=== PATIENT | female | born 1950 | race Hispanic/Latino ===

== ENCOUNTER 2019-12-22 14:46 | Emergency (ER) | payer BC, SELFPAY ==
--- NOTE | 2019-12-22 14:55 | ED.DIZZY ---
HPI - Dizziness General Chief Complaint: Dizziness Stated Complaint: Dizziness Time Seen by Provider: 12/22/19 14:55 Source: patient and RN notes reviewed History of Present Illness HPI Narrative: Patient is a 69-year-old female who presents the urgent care with complaints of dizziness. Patient states that the dizziness started approximately 4 to 5 days ago and has not been consistent. Patient states that it did improve however, she noticed some dizziness walking out of the store this afternoon. Patient states that time she feels like she is going to pass out . Patient states that she has had issues with inner ear problems in the right ear in the past . Does report of this dizziness being different than the past. Denies of any recent trauma, fall, head injury. Patient denies of any headache or chest pain. Patient has not used anything for her symptoms. Patient states that she did notice some right ear pressure and sinus pressure the other day but, currently denies of upper respiratory complaints. No other acute complaints. No acute distress noted. Patient had a plan of care. Related Data Home Medications Medication Instructions Recorded Confirmed metformin 1,000 mg PO DAILY 12/22/19 12/22/19 Allergies Allergy/AdvReac Type Severity Reaction Status Date / Time No Known Allergies Allergy Verified 02/17/19 10:44 Review of Systems Review of Systems: Narrative: CONSTITUTIONAL: Denies fever, chills, or sweats. EYES: Denies visual changes, redness, or discharge. ENT: Denies rhinorrhea, congestion, sore throat, or otalgia. CARDIOVASCULAR: Denies chest pain, palpitations, or edema. RESPIRATORY: Denies cough or dyspnea. GASTROINTESTINAL: Denies abdominal pain, nausea, vomiting, or diarrhea. GENITOURINARY: Denies dysuria or hematuria. SKIN: Denies rash or itching. MUSCULOSKELETAL: Denies back pain, joint pain, or myalgia. NEUROLOGIC: Reports of dizziness All other systems reviewed are negative, except as documented in HPI. PMFSH Comments At the time of my signature, I reviewed and agree with the nursing past medical, surgical, social, and family history. There is no relevant family history pertinent to the patient complaint. Exam Narrative: Exam Narrative: GENERAL: This is a well-nourished, well-developed patient, in no apparent distress. HEAD: normocephalic, atraumatic. EYES: PERRL. Sclera clear/white. Vision is grossly intact. EARS: External ears normal, auditory canals clear and without drainage, mild fluid noted behind right TM with notable cerumen, left TMs normal without perforation. Hearing grossly intact. NOSE: External nose normal with no obvious nasal discharge, nares without redness, no rhinorrhea. THROAT: Mucous membranes moist, posterior pharynx clear. Mild postnasal drainage NECK: Neck supple CARDIOVASCULAR: Regular rate and rhythm without murmurs, gallops, or rubs. RESPIRATORY: Clear to auscultation. Breath sounds equal bilaterally. No wheezes, rales, or rhonchi. SKIN: warm, intact with no suspicious lesions or rash, good texture and turgor. NEURO: awake, alert, and oriented to person, place and time. There were no obvious focal neurologic abnormalities. EXTREMITIES: No clubbing, cyanosis, or edema. Course Vital Signs Vital signs: Vital Signs Temperature 98.9 F 12/22/19 15:03 Pulse Rate 75 12/22/19 15:03 Respiratory Rate 18 12/22/19 15:03 Blood Pressure 177/71 H 12/22/19 15:03 Pulse Oximetry 100 12/22/19 15:03 Temperature 98.9 F 12/22/19 15:03 Pulse Rate 79 12/22/19 15:23 Respiratory Rate 18 12/22/19 15:03 Blood Pressure 140/61 12/22/19 15:23 Pulse Oximetry 100 12/22/19 15:03 Reviewed?patient is informed that they may have pre-hypertension or hypertension based on a blood pressure reading in the department. I recommend the patient call the primary care provider listed on their discharge instructions or a physician of their choice this week to arrange follow-up for f
[2019-12-22 15:03] VITALS: BP 177/71; PULSE 75; RESP 18; TEMP 37.2; O2SAT 100
[2019-12-22 15:22] VITALS: BP 138/59; PULSE 68
[2019-12-22 15:23] VITALS: BP 140/61; BP 148/64; PULSE 73; PULSE 79
--- NOTE | 2019-12-22 15:24 | ECG_ITS ---
Measurements Intervals [place] Rate: 69 P: 70 DC: 150 QRS: 16 QRSD: 80 T: 55 QT: 375 QTc: 402 Interpretive Statements SINUS RHYTHM NORMAL ECG Electronically Signed On 12-23-2019 10:07:47 CDT by Gianni Chahal D.O.
[2019-12-22 15:31] LABS: Glucose Point of Care 111 (65-105)
== END 2019-12-22 15:34 | disposition home or self-care (01) ==
PROVIDERS: Emergency Provider Nurse Practitioner Family; PCP Family Medicine
DX: R42 Dizziness and giddiness (principal); E11.9 Type 2 diabetes mellitus without complications; Z79.84 Long term (current) use of oral hypoglycemic drugs
CPT/HCPCS: 82948; 93005; 99213; G0463

== ENCOUNTER 2024-06-17 22:44 | Emergency (ER) | payer SELFPAY ==
--- NOTE | ~2024-06-17 | CT_ITS ---
Non-contrast CT scan of the Abdomen and Pelvis Clinical indication: Left ureteral stone Technique: 2.5 mm axial scans were obtained through the abdomen and pelvis without intravenous or or al contrast. Dose reduction technique was used on this scan by utilizing automated exposure control a nd iterative reconstruction technique. The dose-length product (DLP) was 484.18 mGy-cm. Findings: Images through the lung bases reveal no abnormalities. There is no evidence of renal or ureteral calculi. The kidneys and the ureters are nondilated. Diffusely nodular contour of liver is compatible cirrhotic change. Cholecystectomy clips are present. The spleen, pancreas, and adrenals appear normal. There is no aortic aneurysm. There is no evidence of bowel obstruction. Images through the pelvis were performed. There is no evidence of ascites or lymphadenopathy. Urinary bladder unremarkable. No pelvic mass seen. Probable chronic compression deformity L3. Impression: No renal, ureteral, or bladder stone. No hydronephrosis. Cirrhotic liver. Reviewed, dictated and finalized at [facility]. ING SUPERVISOR Impression: No renal, ureteral, or bladder stone. No hydronephrosis. Cirrhotic liver.
[2024-06-17 22:46] VITALS: BP 181/82; PULSE 80; RESP 13; TEMP 36.9; O2SAT 100
[2024-06-17 23:19] LABS: Bacteria Urine 1+ /hpf; Need Manual Microscopic Reviewed; Non Pathogenic Casts 0-2; RBC Urine >100 /hpf (0-2); Squamous Epithelial Cell Urine Occasional /hpf (Few)
[2024-06-17 23:20] LABS: Add Urine Microscopic? YES; Appearance Urine Turbid (Clear); Bilirubin Urine 1+ (Negative); Blood Urine 3+ (Negative); Color Urine Red (Yellow); Glucose Urine UA 2+ mg/dL (Negative); Ketones Urine Negative (Negative); Leukocyte Esterase Ur 2+ LEU/UL (Negative); Nitrate Urine Positive (Negative); Protein Urine 3+ mg/dL (Negative); Specific Grav Ur 1.015 (1.001-1.035); Urobilinogen Urine 0.2 mg/dL (<2.0)
[2024-06-17 23:21] LABS: WBC Urine 51-75 /hpf (0-3)
--- NOTE | 2024-06-17 23:47 | ED_ITS ---
HPI - Female Genitourinary General Chief complaint: Urogenital-Female Stated complaint: uti Time Seen by Provider: 06/17/24 23:31 History of Present Illness HPI Narrative: 73-year-old female with reported history of cervical cancer greater than 20 years ago presents to the emergency department with at bedside for dysuria and hematuria for 2 days. Patient states she has been passing blood when urinating. States yesterday she felt like she has some difficulty urinating. She has reports urinary frequency, urgency and dysuria. She is reporting some pain to her suprapubic region and left abdomen. She denies history of kidney stones. States she has been in remission for cervical cancer for greater than 20 years. She did undergo chemotherapy and radiation at that time. Related Data Home Medications Medication Instructions Recorded Confirmed metformin 500 mg tablet,extended 1,000 mg PO DAILY 12/22/19 12/22/19 release 24 hr Allergies Allergy/AdvReac Type Severity Reaction Status Date / Time No Known Allergies Allergy Verified 02/17/19 10:44 Review of Systems Review of Systems: All systems reviewed & are unremarkable except as noted in HPI and below Exam Narrative: GENERAL: Well-appearing, well-nourished, and in no acute distress. HEAD: Normocephalic, atraumatic. EYES: PERRLA and EOMI. ENT: Nares clear, no rhinorrhea or epistaxis. Mucous membranes moist. NECK: Supple. CHEST: Clear to auscultation. No respiratory distress. HEART: Regular rate and rhythm. No murmur heard. Normal peripheral pulses. ABDOMEN: Soft, nontender, nondistended, normal active bowel sounds. No rebound, guarding or rigidity. No CVA tenderness. EXTREMITIES: Normal range of motion. No edema. SKIN: Warm, dry, no rash. NEURO: No focal deficits. Alert and oriented x3 Course Vital Signs Vital signs: Vital Signs Temperature 98.4 F 06/17/24 22:46 Pulse Rate 80 06/17/24 22:46 Respiratory Rate 13 06/17/24 22:46 Blood Pressure 181/82 H 06/17/24 22:46 Pulse Oximetry 100 06/17/24 22:46 Temperature 98.4 F 06/17/24 22:46 Pulse Rate 80 06/17/24 22:46 Respiratory Rate 13 06/17/24 22:46 Blood Pressure 181/82 H 06/17/24 22:46 Pulse Oximetry 100 06/17/24 22:46 MDM - Female Genitourinary MDM Narrative Medical decision making narrative: 73-year-old female presents to the emergency department for hematuria, dysuria urinary frequency urgency and left-sided abdominal pain. Triage vitals with hypertension of 181/82, otherwise unremarkable. She is afebrile nontoxic appearing. Exam significant for the above.\ Urinalysis shows a UTI with 51-75 wbc's, 2+ leuk esterase and positive nitrates. There also greater than 100 RBCs. Given patient's abdominal pain, will obtain CT abdomen pelvis to rule out ureterolithiasis. CT abdomen pelvis without contrast shows no evidence of renal calculi or signs of collecting system type dilatation. There is diffuse bladder wall thickening with adjacent stranding consistent with a UTI. There is also evidence of an age-indeterminate L3 compression fracture, however patient has no tenderness to palpation overlying L3. Patient has been updated on workup. Suspect symptoms secondary to UTI. She is started on Keflex in the ED and this is sent to the pharmacy. Advised follow-up with PCP and discuss strict ED return precautions. They are agreeable to plan verbalized understanding. Discharged in stable condition. Lab Data 06/18/24 01:00 06/18/24 01:00 Labs: Lab Results 06/17/24 06/18/24 Range/Units 23:02 01:00 WBC 6.5 (4.5-10.0) K/mm3 RBC 4.58 (4.2-5.4) M/mm3 Hgb 14.4 (12.0-15.0) g/dL Hct 42.0 (37.0-47.0) % MCV 91.7 (80-100) fl MCH 31.4 (26-34) pg MCHC 34.3 (32-36) g/dl RDW 13.4 (11.5-14.5) % Plt Count 103 L (150-375) k/mm3 MPV 10.7 H (7.4-10.4) fl Immature Gran % (Auto) 0.5 (0-0.5) % Neut % (Auto) 58.0 (45.5-73.1) % Lymph % (Auto) 32.6 (18.3-44.2) % [place] % (Auto) 6.6 (2.6-8.5) % Eos % (Auto) 1.8 (0-4.4) % Baso % (Auto) 0.5 (0.2-1.2) % Lymph # (Auto) 2.13 (0.9-3.2) K/mm3 [place] # (Auto) 0.4 (0.1-0.6) K/mm3 Eos # (Auto) 0.1 (0-0.3) K/mm3 Baso # (Auto) 0.0 (0.0-0.1) K/mm3 Abs Immat Gran (auto) 0.03 (0.00-0.031) K/mm3 Absolute Neuts (auto) 3.8 (1.3-6.7) K/mm3 Absolute Nucleated RBC 0.000 (0.0-0.012) K/mm3 Nucleated RBC % 0.0 (0.0-0.2) % % Immature Plt Fraction 4.2 (0.9-11.2) % Sodium 137 (137-145) mmol/L Potassium 4.1 (3.4-5.0) mmol/L Chloride 102 (98-107) mmol/L Carbon Dioxide 29 (22-30) mmol/L Anion Gap 6 (4-12) mmol/L BUN 13 (7-17) mg/dL Creatinine 0.60 L (0.7-1.0) mg/dL Estim Creat Clear Calc 73 ml/min Estimated GFR > 60 (59 - ) Glucose 233 H (65-110) mg/dL Calcium 9.2 (8.4-10.2) mg/dL Total Bilirubin 0.7 (0.2-1.3) mg/dL AST 45 H (14-36) U/L ALT 27 (6-35) U/L Alkaline Phosphatase 168 H (38-126) U/L Total Protein 8.0 (6.3-8.2) g/dL Albumin 3.9 (3.5-5.1) g/dL Lipase 265 (23-300) U/L Urine Color Red H (Yellow) Urine Appearance Turbid H (Clear) Urine pH 6.0 (5.0-9.0) Ur Specific [place] 1.015 (1.001-1.035) Urine Protein 3+ H (Negative) mg/dL Urine Glucose (UA) 2+ H (Negative) mg/dL Urine Ketones Negative (Negative) mg/dL Ur Blood (Man) 3+ H (Negative) Urine Nitrate Positive H (Negative) Urine Bilirubin 1+ H (Negative) Urine Urobilinogen 0.2 (<2.0) mg/dL Add Ur Microanalysis Reviewed Leukocyte Esterase Rfl 2+ H (Negative) ROMELIA/UL Urine RBC >100 H (0-2) /hpf Urine WBC 51-75 H (0-3) /hpf Ur Squamous Epith Cells Occasional (Few) /hpf Urine Bacteria 1+ H /hpf Urine Casts 0-2 Discharge Plan Discharge Clinical Impression: Urinary tract infection Qualifiers: Urinary tract infection type: acute cystitis Hematuria presence: with hematuria Qualified Code(s): N30.01 - Acute cystitis with hematuria Patient Disposition: Home, Self-Care Condition: Stable Instructions: Antibiotic Form, Urinary Tract Infection in Women (ED) Additional Instructions: Take antibiotics as directed follow-up with your primary care provider. Return to the emergency department if you develop more blood in your urine, fever, abdominal pain, or other concerning symptoms. Prescriptions: New phenazopyridine [Pyridium] 200 mg tablet 200 mg PO TID PRN (Reason: pain) Qty: 14 0RF cephalexin 500 mg capsule 500 mg PO Q6H Qty: 28 0RF No Action metformin 500 mg tablet extended release 24 hr 1,000 mg PO DAILY fluticasone propionate [Flonase Allergy Relief] 50 mcg/actuation spray ,suspension 2 spray NASAL DAILY Qty: 15.8 0RF Rx Instructions: administer into each nostril meclizine 12.5 mg tablet 12.5 mg PO TID PRN (Reason: dizziness or vertigo) Qty: 20 0RF Follow-up/Referrals: PHYSICIAN,EMBOSSING CLERK [Primary Care Provider] - Marlon Mauro MD [Physician] - 1 Day
[2024-06-18 01:11] LABS: Basophils Percent Auto 0.5 % (0.2-1.2); Eosinophils Absolute Auto 0.1 K/mm3 (0-0.3); Eosinophils Percent Auto 1.8 % (0-4.4); Hemoglobin 14.4 g/dL (12.0-15.0); Immature Granulocyte Absolute 0.03 K/mm3 (0.00-0.031); Immature Granulocyte Percent A 0.5 % (0-0.5); Immature Platelet Fraction Pct 4.2 % (0.9-11.2); Lymphocytes Absolute Auto 2.13 K/mm3 (0.9-3.2); Lymphocytes Percent Auto 32.6 % (18.3-44.2); Mean Corpuscular HGB Conc 34.3 g/dl (32-36); Mean Corpuscular Hemoglobin 31.4 pg (26-34); Mean Corpuscular Volume 91.7 fl (80-100); Mean Platelet Volume 10.7 fl (7.4-10.4); Monocytes Absolute Auto 0.4 K/mm3 (0.1-0.6); Monocytes Percent Auto 6.6 % (2.6-8.5); Neutrophils Absolute Auto 3.8 K/mm3 (1.3-6.7); Platelet Count Result 103 k/mm3 (150-375); Red Blood Count 4.58 M/mm3 (4.2-5.4); Red Cell Distribution Width 13.4 % (11.5-14.5); White Blood Count 6.5 K/mm3 (4.5-10.0)
[2024-06-18 01:18] LABS: Alanine Aminotransferase 27 U/L (6-35); Albumin Level 3.9 g/dL (3.5-5.1); Alkaline Phosphatase 168 U/L (38-126); Anion Gap 6 mmol/L (4-12); Aspartate Amino Transferase 45 U/L (14-36); Bilirubin,Total 0.7 mg/dL (0.2-1.3); Blood Urea Nitrogen 13 mg/dL (7-17); Calcium 9.2 mg/dL (8.4-10.2); Carbon Dioxide 29 mmol/L (22-30); Chloride 102 mmol/L (98-107); Estimated CRCL calculation 73 ml/min; Estimated Glomerular Filt Rate > 60; Glucose 233 mg/dL (65-110); Lipase 265 U/L (23-300); Potassium 4.1 mmol/L (3.4-5.0); Sodium 137 mmol/L (137-145)
[2024-06-18 02:00] VITALS: BP 172/80; PULSE 86; RESP 15; O2SAT 98
[2024-06-18] MEDS: CEPHALEXIN 500 MG CAPSULE PO (03:35)
[2024-06-18 03:43] VITALS: BP 174/83; PULSE 82; RESP 14; TEMP 36.8; O2SAT 100
[2024-06-18 03:44] VITALS: BP 174/83; PULSE 82; RESP 14; TEMP 36.8; O2SAT 100
== END 2024-06-18 03:57 | disposition home or self-care (01) ==
PROVIDERS: Emergency Medicine; Emergency Provider Physician Assistant
DX: N30.01 Acute cystitis with hematuria (principal)
CPT/HCPCS: 36415; 74176; 80053; 81001; 83690; 85025; 85055; 87077; 87086; 87186; 99284; A9270

== ENCOUNTER 2025-06-26 17:22 | Inpatient (IN) | payer MEDICARE, MEDICAID, SELFPAY ==
--- OUTSIDE RECORDS SUMMARY | 2013-10-29 10:30 | XMS_ITS | Continuity of Care Document ---
Author Organization [facility] Address [address] [place] [address] [address] [place] [address] Phone Care Team Providers Care Automat Car Attendant Name Role Phone Terence ALEJANDRE MD, Nick Unavailable Unavailable Procedures Procedure Date OFFICE/OUTPATIENT VISIT, [facility]THALMIC [facility] OPHTHALMIC BIOMETRY SPECIAL EYE EXAM, INITIAL SPECIAL EYE EXAM, INITIAL Advance Directives Directive Yes / No Effective Date File Name No Information Encounters Encounter Description Practice Location Reason(s) For Visit Diagnoses Date Provider Providers Copied on Encounter OFFICE/OUTPA TIENT VISIT, [facility], [address], [place], [place], [id number], [place] tel:[phone] [facility] No Information 4 Terence Romero. [address] [facility], [address], [place], [place], [id number] , [place]. tel:[phone] Referring Provider: Nick Pratt MD P, [address] [facility] [address], [place], [address] . tel:[phone] Family History Family Member Type Diagnosis Age At Onset No Information Payers Payer name Insurance type Covered green party ID Authorrowena malagon(s) [facility] [id number] Social History Type Description Quantity Date Captured Comments Sex Female Smoking Status No Information Chief Complaint And Reason For Visit No Information Reason For Referral Reason For Referral No Information History Of Present Illness Encounter Date Complaint History Of Prese nt Illness No Information Functional Status Date Functional Assessmen t No Information Instructions Date Instruction Additional Infor mation No Information Assessments Type Assessment Date No Information Patient Care Teams Name Effective Dates (start - stop) Status Members No Information
--- NOTE | ~2025-06-26 | XR_ITS ---
EXAMINATION: XR chest 2V DATE: 06/26/2025 18:10 INDICATION: Weakness. TECHNIQUE: Frontal and lateral views of the chest were obtained. COMPARISON: Significant cardiomegaly. Moderate atherosclerotic aorta. Lungs are emphysematous. Mild congestion of the lung bases and blunting of costophrenic angles are noted particularly on the lateral view suggesting mild changes of congestive heart failure. FINDINGS: Cardiomegaly, atherosclerotic aorta and emphysema. Mild congestive changes of lung bases with minimal bilateral pleural effusion seen best in the lateral view. Mild changes of congestive heart failure. IMPRESSION: 1. Reviewed, dictated and finalized at location T. SOFTWARE DEVELOPMENT ENGINEER IMPRESSION: 1.
--- NOTE | ~2025-06-26 | CT_ITS ---
EXAMINATION: CTA abdomen pelvis DATE: 06/26/2025 22:36 INDICATION: Gastrointestinal hemorrhage. TECHNIQUE: Computed tomographic angiography (CTA) of the abdomen and pelvis was performed with 100 mL Omnipaque-350 intravenous contrast. Automated exposure control and iterative reconstruction technique were employed. The dose-length product was 908.83 mGy-cm. Maximum intensity projection 3D-reconstructions of the aorta and other arteries were constructed by the technologist on a separate workstation. COMPARISON: CT abdomen and pelvis 06/18/2025 FINDINGS: The visualized portions of lung bases demonstrate septal thickening, consistent mild pulmonary edema. There are small pleural effusions. There is left atrial enlargement of the heart. There are coronary artery calcifications. No pericardial effusion. The liver demonstrates surface nodularity, consistent with cirrhosis. There are changes of cholecystectomy. The spleen is normal in size. The pancreas, adrenal glands, and left kidney are normal. There is a 1.3 cm cyst in right kidney. There is a 1.5 cm mass at anterior bladder wall. There is material in the bladder lumen, consistent with hematoma. There is diverticulosis of the colon without evidence of diverticulitis. The appendix is not visualized. There are no dilated loops of bowel. There is wall thickening of the rectum. There is a small volume of ascites. There is no significant stenosis of celiac axis, superior mesenteric artery, the renal arteries, or inferior mesenteric artery. There are no pathologically enlarged lymph nodes. There is severe lumbar spondylosis. There are chronic burst fractures of L3 and L4. There is a hemangioma in L1 vertebral body. IMPRESSION: 1. Mild pulmonary edema with small pleural effusions. 2. Cirrhosis of the liver. 3. Small volume of ascites. 4. Bladder mass suspicious for urothelial carcinoma. Hematoma in the bladder. 5. Wall thickening of the rectum, consistent with proctitis. Reviewed, dictated and finalized at location E. NFORMATICIAN
--- NOTE | ~2025-06-26 | CT_ITS ---
CT pelvis without contrast Clinical History: Cystogram, eval for progression of perforation Comparison: CT abdomen and pelvis without contrast [address] pelvis with contrast 1 day prior Technique: Pelvic images Coronal, sagittal reformats CT images acquired with automatic exposure control for dose reduction DLP: 825 mGy-cm Findings: Without intravenous contrast, sensitivity for detecting visceral parenchymal abnormalities decreased. Initial images demonstrate urinary bladder collapsed with Mitchell catheter, with persistent foci of intraluminal gas and extravesicular/pelvic extraperitoneal gas locules. Persistent large pelvic ascites. Subsequent images after injecting contrast through Mitchell catheter balloon demonstrated urinary bladder minimally distended with no definite extravasation. Delayed images demonstrate small extravesicular contrast with urinary bladder completely collapsed around Mitchell catheter. No other acute abnormality or significant change. IMPRESSION: 1. Small bladder leak again identified. Reviewed, dictated and finalized at location R. RIMENTAL OUTBOARD MOTORS MECHANIC
--- NOTE | ~2025-06-26 | CT_ITS ---
EXAMINATION: CT pelvis w con COMPARISON: None HISTORY: CT Cystogram to evaluate for bladder perforation TECHNIQUE: Axial images were obtained without IV contrast. Sagittal, coronal reconstruction images were obtained from the axial views. CT scan performed using dose optimization techniques including the following automated exposure control; adjustment of mA and/or kV; use of iterative reconstruction technique. Automatic exposure control was used to reduce radiation dose. Permanent radiation dose record is archived to PACS. FINDINGS: Moderate degenerative changes of the visualized lumbar spine. Minimal degenerative changes in the sacroiliac joints bilaterally. Minimal degenerative changes within the acetabular femoral joints bilaterally. There is no fracture or dislocation identified. No avascular necrosis. There is no intramuscular hemorrhage or subcutaneous fluid collection There are postsurgical changes noted in the abdominal wall. Moderate amount of free fluid is noted in the pelvis. There is a Mitchell catheter within the bladder with contrast within the bladder with contrast extending beyond the anterior wall of the bladder with a defect in the bladder wall noted anteriorly and superiorly measuring 9 mm. There is an noted within the space of Retzius and the retroperitoneal space anterior to the bladder. Moderate fecal content throughout the large bowel. Moderate diverticulosis. There is no gross colitis or diverticulitis. The uterus is atrophic. No adnexal mass. IMPRESSION: Defect within the bladder wall detailed above with extravesicular contrast. Reviewed, dictated and finalized at location P. ER DRIER OPERATOR IMPRESSION: Defect within the bladder wall detailed above with extravesicular c ontrast.
--- NOTE | ~2025-06-26 | CT_ITS ---
CT ABDOMEN AND PELVIS WITHOUT CONTRAST Clinical History: fever post-cysto, check for potential obstruction Comparison: CTA abdomen and pelvis 06/26/2025 Technique: Unenhanced axial images lung bases to symphysis pubis Coronal, sagittal reformats CT images acquired with automatic exposure control for dose reduction DLP: 1297 mGy-cm Findings: Without intravenous contrast, sensitivity for detecting visceral parenchymal abnormalities decreased. Lung bases: Clear. Visualized heart and pericardium: Unremarkable. Liver: Cirrhosis. Gallbladder: Removed. Spleen: Enlarged. Pancreas: Unremarkable. Adrenal glands: Unremarkable. Kidneys: Right kidney- No hydronephrosis. No renal stones. Left kidney- No hydronephrosis. No renal stones. Distal esophagus/stomach: Unremarkable. Small bowel loops: Normal caliber and wall thickness. Colon: Diverticula. Normal caliber and wall thickness. Appendix not seen. Nodes: No enlarged nodes. Peritoneum: No ascites. No free intraperitoneal air. Urinary bladder: Collapsed around Mitchell catheter. Intraluminal gas. Intramural gas. Small extraperitoneal gas along bladder. Uterus: Unremarkable. Adnexa: No masses. Bones: No acute bony abnormality. Soft tissues: Mild body wall anasarca. Lower abdominal wall/vulvar skin thickening/cellulitis. Unopacified abdominal aorta: No aneurysmal dilatation. IMPRESSION: 1. Highly worrisome for urinary bladder perforation. Reviewed, dictated and finalized at location R. CIPLE INDUSTRIAL HYGIENIST
[2025-06-26 17:39] VITALS: BP 130/38; PULSE 102; RESP 18; TEMP 37.3; O2SAT 98
--- NOTE | 2025-06-26 17:53 | ECG_ITS ---
Test Date: 2025-06-26 20:28:08 Measurements Intervals [place] Rate: 93 P: 13 [place]: 144 QRS: 17 QRSD: 77 T: 152 QT: 350 QTc: 436 Interpretive Statements SINUS RHYTHM LOW QRS VOLTAGE IN PRECORDIAL LEADS [QRS DEFLECTION < 1.0 mV IN CHEST LEADS] NONSPECIFIC T-WAVE ABNORMALITY ABNORMAL ECG No previous ECG available for comparison Electronically Signed On 06-27-2025 07:55:18 WILDLIFE TECHNICIAN by Joseluis Aguilar M.D.
[2025-06-26 20:30] VITALS: BP 139/46; PULSE 89; TEMP 37.5; O2SAT 100
[2025-06-26 20:45] LABS: Immature Granulocyte Percent A 0.4 % (0-0.5); Lymphocytes Absolute Auto 1.72 K/mm3 (0.9-3.2); Mean Corpuscular HGB Conc 23.8 g/dl (32-36); Mean Corpuscular Hemoglobin 16.2 pg (26-34); Mean Corpuscular Volume 68.1 fl (80-100); Nucleated Red Blood Cells Absolute Auto 0.040 K/mm3 (0.0-0.012); Nucleated Red Blood Cells Perc 0.5 % (0.0-0.2); Platelet Count Result 121 k/mm3 (150-375); Red Blood Count 1.91 M/mm3 (4.2-5.4); White Blood Count 7.5 K/mm3 (4.5-10.0)
[2025-06-26 20:49] LABS: Hematocrit 13.0 % (37.0-47.0); Hemoglobin 3.1 g/dL (12.0-15.0)
[2025-06-26 20:58] LABS: Anisocytosis 2+; Hypochromasia 1+; Microcytosis 1+ (NORMAL); Ovalocytes 1+; Schistocytes None Seen
[2025-06-26 21:02] LABS: Alanine Aminotransferase 14 U/L (6-35); Albumin Level 2.8 g/dL (3.5-5.1); Alkaline Phosphatase 79 U/L (38-126); Anion Gap 4 mmol/L (4-12); Aspartate Amino Transferase 20 U/L (14-36); Bilirubin,Total 1.2 mg/dL (0.2-1.3); Blood Urea Nitrogen 11 mg/dL (7-17); Calcium 7.9 mg/dL (8.4-10.2); Carbon Dioxide 23 mmol/L (22-30); Chloride 108 mmol/L (98-107); Estimated Glomerular Filt Rate > 60; Glucose 164 mg/dL (65-110); Potassium 4.1 mmol/L (3.4-5.0); Sodium 135 mmol/L (137-145); Total Protein 5.9 g/dL (6.3-8.2)
[2025-06-26 21:41] VITALS: BP 101/83; PULSE 98; RESP 21; O2SAT 100
[2025-06-26 21:42] VITALS: PULSE 100
[2025-06-26] MEDS: PANTOPRAZOLE SODIUM IV 40 MG VIAL 80 MG IV PUSH (22:25)
[2025-06-26] MEDS: SODIUM CHLORIDE 0.9% IV 250 ML 30 ML IV CONT (22:42)
--- NOTE | 2025-06-26 22:44 | ED_ITS ---
HPI - General Adult General Chief complaint: Unspecified Stated complaint: headache, UTI Time Seen by Provider: 06/26/25 21:50 History of Present Illness HPI narrative: 74-year-old female with a history of remote cervical cancer treated with radiation therapy and chemotherapy. Did not have any surgeries done as patient states the area of the cancer was in a difficult location. For last few weeks patient has been complaining of dizziness with walking, stomach pain, fatigue, headaches, urinary complaints and bleeding in the toilet bowl. She thinks the bleeding could be from her rectum or vagina or urination and only notices it in the toilet bowl. No history of hemorrhoids but states that she is having straining today defecate. She has had a prior colonoscopy which just polyps. No previous colon cancer to her knowledge. Was otherwise in her normal state of health. No history of transfusions. No history of GI bleeding. Does not take any blood thinner medications. Related Data Home Medications ?Medication ?Instructions ?Recorded ?Confirmed ?Last Taken ?Type No Home Medications 06/27/25 06/27/25 U nknown History Allergies Allergy/AdvReac Type Severity Reaction Status Date / Time No Known Allergies Allergy Verified 06/27/25 04:10 Review of Systems 2 Review of Systems: As reviewed above in HPI [facility] Family History Family History (Updated 06/27/25 @ 04:13 by Josiane García RN) Mother Hypertension Father Cancer Grandparent Cancer Social History Social History Smoking status: Former smoker Tobacco type: cigarettes Alcohol intake: current Substance use: never Substance use type: does not use Lack of Transportation: No Lack of Food: Sometimes True Current Housing: I Have Housing Concerned About Future Housing: No Difficulty Paying Gas/Electric Bills: YES Difficulty Paying for Meds: No Currently Unemployed: No Education: High School Diploma/GED Difficulty w/ Childcare or Family Care: No Spiritual care concerns: No Exam 2 Narrative: GENERAL: Ill-appearing with pallor and weakness generalized. Not any acute respiratory distress HEAD: [Normocephalic, atraumatic.] EYES: Pupils equal reactive, extraocular movements are intact, pale conjunctiva bilaterally ENT: Nares clear, no rhinorrhea or epistaxis. Mucous membranes moist. NECK: Supple. CHEST: [Clear to auscultation. No respiratory distress.] HEART: [Regular rate and rhythm]. No murmur heard. [Normal peripheral pulses.] ABDOMEN: Tender to palpation but no signs of rigidity guarding or peritonitis. Soft. Nondistended. EXTREMITIES: Normal range of motion. [No edema.] SKIN: Warm, dry, no rash. NEURO: [No focal deficits]. Alert and oriented [x3.] PSYCH: [Normal mood and affect.] Course Vital Signs Vital signs: Vital Signs Temperature 37.3 C 06/26/25 17:39 Pulse Rate 102 H 06/26/25 17:39 Respiratory Rate 18 06/26/25 17:39 Blood Pressure 130/38 L 06/26/25 17:39 Pulse Oximetry 98 06/26/25 17:39 Oxygen Delivery Room Air 06/26/25 17:39 Temperature 36.4 C L 06/27/25 04:00 Pulse Rate 82 06/27/25 04:00 Respiratory Rate 16 06/27/25 04:00 Blood Pressure 112/86 06/27/25 04:00 Pulse Oximetry 100 06/27/25 04:00 Oxygen Delivery Room Air 06/26/25 17:39 Medical Decision Making [facility] Narrative Medical decision making narrative: 74-year-old female with a history of remote cervical cancer treated with radiation therapy and chemotherapy. Did not have any surgeries done as patient states the area of the cancer was in a difficult location. For last few weeks patient has been complaining of dizziness with walking, stomach pain, fatigue, headaches, urinary complaints and bleeding in the toilet bowl. She thinks the bleeding could be from her rectum or vagina or with urination and only notices it in the toilet bowl. No history of hemorrhoids but states that she is having straining today defecate. She has had a prior colonoscopy which just polyps. No previous colon cancer to her knowledge. Was otherwise in her normal state of health. No history of transfusions. No history of GI bleeding. Does not take any blood thinner medications. Patient is ill-appearing and very pale. Endorsing generalized weakness and she and acute I did bleeding which could be GI or vaginal in nature. Does have a history of remote cervical cancer that was not treated surgically. Mildly tachycardic. No fever or blood pressure concerns. Broad workup obtained including a CT scan with angiographies of the abdomen pelvis for further evaluation as her hemoglobin came back at 3.1 with severe anemia compared to her baseline 14. No leukocytosis. Differential includes active GI bleeding verses cancerous formation versus cervical/ cancer versus bleeding. Possibility of leukemia as well. Patient given 3 units of packed red blood cells. Digital rectal examination shows guaiac-negative stool and minor small external hemorrhoid that was not bleeding. Patient had 1 unit packed red blood cells and repeat H&H showed significant improvement of 4.7 hemoglobin. Two more units of packed red blood cells going infusing and repeat H&H ordered. CT scan shows several anomalies including urinary bladder wall thickening with soft tissue lesion concerning for malignancy with associated blood products. Also other findings such as proctocolitis and diffuse enterocolitis as well as potential hemorrhoid with tiny hyperdense focus which could be a small hyperemic area or small extravasation of contrast but otherwise no active GI bleed noted per radiology interpretation. Attempted to reach Urology for consult x2 and did not call back. Patient will be admitted to the hospital for urology evaluation and and continued resuscitation with packed red blood cells. Spoke to the hospitalist who accepted the patient to the IMU at this time. Patient started on antibiotics for proctitis and enteritis with Rocephin and Flagyl. Blood cultures obtained. Patient remains hemodynamically stable. Medical Records Medical records reviewed: Yes I reviewed the external patient's medical records. Vital Signs Vital Signs: Vital Signs Temperature 37.3 C 06/26/25 17:39 Pulse Rate 102 H 06/26/25 17:39 Respiratory Rate 18 06/26/25 17:39 Blood Pressure 130/38 L 06/26/25 17:39 Pulse Oximetry 98 06/26/25 17:39 Oxygen Delivery Room Air 06/26/25 17:39 Temperature 36.4 C L 06/27/25 04:00 Pulse Rate 82 06/27/25 04:00 Respiratory Rate 16 06/27/25 04:00 Blood Pressure 112/86 06/27/25 04:00 Pulse Oximetry 100 06/27/25 04:00 Oxygen Delivery Room Air 06/26/25 17:39 Lab Data Lab results reviewed: Yes I reviewed the patient's lab results. 06/27/25 02:39 06/26/25 20:35 Labs: Lab Results 06/26/25 06/26/25 06/26/25 Range/Units 20:35 23:14 23:15 WBC 7.5 (4.5-10.0) K/mm3 RBC 1.91 L (4.2-5.4) M/mm3 Hgb 3.1 L* D (12.0-15.0) g/dL Hct 13.0 L* (37.0-47.0) % MCV 68.1 L (80-100) fl MCH 16.2 L (26-34) pg MCHC 23.8 L (32-36) g/dl RDW 19.4 H (11.5-14.5) % Plt Count 121 L (150-375) k/mm3 MPV 10.8 H (7.4-10.4) fl Immature Gran % (Auto) 0.4 (0-0.5) % Neut % (Auto) 69.2 (45.5-73.1) % Lymph % (Auto) 23.0 (18.3-44.2) % [place] % (Auto) 7.1 (2.6-8.5) % Eos % (Auto) 0.3 (0-4.4) % Baso % (Auto) 0.0 L (0.2-1.2) % Lymph # (Auto) 1.72 (0.9-3.2) K/mm3 [place] # (Auto) 0.5 (0.1-0.6) K/mm3 Eos # (Auto) 0.0 (0-0.3) K/mm3 Baso # (Auto) 0.0 (0.0-0.1) K/mm3 Abs Immat Gran (auto) 0.03 (0.00-0.031) K/mm3 Absolute Neuts (auto) 5.2 (1.3-6.7) K/mm3 Absolute Nucleated RBC 0.040 H (0.0-0.012) K/mm3 Band Neutrophils % Not Reportable Nucleated RBC % 0.5 H (0.0-0.2) % Platelet Estimate Decreased (Adequate) Hypochromasia 1+ Anisocytosis 2+ Microcytosis 1+ (NORMAL) Ovalocytes 1+ Schistocytes None seen Absolute Retic 0.08 (0.02-0.10) 10^6/uL Percent Retic 4.48 H (0.7-4.3) % Immature Retic Fraction 29.7 H (3.0-15.9) % Retic Hgb Content 14.0 L (28.2-36.6) pg Haptoglobin Pending PT 19.6 H (11.1-14.7) Seconds INR 1.7 APTT 35.4 (22.3-36.8) Seconds Sodium 135 L (137-145) mmol/L Potassium 4.1 (3.4-5.0) mmol/L Chloride 108 H (98-107) mmol/L Carbon Dioxide 23 (22-30) mmol/L Anion Gap 4 (4-12) mmol/L BUN 11 (7-17) mg/dL Creatinine 0.80 (0.7-1.0) mg/dL Estim Creat Clear Calc Not Reportable Estimated GFR > 60 (59 - ) Glucose 164 H (65-110) mg/dL Calcium 7.9 L (8.4-10.2) mg/dL Iron 22 L (37-170) ug/dL TIBC 400 (261-462) ug/dL % Saturation 6 L (20-50) % Ferritin 4.44 L (11.1-264) ng/mL Total Bilirubin 1.2 (0.2-1.3) mg/dL AST 20 (14-36) U/L ALT 14 (6-35) U/L Alkaline Phosphatase 79 (38-126) U/L Total Protein 5.9 L (6.3-8.2) g/dL Albumin 2.8 L (3.5-5.1) g/dL Vitamin B12 908.0 (239-931) pg/mL Folate 13.4 (2.76->20) ng/mL Urine Color (Yellow) Urine Appearance (Clear) Urine pH (5.0-9.0) Ur Specific Gonzales (1.001-1.035) Urine Protein (Negative) mg/dL Urine Glucose (UA) (Negative) mg/dL Urine Ketones (Negative) mg/dL Ur Blood (Man) (Negative) Urine Nitrate (Negative) Urine Bilirubin (Negative) Urine Urobilinogen (<2.0) mg/dL Leukocyte Esterase Rfl (Negative) ROMELIA/UL Urine RBC (0-2) /hpf Urine WBC (0-3) /hpf Ur Squamous Epith Cells (Few) /hpf Urine Bacteria (None) /hpf Blood Type O Positive Antibody Screen Negative Crossmatch See Detail 06/27/25 Range/Units 00:08 WBC (4.5-10.0) K/mm3 RBC (4.2-5.4) M/mm3 Hgb (12.0-15.0) g/dL Hct (37.0-47.0) % MCV (80-100) fl MCH (26-34) pg MCHC (32-36) g/dl RDW (11.5-14.5) % Plt Count (150-375) k/mm3 MPV (7.4-10.4) fl Immature Gran % (Auto) (0-0.5) % Neut % (Auto) (45.5-73.1) % Lymph % (Auto) (18.3-44.2) % [place] % (Auto) (2.6-8.5) % Eos % (Auto) (0-4.4) % Baso % (Auto) (0.2-1.2) % Lymph # (Auto) (0.9-3.2) K/mm3 [place] # (Auto) (0.1-0.6) K/mm3 Eos # (Auto) (0-0.3) K/mm3 Baso # (Auto) (0.0-0.1) K/mm3 Abs Immat Gran (auto) (0.00-0.031) K/mm3 Absolute Neuts (auto) (1.3-6.7) K/mm3 Absolute Nucleated RBC (0.0-0.012) K/mm3 Band Neutrophils % Nucleated RBC % (0.0-0.2) % Platelet Estimate (Adequate) Hypochromasia Anisocytosis Microcytosis (NORMAL) Ovalocytes Schistocytes Absolute Retic (0.02-0.10) 10^6/uL Percent Retic (0.7-4.3) % Immature Retic Fraction (3.0-15.9) % Retic Hgb Content (28.2-36.6) pg Haptoglobin PT (11.1-14.7) Seconds INR APTT (22.3-36.8) Seconds Sodium (137-145) mmol/L Potassium (3.4-5.0) mmol/L Chloride (98-107) mmol/L Carbon Dioxide (22-30) mmol/L Anion Gap (4-12) mmol/L BUN (7-17) mg/dL Creatinine (0.7-1.0) mg/dL Estim Creat Clear Calc Estimated GFR (59 - ) Glucose (65-110) mg/dL Calcium (8.4-10.2) mg/dL Iron (37-170) ug/dL TIBC (261-462) ug/dL % Saturation (20-50) % Ferritin (11.1-264) ng/mL Total Bilirubin (0.2-1.3) mg/dL AST (14-36) U/L ALT (6-35) U/L Alkaline Phosphatase (38-126) U/L Total Protein (6.3-8.2) g/dL Albumin (3.5-5.1) g/dL Vitamin B12 (239-931) pg/mL Folate (2.76->20) ng/mL Urine Color Dark red H (Yellow) Urine Appearance Turbid H (Clear) Urine pH 7.0 (5.0-9.0) Ur Specific Gonzales 1.010 (1.001-1.035) Urine Protein 3+ H (Negative) mg/dL Urine Glucose (UA) Negative (Negative) mg/dL Urine Ketones Negative (Negative) mg/dL Ur Blood (Man) 3+ H (Negative) Urine Nitrate Negative (Negative) Urine Bilirubin 1+ H (Negative) Urine Urobilinogen 0.2 (<2.0) mg/dL Leukocyte Esterase Rfl Trace H (Negative) ROMELIA/UL Urine RBC >100 H (0-2) /hpf Urine WBC 4-6 H (0-3) /hpf Ur Squamous Epith Cells Occasional (Few) /hpf Urine Bacteria 3+ H (None) /hpf Blood Type Antibody Screen Crossmatch Imaging Data Attestation: I personally reviewed and interpreted this imaging study as follows: My impression: Impressions Chest X-Ray 06/26/25 18:12 IMPRESSION: 1. Enterocolitis, proctitis, urinary bladder wall mass with potential malignancy in blood products. No active GI bleed noted per radiology. Critical Care Time Critical Care Time Critical Care Time: Yes Total Critical Care Time: 60 Discharge Plan Discharge Clinical Impression: Severe anemia, ABLA (acute blood loss anemia), Bladder mass, Enterocolitis, Proctitis Patient Disposition: Still a Patient Condition: Stable
[2025-06-26 23:19] VITALS: BP 134/58; PULSE 97; RESP 21; O2SAT 98
[2025-06-26 23:35] LABS: Ferritin 4.44 ng/mL (11.1-264); Iron 22 ug/dL (37-170); Percent Iron Saturation 6 % (20-50)
[2025-06-26 23:36] LABS: Immature Reticulocyte Fraction 29.7 % (3.0-15.9); Reticulocyte Hemoglobin Conten 14.0 pg (28.2-36.6); Reticulocytes Absolute 0.08 10^6/uL (0.02-0.10)
[2025-06-26 23:38] LABS: INR 1.7; Prothrombin Time 19.6 Seconds (11.1-14.7)
[2025-06-26 23:38] LABS: Vitamin B12 908.0 pg/mL (239-931)
[2025-06-26 23:39] LABS: Partial Thromboplastin Time 35.4 Seconds (22.3-36.8)
[2025-06-27] VITALS (23 sets, daily range): BP systolic 94–129; BP diastolic 34–86; PULSE 71–101; RESP 16–25; TEMP 36.2–37.2; O2SAT 97–100; BMI 39.3
[2025-06-27 00:32] LABS: Add Urine Microscopic? YES
[2025-06-27 00:33] LABS: Appearance Urine Turbid (Clear); Glucose Urine UA Negative (Negative); Nitrate Urine Negative (Negative); Specific Grav Ur 1.010 (1.001-1.035)
[2025-06-27 00:34] LABS: Leukocyte Esterase Ur Trace LEU/UL (Negative)
[2025-06-27] MEDS: ONDANSETRON INJ 4 MG/2 ML VIAL IV PUSH (00:59)
[2025-06-27] MEDS: TUBING, BLOOD SET 1 EACH XX ×2 (01:16→04:21)
--- NOTE | 2025-06-27 01:33 | PC.NURSE ---
MD verbally states to not get H and H drawn until at least one unit of blood has been administered.
--- NOTE | 2025-06-27 01:48 | PC.NURSE ---
ZION grant first set of blood cultures from R AC when IV was initially inserted.
[2025-06-27 02:49] LABS: Hematocrit 16.8 % (37.0-47.0); Hemoglobin 4.7 g/dL (12.0-15.0)
--- NOTE | 2025-06-27 03:08 | PC.NURSE ---
Per MD and ore charger, this RN will start pt 2nd unit of blood and wait about 30 minutes before administering Iv antibiotics in pt another IV. This RN started pt second unit of blood at 0303 and will wait 30 minutes before starting IV antibiotics in pt R AC IV. Just precautions in case pt were to have a reaction we would be able to differ which is giving the pt a reaction.
--- NOTE | 2025-06-27 03:24 | WPCEDHO ---
ED Hand Off Checklist All vitals saved: YES IV Site documented: YES All med administrations documented: YES Triage Note Triage Note Pt states, I've been sick for 06/26/25 21:34 like a month. Pt reports headache, dizziness when walking, UTI symptoms, stomachache, fatigue, and difficulty walking due to generalized weakness x at least three weeks. Temp 99.2F. Pt also reports that she noticed bright red blood in the toilet, primarily when she urinates, but notices it with BM's as well. Pt states she's unsure if its only urine or if present in stool also . Pt's inner eyelids appears very pale. A&Ox4. HR 102, BP 130/38. Denies taking any blood thinners. Pt reports one month ago she weighed 82.5kg, no recent weight, pt not able to stand on triage scale. RN agrees with this assessment. Allergies No Known Allergies Allergy (Verified 02/17/19 10:44) Active Medications including assessments/comments Sodium Chloride (Normal Saline Iv) 250 mls @ 30 mls/hr IV CONT .[id number] STA Stop: 06/27/25 06:10 Last Admin: 06/26/25 22:42 Dose: 30 mls/hr Documented By: SERENA Infusion/Titration Document 06/26/25 22:42 SERENA (Rec: 06/26/25 22:42 SERENA [id number]) Intake IV Site Peripheral Access Left Antecubital Container Volume 250 Waste Amount 0 Dosing Infusion Rate 30 Cumulative Dose Not Applicable Increase/Decrease Started Elapsed Time Elapsed Time ( 0m minutes) Administered/Completed Medications Discontinued Medications IV Miscellaneous Supplies (Tubing, Blood Set) Confirm Administered Dose 1 each XX .STK-MED ONE Stop: 06/27/25 01:05 Last Admin: 06/27/25 01:16 Dose: 1 each Documented By: ARTURO Ondansetron HCl (Ondansetron Inj 4 Mg/2 Ml Vial) 4 mg IV PUSH ONCE STA Stop: 06/27/25 00:51 Last Admin: 06/27/25 00:59 Dose: 4 mg Documented By: SERENA Pantoprazole Sodium (Pantoprazole Sodium Iv 40 Mg Vial) 80 mg IV PUSH ONCE STA Stop: 06/26/25 21:52 Last Admin: 06/26/25 22:25 Dose: 80 mg Documented By: MCO Notes 06/27/25 03:08 Nurse Note by Xin Morse MD and transit man, this RN will start pt 2nd unit of blood and wait about 30 minutes before administering Iv antibiotics in pt another IV. This RN started pt second unit of blood at 0303 and will wait 30 minutes before starting IV antibiotics in pt R AC IV. Just precautions in case pt were to have a reaction we would be able to differ which is giving the pt a reaction. Initialized on 06/27/25 03:08 - END OF NOTE 06/27/25 01:48 Nurse Note by Xin Morse RN grant first set of blood cultures from R AC when IV was initially inserted. Initialized on 06/27/25 01:48 - END OF NOTE 06/27/25 01:33 Nurse Note by Xin Morse MD verbally states to not get H and H drawn until at least one unit of blood has been administered. Initialized on 06/27/25 01:33 - END OF NOTE Interventions/Assessments Cardiac Monitoring Start: 06/26/25 17:50 Freq: Status: Active Protocol: Document 06/26/25 21:42 MCO (Rec: 06/26/25 21:43 MCO [id number]) Grid Inspector Assessment Grid Inspector Yes Applied Pulse Rate (60-100) 100 EKG Rythm Sinus Rhythm General Assessment Start: 06/26/25 17:50 Freq: Status: Active Protocol: Document 06/26/25 21:36 MCO (Rec: 06/26/25 21:37 MCO [id number]) GA Neurological Assessment Neurological Yes Assessment WNL GA HEENT Assessment Head Symptoms Sinus Pressure/Pain Neck Symptoms None Neck Movement No Limitations GA Genitourinary Assessment Genitourinary Unable to Void,Burning,Hematuria,Retention Symptoms Voiding Method Toilet Urine Color Red,Yellow IV / Saline Lock, Insert Start: 06/26/25 17:22 Freq: Status: Active Protocol: Document 06/27/25 01:47 KRZ (Rec: 06/27/25 01:47 KRZ [id number]) IV Assessment Peripheral Access Right Antecubital IV Catheter Access Initiated IV Insertion Date 06/27/25 IV Insertion Time 01:47 Catheter Gauge 20 IV Insertion 1 Attempts Ultrasound Used for No Placement IV Site Assessment WNL IV Care and WNL Maintenance PA: Neurological Assessment Start: 06/26/25 17:22 Freq: Status: Active Protocol: Document 06/26/25 21:37 [facility] (Rec: 06/26/25 21:38 [facility] [id number]) Neurological Assessment Level of Alert,Awake Consciousness Arousable to Verbal Orientation Oriented to Person,Oriented to Place,Oriented to Time Neurological Headache,Nausea/Vomiting,Weakness, General Symptoms Behavior Appropriate,Cooperative Patient Able to Comprehend Comprehension Memory Description Intact,[place] Intact,Short Term Intact Alberto Coma Scale Eyes Open Verbal Oriented and Alert Motor Follows Commands [place] Coma Total 15 Score Last Vital Signs Temperature 98.9 F 06/27/25 03:02 Pulse Rate 81 06/27/25 03:23 Respiratory Rate 22 H 06/27/25 03:23 Pulse Oximetry 99 06/27/25 03:23 Blood Pressure 119/40 L 06/27/25 03:23 Blood Pressure Mean 66 06/27/25 03:23 Blood Pressure Position Supine 06/27/25 03:23 Oxygen Delivery Room Air 06/26/25 17:39 Weight 82.5 kg 06/26/25 21:34 Last Result - Abnormals Only RBC 1.91 M/mm3 (4.2-5.4) L 06/26/25 20:35 Hgb 4.7 g/dL (12.0-15.0) L* 06/27/25 02:39 Hct 16.8 % (37.0-47.0) L* 06/27/25 02:39 MCV 68.1 fl (80-100) L 06/26/25 20:35 MCH 16.2 pg (26-34) L 06/26/25 20:35 MCHC 23.8 g/dl (32-36) L 06/26/25 20:35 RDW 19.4 % (11.5-14.5) H 06/26/25 20:35 Plt Count 121 k/mm3 (150-375) L 06/26/25 20:35 MPV 10.8 fl (7.4-10.4) H 06/26/25 20:35 Baso % (Auto) 0.0 % (0.2-1.2) L 06/26/25 20:35 Absolute Nucleated RBC 0.040 K/mm3 (0.0-0.012) H 06/26/25 20:35 Nucleated RBC % 0.5 % (0.0-0.2) H 06/26/25 20:35 Percent Retic 4.48 % (0.7-4.3) H 06/26/25 23:14 Immature Retic Fraction 29.7 % (3.0-15.9) H 06/26/25 23:14 Retic Hgb Content 14.0 pg (28.2-36.6) L 06/26/25 23:14 PT 19.6 Seconds (11.1-14.7) H 06/26/25 23:15 Sodium 135 mmol/L (137-145) L 06/26/25 20:35 Chloride 108 mmol/L (98-107) H 06/26/25 20:35 Glucose 164 mg/dL (65-110) H 06/26/25 20:35 Calcium 7.9 mg/dL (8.4-10.2) L 06/26/25 20:35 Iron 22 ug/dL (37-170) L 06/26/25 20:35 % Saturation 6 % (20-50) L 06/26/25 20:35 Ferritin 4.44 ng/mL (11.1-264) L 06/26/25 20:35 Total Protein 5.9 g/dL (6.3-8.2) L 06/26/25 20:35 Albumin 2.8 g/dL (3.5-5.1) L 06/26/25 20:35 Urine Color Dark red (Yellow) H 06/27/25 00:08 Urine Appearance Turbid (Clear) H 06/27/25 00:08 Urine Protein 3+ mg/dL (Negative) H 06/27/25 00:08 Ur Blood (Man) 3+ (Negative) H 06/27/25 00:08 Urine Bilirubin 1+ (Negative) H 06/27/25 00:08 Leukocyte Esterase Rfl Trace ROMELIA/UL (Negative) H 06/27/25 00:08 Urine RBC >100 /hpf (0-2) H 06/27/25 00:08 Urine WBC 4-6 /hpf (0-3) H 06/27/25 00:08 Urine Bacteria 3+ /hpf (None) H 06/27/25 00:08 Crossmatch See Detail 06/26/25 23:14 Most Recent Suicide Severity Rating Suicide Severity Rating NO RISK INDICATED 06/26/25 21:34
[2025-06-27] MEDS: cefTRIAXone 2 GM in SODIUM CHLORIDE 0.9% IV 100 ML 200 ML IVPB (03:39)
--- NOTE | 2025-06-27 03:51 | ADMGEN ---
This patient, Barbara Desir, was admitted to Medical Room 252-01. Patient/family oriented to hospital policies and general routines including ID bracelet, bed and alarms, visiting hours, pain management, procedures, bathroom and other care routines, personal items, smoking policy, room service/diet, and visiting hours. Information on how to activate the Rapid Response Team has been discussed. Patient/Family are encouraged to report perceived risks to care and to ask questions if they do not understand what they are told or what they should do.
[2025-06-27] MEDS: metroNIDAZOLE 500 MG/ISO 100ML 500 MG/100 ML BAG 100 MG IVPB (04:21)
[2025-06-27] MEDS: SODIUM CHLORIDE 0.9% IV 250 ML 30 ML (04:21)
--- NOTE | 2025-06-27 04:31 | PM.IMHP ---
H&P: HPI History of Present Illness Date/Time: 06/27/25 04:31 Chief Complaint: This is a 74-year-old female patient who is a past medical history of having cervical cancer with radiation and chemotherapy. She was not able to have surgery due to the proximity of the cancer to the rectal area. The patient stated that she has been having some bleeding for over a month now. She stated she was not sure if it was coming from her rectum are her urinary tract. She stated when she urinates it is bright red blood. She stated that she has been feeling weak but is not short of breath. She denies any fever or chills. She denies any rectal bleeding.She does feel somewhat weak. She has had a prior colonoscopy and has had some polyps removed. The patient was at sure if she was bleeding from her vagina but she did notice bright red blood in the toilet when she urinated. She is not on any blood thinner. Her H&H was noted to be 3.1 and 13.2. Her reticular count was 4.48, blood glucose 164, calcium 7.9, iron 22, O2 saturation 6 and ferritin 4.44. Her urine was dark red with 3+ protein 3+ blood. Trace leukocyte esterase, urine rbc's greater than 100, urine wbc's 46, and urine bacteria 3+. The patient was given Rocephin and Flagyl in the ER. She was started on IV fluids. For limited airy CT shows urinary bladder wall thickening with ventral wall 1.8 cm polypoid appear soft tissue-may reflect malignancy. Urology has been consulted. The patient is being admitted to observation status on the date of service of 06/27/2025. Review of Systems Constitutional: Constitutional: Reports as per HPI and Reports no additional constitutional complaints Eyes: Eyes: Reports as per HPI and Reports no additional eye complaints ENT: Reports system reviewed and no additional complaints, except as documented and Reports Normal hearing present Cardiovascular: Cardiovascular: Reports no additional cardiovascular complaints Respiratory: Respiratory: Reports as per HPI and Reports no additional respiratory complaints Gastrointestinal: Gastrointestinal: Reports as per HPI and Reports no additional gastrointestinal complaints Genitourinary: Genitourinary: Reports no additional female genitourinary complaints Musculoskeletal: Musculoskeletal: Reports no additional musculoskeletal complaints Integumentary/Breasts: Skin/Breast: Reports system reviewed and no additional complaints, except as docu Neurologic: Reports system reviewed and no additional complaints, except as documented and Reports Normal hearing present Psychiatric: Psychiatric: Reports no additional psychiatric complaints and Reports as per HPI Hematologic/Lymphatic: Hematologic/Lymphatic: Reports no additional hematologic/lymphatic complaints Allergic/Immunologic: Allergic/Immunologic: Reports no additional allergic/immunologic complaints [facility] Past Medical History Medical History (Updated 06/27/25 @ 05:40 by Phylicia Lorenz APRN) Cervical cancer Radiation and chemotherapy Obstructive sleep apnea Surgical History Surgical History (Updated 06/27/25 @ 05:32 by Phylicia Lorenz APRN) History of appendectomy Hx of cholecystectomy H/O section X3 Family History Family History Mother Hypertension Father Cancer Grandparent Cancer Social History Social History (Updated 06/27/25 @ 05:32 by Phylicia Lorenz APRN) Social History: She is and retired. Currently they have no form of transportation. Smoking status: Former smoker Tobacco type: cigarettes Alcohol intake: current Substance use: never Substance use type: does not use Lack of Transportation: No Lack of Food: Sometimes True Current Housing: I Have Housing Concerned About Future Housing: No Difficulty Paying Gas/Electric Bills: YES Difficulty Paying for Meds: No Currently Unemployed: No Education: High School Diploma/GED Difficulty w/ Childcare or Family Care: No Spiritual care concerns: No Meds Home Medications and Allergies Home Medications ?Medication ?Instructions ?Recorded ?Confirmed ?Type No Home Medications 06/27/25 06/27/25 History Allergies Allergy/AdvReac Type Severity Reaction Status Date / Time No Known Allergies Allergy Verified 06/27/25 04:10 Vital Signs Vital Signs - 24 hr 06/26/25 17:39 06/26/25 20:30 06/26/25 21:41 Temperature 99.2 F 99.5 F Pulse Rate 102 H 89 98 Respiratory Rate 18 21 H Blood Pressure 130/38 L 139/46 L 101/83 Pulse Oximetry 98 100 100 Oxygen Delivery Room Air 06/26/25 21:42 06/26/25 23:19 06/27/25 00:31 Temperature 98.7 F Pulse Rate 100 97 99 Respiratory Rate 21 H 25 H Blood Pressure 134/58 L 126/41 L Pulse Oximetry 98 100 Oxygen Delivery 06/27/25 01:12 06/27/25 01:28 06/27/25 02:25 Temperature 98.2 F 98.6 F 98.3 F Pulse Rate 101 H 92 89 Respiratory Rate 24 H 25 H 21 H Blood Pressure 119/47 L 123/60 117/67 Pulse Oximetry 100 100 100 Oxygen Delivery 06/27/25 03:02 06/27/25 03:23 06/27/25 04:00 Temperature 98.9 F 97.5 F L Pulse Rate 87 81 82 Respiratory Rate 23 H 22 H 16 Blood Pressure 123/35 L 119/40 L 112/86 Pulse Oximetry 100 99 100 Oxygen Delivery Exam Narrative: The patient appears pale and ill Const: General: cooperative, comfortable, no acute distress, well developed, awake, Physically active, average body habitus and well nourished Nutritional Appearance: average body habitus and well nourished Orientation/consciousness: oriented to person, oriented to place, oriented to time and patient oriented x3 Limitations: no limitations HENMT: Head: normal to inspection, No palpable skull fracture present, normocephalic, atraumatic and abrasion Ears: hearing grossly normal bilaterally and external ears normal Eyes: General: appearance normal, both eyes and all related structures Alignment and Position: alignment normal Periorbital: periorbital findings normal Eyelids: eyelids normal Neck: Neck: normal visual inspection, full ROM and no lymphadenopathy Chest: Chest palpation & inspection: normal inspection of the chest Resp: Effort & Inspection: normal respiratory effort Auscultation: clear to auscultation bilaterally Percussion: percussion normal Cardio: Palpation: normal PMI Rate: regular rate Rhythm: regular rhythm Heart sounds: S1 normal heart sound present and S2 normal heart sound present Peripheral pulses: Peripheral pulses 2+ throughout GI: Inspection: normal to inspection Percussion: Yes normal to percussion Auscultation: normal bowel sounds Rectal Exam: deferred Back/Spine/Pelvis: Back: no CVA tenderness Skin: General skin exam: normal color Lesions: no lesions Rashes: no rashes Trauma: no lacerations or abrasions Wounds: no wounds Hair: normal Nails: normal Neuro: General: oriented to person, oriented to place, oriented to time and patient oriented x3 Cranial nerves: Yes Equal, round and reactive pupils present and Yes Normal hearing present Cognition (Neuro): normal cognition Speech: normal speech Gait exam (Neuro): Normal gait present Motor exam (neuro): 5/5 motor strength present throughout Sensory Exam: normal sensation Extrem: General: normal to inspection Right upper extremity: normal to inspection and shoulder/upper arm Left upper extremity: normal to inspection and shoulder/upper arm Right lower extremity: normal to inspection Left lower extremity: normal to inspection Psych: Appearance: grossly normal Mental Status: mental status grossly normal Speech and movement: Normal speech and movement present Affect: normal affect Attitude: cooperative Thought process: Normal thought process present Thought content: Yes Normal thought content present Insight: Good insight present (Psych) Judgement: Good judgement present (Psych) H&P: Results Labs Labs: Short CBC 06/26/25 06/27/25 Range/Units 20:35 02:39 WBC 7.5 (4.5-10.0) K/mm3 Hgb 3.1 L* D 4.7 L* (12.0-15.0) g/dL Hct 13.0 L* 16.8 L* (37.0-47.0) % Plt Count 121 L (150-375) k/mm3 BMP 06/26/25 20:35 Sodium 135 L Potassium 4.1 Chloride 108 H Carbon Dioxide 23 BUN 11 Creatinine 0.80 Glucose 164 H Calcium 7.9 L Liver Function 06/26/25 Range/Units 20:35 Total Bilirubin 1.2 (0.2-1.3) mg/dL AST 20 (14-36) U/L ALT 14 (6-35) U/L Alkaline Phosphatase 79 (38-126) U/L Albumin 2.8 L (3.5-5.1) g/dL Urine 06/27/25 Range/Units 00:08 Urine Color Dark red H (Yellow) Urine Appearance Turbid H (Clear) Urine pH 7.0 (5.0-9.0) Ur Specific Mccarley 1.010 (1.001-1.035) Urine Protein 3+ H (Negative) mg/dL Urine Glucose (UA) Negative (Negative) mg/dL ECG Interpretation: SINUS RHYTHM LOW QRS VOLTAGE IN PRECORDIAL LEADS [QRS DEFLECTION < 1.0 mV IN CHEST LEADS] ST DEVIATION AND MODERATE T-WAVE ABNORMALITY, CONSIDER LATERAL ISCHEMIA [-0.1+ mV T-WAVE IN I/aVL/V5/V6] No previous ECG available for comparison Imaging CT scan - abdomen: Radiologist's impression: Impressions Chest X-Ray 06/26/25 18:12 IMPRESSION: 1.FINDINGS: Cardiomegaly, atherosclerotic aorta and emphysema. Mild congestive changes of lung bases with minimal bilateral pleural effusion seen best in the lateral view. Mild changes of congestive heart failure. Assessment and Plan Assessment and plan (1) Hematuria: Code(s): R31.9 - Hematuria, unspecified Status: Acute Assessment and Plan: -H&H every 6 hours . -patient is to get 3 units of packed red blood cells. -patient continues to urinate bright red blood. -vital signs are stable. -urology has been consulted. -CT of the abdomen is suspicious for bladder tumor. -continue with IV fluids as the patient will be NPO for possible procedure with Urology. -the patient has not been on any blood thinners. -daily complaint she had was dizziness but denies any shortness of breath or chest pain. EKG was within normal limits. -initially or H&H was 3.1 and 13.0 but is now 4.7 is 16.8. (2) Bladder mass: Code(s): N32.89 - Other specified disorders of bladder Status: Acute Assessment and Plan: -the patient is NPO for possible procedure with Urology. -urology has been consulted. (3) Obstructive sleep apnea: Code(s): G47.33 - Obstructive sleep apnea (adult) (pediatric) Status: Acute Assessment and Plan: -continue to all trait CPAP as per home settings. (4) Elevated blood sugar: Code(s): R73.9 - Hyperglycemia, unspecified Status: Acute Assessment and Plan: -the patient had an elevated blood sugar. Her blood sugar was noted to be 164. -check A1c Quality VTE Prophylaxis VTE prophylaxis: mechanical ordered
[2025-06-27] MEDS: SODIUM CHLORIDE 0.9% IV 250 ML 100 ML (05:46)
[2025-06-27 08:55] LABS: Hematocrit 26.0 % (37.0-47.0); Hemoglobin 7.8 g/dL (12.0-15.0)
--- NOTE | 2025-06-27 09:15 | P.CONUR_ITS ---
Assessment and Plan Assessment and plan (1) Hematuria: Code(s): R31.9 - Hematuria, unspecified <Anahy WinchesterRANDALL harden - Last Filed: 06/27/25 16:03> Status: Acute <Anahy EsquivelRANDALL - Last Filed: 06/27/25 16:03> (2) Bladder mass: Code(s): N32.89 - Other specified disorders of bladder <Anahy WinchesterRANDALL harden - Last Filed: 06/27/25 16:03> Status: Acute <Anahy EsquivelRANDALL - Last Filed: 06/27/25 16:03> (3) Severe anemia: Code(s): D64.9 - Anemia, unspecified <Anahy ReneeRANDALL marks - Last Filed: 06/27/25 16:03> Status: Acute <Anahy WinchesterRANDALL harden - Last Filed: 06/27/25 16:03> Assessment and Plan: - patient with significant anemia, likely due to blood loss associated with bladder tumor. Continue transfusion as necessary. she has had expected elevation of hematocrit with transfusion today - patient likely will require cystoscopy and transurethral resection of the bladder. This can be performed later in the hospitalization or as an outpatient to be scheduled on monday07/01/[address] Escoto. -Maintain Mitchell catheter <Anahy YeniFarhat Esquivel APRN - Last Filed: 06/27/25 16:03> - patient with significant anemia, likely due to blood loss associated with bladder tumor. Continue transfusion as necessary. she has had expected elevation of hematocrit with transfusion today - patient likely will require cystoscopy and transurethral resection of the bladder. This can be performed later in the hospitalization or as an outpatient in the near future. <Jose Blackman MD - Last Filed: 06/27/25 14:42> Urology Consult Note HPI Date Seen: 06/27/25 <Anahy Esquivel APRN - Last Filed: 06/27/25 16:03> 06/27/25 <Jose Blackman MD - Last Filed: 06/27/25 14:42> Requesting Physician: Dm Langford MD <Anahy Esquivel APRN - Last Filed: 06/27/25 16:03> Primary Care Provider: JAIL MANAGER PHYSICIAN <Anahy Esquivel APRN - Last Filed: 06/27/25 16:03> Consult Narrative Narrative: Barbara Desir is a 74 year old female with a history of remote cervical cancer treated with radiation therapy and chemotherapy. Did not have any surgeries done as patient states the area of the cancer was in a difficult location. For last few weeks patient has been complaining of dizziness with walking, stomach pain, fatigue, headaches, urinary complaints and bleeding in the toilet bowl. She thinks the bleeding could be from her rectum or vagina or urination and only notices it in the toilet bowl. No history of hemorrhoids but states that she is having straining today defecate. She has had a prior colonoscopy which just polyps. No previous colon cancer to her knowledge. Was otherwise in her normal state of health. No history of transfusions. No history of GI bleeding. Does not take any blood thinner medications. <Anahy Esquivel APRN - Last Filed: 06/27/25 16:03> Review of Systems 2 Review of Systems: All systems reviewed & are unremarkable except as noted in HPI and below <Anahy Esquivel APRN - Last Filed: 06/27/25 16:03> PMFSH Past Medical History Medical History: Medical History (Updated 06/27/25 @ 05:40 by Phylicia Lorenz APRN) Cervical cancer Radiation and chemotherapy Obstructive sleep apnea <Anahy Esquivel APRN - Last Filed: 06/27/25 16:03> Surgical History Surgical History: Surgical History (Updated 06/27/25 @ 05:32 by Phylicia Lorenz APRN) History of appendectomy Hx of cholecystectomy H/O section X3 <Anahy Esquivel APRN - Last Filed: 06/27/25 16:03> Family History Family History: Family History Mother Hypertension Father Cancer Grandparent Cancer <Anahy Esquivel APRN - Last Filed: 06/27/25 16:03> Social History Social History: Social History (Updated 06/27/25 @ 05:32 by Phylicia Lorenz APRN) Social History: She is and retired. Currently they have no form of transportation. Smoking status: Former smoker Tobacco type: cigarettes Alcohol intake: current Substance use: never Substance use type: does not use Lack of Transportation: No Lack of Food: Sometimes True Current Housing: I Have Housing Concerned About Future Housing: No Difficulty Paying Gas/Electric Bills: YES Difficulty Paying for Meds: No Currently Unemployed: No Education: High School Diploma/GED Difficulty w/ Childcare or Family Care: No Spiritual care concerns: No <Anahy Esquivel APRN - Last Filed: 06/27/25 16:03> Meds Home Medications and Allergies Home medications: Home Medications ?Medication ?Instructions ?Recorded ?Confirmed ?Type No Home Medications 06/27/25 06/27/25 H istory <Anahy Esquivel APRN - Last Filed: 06/27/25 16:03> Allergies/Adverse reactions: Allergies Allergy/AdvReac Type Severity Reaction Status Date / Time No Known Allergies Allergy Verified 06/27/25 04:10 <Anahy Esquivel APRN - Last Filed: 06/27/25 16:03> Vital Signs Vital Signs - 24 hr 06/26/25 17:39 06/26/25 20:30 06/26/25 21:41 Temperature 99.2 F 99.5 F Pulse Rate 102 H 89 98 Respiratory Rate 18 21 H Blood Pressure 130/38 L 139/46 L 101/83 Pulse Oximetry 98 100 100 Oxygen Delivery Room Air 06/26/25 21:42 06/26/25 23:19 06/27/25 00:31 Temperature 98.7 F Pulse Rate 100 97 99 Respiratory Rate 21 H 25 H Blood Pressure 134/58 L 126/41 L Pulse Oximetry 98 100 Oxygen Delivery 06/27/25 01:12 06/27/25 01:28 06/27/25 02:25 Temperature 98.2 F 98.6 F 98.3 F Pulse Rate 101 H 92 89 Respiratory Rate 24 H 25 H 21 H Blood Pressure 119/47 L 123/60 117/67 Pulse Oximetry 100 100 100 Oxygen Delivery 06/27/25 03:02 06/27/25 03:23 06/27/25 04:00 Temperature 98.9 F 97.5 F L Pulse Rate 87 81 82 Respiratory Rate 23 H 22 H 16 Blood Pressure 123/35 L 119/40 L 112/86 Pulse Oximetry 100 99 100 Oxygen Delivery 06/27/25 04:11 06/27/25 04:11 06/27/25 04:49 Temperature 97.5 F L 97.2 F L Pulse Rate 82 77 Respiratory Rate 16 16 Blood Pressure 112/86 121/46 L Pulse Oximetry 100 100 Oxygen Delivery Room Air 06/27/25 04:53 06/27/25 05:10 06/27/25 05:28 Temperature 98.5 F 98.4 F Pulse Rate 81 80 81 Respiratory Rate 20 20 Blood Pressure 110/34 L 106/38 L Pulse Oximetry 100 100 Oxygen Delivery 06/27/25 06:28 06/27/25 07:28 06/27/25 08:05 Temperature 98.1 F 98.2 F 98.6 F Pulse Rate 77 77 82 Respiratory Rate 20 18 18 Blood Pressure 111/47 L 112/38 L 94/67 L Pulse Oximetry 99 99 100 Oxygen Delivery <Anahy Esquivel APRN - Last Filed: 06/27/25 16:03> Exam 2 Narrative: Patient is awake and alert. She has in no acute distress. Her breathing is unlabored. She has a Mitchell catheter in place with red /clear urine <Jose Blackman MD - Last Filed: 06/27/25 14:42> Results Labs CBC & Chem 7: 06/27/25 14:55 06/26/25 20:35 <Anahy Esquivel APRN - Last Filed: 06/27/25 16:03> Labs: Short CBC 06/26/25 06/27/25 06/27/25 Range/Units 20:35 02:39 08:35 WBC 7.5 (4.5-10.0) K/mm3 Hgb 3.1 L* D 4.7 L* 7.8 L D (12.0-15.0) g/dL Hct 13.0 L* 16.8 L* 26.0 L (37.0-47.0) % Plt Count 121 L (150-375) k/mm3 BMP 06/26/25 20:35 Sodium 135 L Potassium 4.1 Chloride 108 H Carbon Dioxide 23 BUN 11 Creatinine 0.80 Glucose 164 H Calcium 7.9 L Liver Function 06/26/25 Range/Units 20:35 Total Bilirubin 1.2 (0.2-1.3) mg/dL AST 20 (14-36) U/L ALT 14 (6-35) U/L Alkaline Phosphatase 79 (38-126) U/L Albumin 2.8 L (3.5-5.1) g/dL Urine 06/27/25 Range/Units 00:08 Urine Color Dark red H (Yellow) Urine Appearance Turbid H (Clear) Urine pH 7.0 (5.0-9.0) Ur Specific [place] 1.010 (1.001-1.035) Urine Protein 3+ H (Negative) mg/dL Urine Glucose (UA) Negative (Negative) mg/dL <Anahy Esquivel, ETHNIC STUDIES PROFESSOR - Last Filed: 06/27/25 16:03>
--- NOTE | 2025-06-27 10:13 | P.PNIM_ITS ---
Progress Note: A&P Assessment and Plan (1) Hematuria: Code(s): R31.9 - Hematuria, unspecified Status: Acute Assessment and Plan: -H&H every 6 hours . -patient is to get 3 units of packed red blood cells. -patient continues to urinate bright red blood. -vital signs are stable. -urology has been consulted. -CT of the abdomen is suspicious for bladder tumor. HEENT -continue with IV fluids as the patient will be NPO for possible procedure with Urology. -the patient has not been on any blood thinners. -daily complaint she had was dizziness but denies any shortness of breath or chest pain. EKG was within normal limits. -initially or H&H was 3.1 and 13.0 but is now 4.7 is 16.8. repeated hg/hct 7.8/26 monitor closely fall risk (2) Bladder mass: Code(s): N32.89 - Other specified disorders of bladder Status: Acute Assessment and Plan: -the patient is NPO for possible procedure with Urology. -urology has been consulted. - NPO on monday (3) Obstructive sleep apnea: Code(s): G47.33 - Obstructive sleep apnea (adult) (pediatric) Status: Acute Assessment and Plan: -continue to all trait CPAP as per home settings. (4) Elevated blood sugar: Code(s): R73.9 - Hyperglycemia, unspecified Status: Acute Assessment and Plan: -the patient had an elevated blood sugar. Her blood sugar was noted to be 164. -check [id number] this am Time Spent With Patient Time with patient: 25 - 35 minutes Subjective Date/time seen: 06/27/25 10:13 Interval history: This is a 74-year-old female patient who is a past medical history of having cervical cancer with radiation and chemotherapy. She was not able to have surgery due to the proximity of the cancer to the rectal area. The patient stated that she has been having some bleeding for over a month now. She stated she was not sure if it was coming from her rectum are her urinary tract. She stated when she urinates it is bright red blood. She stated that she has been feeling weak but is not short of breath. She denies any fever or chills. She denies any rectal bleeding.She does feel somewhat weak. She has had a prior colonoscopy and has had some polyps removed. The patient was at sugar she was bleeding from her vagina but she did notice bright red blood in the toilet when she urinated. She is not on any blood thinner. Her H&H was noted to be 3.1 and 13.2. Her reticular count was 4.48, articular hemoglobin 14.0, blood glucose 164, calcium 7.9, iron 22, O2 saturation 6 and ferritin 4.44. Her urine was dark red with 3+ protein 3+ blood. Trace leukocyte esterase, urine rbc's greater than 100, urine wbc's 46, and urine bacteria 3+. The patient was given Rocephin and Flagyl in the ER. She was started on IV fluids. For limited airy CT shows urinary bladder wall thickening with ventral wall 1.8 cm polypoid appear soft tissue-may reflect malignancy. Urology has been consulted. The patient is being admitted to observation status on the date of service of 06/27/2025. Pt is seen and examined. Urology is consulted. Pt received blood transfusion. repeated hg is 7.6 Review of Systems Constitutional: Constitutional: Reports as per HPI and Reports no additional constitutional complaints Eyes: Eyes: Reports as per HPI and Reports no additional eye complaints ENT: Reports system reviewed and no additional complaints, except as documented and Reports Normal hearing present Cardiovascular: Cardiovascular: Reports no additional cardiovascular complaints Respiratory: Respiratory: Reports as per HPI and Reports no additional respiratory complaints Gastrointestinal: Gastrointestinal: Reports as per HPI and Reports no additional gastrointestinal complaints Genitourinary: Genitourinary: Reports no additional female genitourinary complaints Musculoskeletal: Musculoskeletal: Reports no additional musculoskeletal complaints Integumentary/Breasts: Skin/Breast: Reports system reviewed and no additional complaints, except as docu Neurologic: Reports system reviewed and no additional complaints, except as documented and Reports Normal hearing present Psychiatric: Psychiatric: Reports no additional psychiatric complaints and Reports as per HPI Hematologic/Lymphatic: Hematologic/Lymphatic: Reports no additional hematologic/lymphatic complaints Allergic/Immunologic: Allergic/Immunologic: Reports no additional allergic/immunologic complaints Exam Narrative: The patient appears pale and ill Const: General: cooperative, comfortable, no acute distress, well developed, awake, Physically active, average body habitus and well nourished Nutritional Appearance: average body habitus and well nourished Orientation/consciousness: oriented to person, oriented to place, oriented to time and patient oriented x3 Limitations: no limitations HENMT: Head: normal to inspection, No palpable skull fracture present, normocephalic, atraumatic and abrasion Ears: hearing grossly normal bilaterally and external ears normal Eyes: General: appearance normal, both eyes and all related structures Alignment and Position: alignment normal Periorbital: periorbital findings normal Eyelids: eyelids normal Pupils: Equal, round and reactive pupils present Neck: Neck: normal visual inspection, full ROM and no lymphadenopathy Chest: Chest palpation & inspection: normal inspection of the chest Resp: Effort & Inspection: normal respiratory effort Auscultation: clear to auscultation bilaterally Percussion: percussion normal Cardio: Palpation: normal PMI Rate: regular rate Rhythm: regular rhythm Heart sounds: S1 normal heart sound present and S2 normal heart sound present Peripheral pulses: Peripheral pulses 2+ throughout GI: Inspection: normal to inspection Auscultation: normal bowel sounds Rectal Exam: deferred : General: Yes no CVA tenderness Back/Spine/Pelvis: Back: no CVA tenderness Skin: General skin exam: normal color Lesions: no lesions Rashes: no rashes Trauma: no lacerations or abrasions Wounds: no wounds Hair: normal Nails: normal Neuro: General: oriented to person, oriented to place, oriented to time and patient oriented x3 Cranial nerves: Yes Equal, round and reactive pupils present and Yes Normal hearing present Cognition (Neuro): normal cognition Speech: normal speech Gait exam (Neuro): Normal gait present Motor exam (neuro): 5/5 motor strength present throughout Sensory Exam: normal sensation Extrem: General: normal to inspection Right upper extremity: normal to inspection and shoulder/upper arm Left upper extremity: normal to inspection and shoulder/upper arm Right lower extremity: normal to inspection Left lower extremity: normal to inspection Psych: Appearance: grossly normal Mental Status: mental status grossly normal Speech and movement: Normal speech and movement present Affect: normal affect Attitude: cooperative Thought process: Normal thought process present Insight: Good insight present (Psych) Judgement: Good judgement present (Psych) Objective Data Vital Signs Vital Signs: Vital Signs - 24 hr 06/26/25 17:39 06/26/25 20:30 06/26/25 21:41 Temperature 99.2 F 99.5 F Pulse Rate 102 H 89 98 Respiratory Rate 18 21 H Blood Pressure 130/38 L 139/46 L 101/83 Pulse Oximetry 98 100 100 Oxygen Delivery Room Air 06/26/25 21:42 06/26/25 23:19 06/27/25 00:31 Temperature 98.7 F Pulse Rate 100 97 99 Respiratory Rate 21 H 25 H Blood Pressure 134/58 L 126/41 L Pulse Oximetry 98 100 Oxygen Delivery 06/27/25 01:12 06/27/25 01:28 06/27/25 02:25 Temperature 98.2 F 98.6 F 98.3 F Pulse Rate 101 H 92 89 Respiratory Rate 24 H 25 H 21 H Blood Pressure 119/47 L 123/60 117/67 Pulse Oximetry 100 100 100 Oxygen Delivery 06/27/25 03:02 06/27/25 03:23 06/27/25 04:00 Temperature 98.9 F 97.5 F L Pulse Rate 87 81 82 Respiratory Rate 23 H 22 H 16 Blood Pressure 123/35 L 119/40 L 112/86 Pulse Oximetry 100 99 100 Oxygen Delivery 06/27/25 04:11 06/27/25 04:11 06/27/25 04:49 Temperature 97.5 F L 97.2 F L Pulse Rate 82 77 Respiratory Rate 16 16 Blood Pressure 112/86 121/46 L Pulse Oximetry 100 100 Oxygen Delivery Room Air 06/27/25 04:53 06/27/25 05:10 06/27/25 05:28 Temperature 98.5 F 98.4 F Pulse Rate 81 80 81 Respiratory Rate 20 20 Blood Pressure 110/34 L 106/38 L Pulse Oximetry 100 100 Oxygen Delivery 06/27/25 06:28 06/27/25 07:28 06/27/25 08:05 Temperature 98.1 F 98.2 F 98.6 F Pulse Rate 77 77 82 Respiratory Rate 20 18 18 Blood Pressure 111/47 L 112/38 L 94/67 L Pulse Oximetry 99 99 100 Oxygen Delivery Intake/Output Intake/Output: Intake & Output 06/24/25 06/25/25 06/26/25 06/27/25 23:59 23:59 23:59 23:59 Intake Total 1050 Output Total 300 Balance 750 Meds/Results Medications: Active Medications Generic Name Dose Route Start Last Admin Trade Name Freq PRN Reason Stop Dose Admin Acetaminophen 650 mg 06/27/25 01:12 Acetaminophen 325 Mg Tablet PO Q4H PRN Mild Pain (1-3) or Fever Hydromorphone HCl 0.5 mg 06/27/25 01:12 Hydromorphone Hcl Inj (*Crx) 1 Mg/Ml Syr IV PUSH Q4H PRN Pain Rated 7-10 Ceftriaxone Sodium 1 gm/ 50 mls @ 100 mls/hr 06/28/25 04:00 Sodium Chloride IVPB Q24H ELISA Ondansetron HCl 4 mg 06/27/25 01:12 Ondansetron Inj 4 Mg/2 Ml Vial IV PUSH Q4H PRN Nausea Radiology Results: ITS Impressions Chest X-Ray 06/26/25 18:12 IMPRESSION: 1. Abdomen/Pelvis CTA 06/27/25 06:48 IMPRESSION: 1. Mild pulmonary edema with small pleural effusions. 2. Cirrhosis of the liver. 3. Small volume of ascites. 4. Bladder mass suspicious for urothelial carcinoma. Hematoma in the bladder. 5. Wall thickening of the rectum, consistent with proctitis. Labs Labs: Laboratory Results - last 24 hr 06/26/25 06/26/25 06/26/25 20:35 23:14 23:15 WBC 7.5 RBC 1.91 L Hgb 3.1 L* D Hct 13.0 L* MCV 68.1 L MCH 16.2 L MCHC 23.8 L RDW 19.4 H Plt Count 121 L MPV 10.8 H Immature Gran % (Auto) 0.4 Neut % (Auto) 69.2 Lymph % (Auto) 23.0 [place] % (Auto) 7.1 Eos % (Auto) 0.3 Baso % (Auto) 0.0 L Lymph # (Auto) 1.72 [place] # (Auto) 0.5 Eos # (Auto) 0.0 Baso # (Auto) 0.0 Abs Immat Gran (auto) 0.03 Absolute Neuts (auto) 5.2 Absolute Nucleated RBC 0.040 H Band Neutrophils % Not Reportable Nucleated RBC % 0.5 H Platelet Estimate Decreased Hypochromasia 1+ Anisocytosis 2+ Microcytosis 1+ Ovalocytes 1+ Schistocytes None seen Absolute Retic 0.08 Percent Retic 4.48 H Immature Retic Fraction 29.7 H Retic Hgb Content 14.0 L PT 19.6 H INR 1.7 APTT 35.4 Sodium 135 L Potassium 4.1 Chloride 108 H Carbon Dioxide 23 Anion Gap 4 BUN 11 Creatinine 0.80 Estim Creat Clear Calc Not Reportable Estimated GFR > 60 Glucose 164 H Calcium 7.9 L Iron 22 L TIBC 400 % Saturation 6 L Ferritin 4.44 L Total Bilirubin 1.2 AST 20 ALT 14 Alkaline Phosphatase 79 Total Protein 5.9 L Albumin 2.8 L Vitamin B12 908.0 Folate 13.4 Urine Color Urine Appearance Urine pH Ur Specific [place] Urine Protein Urine Glucose (UA) Urine Ketones Ur Blood (Man) Urine Nitrate Urine Bilirubin Urine Urobilinogen Leukocyte Esterase Rfl Urine RBC Urine WBC Ur Squamous Epith Cells Urine Bacteria Blood Type O Positive Antibody Screen Negative Crossmatch See Detail 06/27/25 06/27/25 06/27/25 00:08 02:39 08:35 WBC RBC Hgb 4.7 L* 7.8 L D Hct 16.8 L* 26.0 L MCV MCH MCHC RDW Plt Count MPV Immature Gran % (Auto) Neut % (Auto) Lymph % (Auto) [place] % (Auto) Eos % (Auto) Baso % (Auto) Lymph # (Auto) [place] # (Auto) Eos # (Auto) Baso # (Auto) Abs Immat Gran (auto) Absolute Neuts (auto) Absolute Nucleated RBC Band Neutrophils % Nucleated RBC % Platelet Estimate Hypochromasia Anisocytosis Microcytosis Ovalocytes Schistocytes Absolute Retic Percent Retic Immature Retic Fraction Retic Hgb Content PT INR APTT Sodium Potassium Chloride Carbon Dioxide Anion Gap BUN Creatinine Estim Creat Clear Calc Estimated GFR Glucose Calcium Iron TIBC % Saturation Ferritin Total Bilirubin AST ALT Alkaline Phosphatase Total Protein Albumin Vitamin B12 Folate Urine Color Dark red H Urine Appearance Turbid H Urine pH 7.0 Ur Specific [place] 1.010 Urine Protein 3+ H Urine Glucose (UA) Negative Urine Ketones Negative Ur Blood (Man) 3+ H Urine Nitrate Negative Urine Bilirubin 1+ H Urine Urobilinogen 0.2 Leukocyte Esterase Rfl Trace H Urine RBC >100 H Urine WBC 4-6 H Ur Squamous Epith Cells Occasional Urine Bacteria 3+ H Blood Type Antibody Screen Crossmatch Quality VTE Prophylaxis VTE prophylaxis: mechanical ordered
[2025-06-27 14:59] LABS: Hematocrit 24.7 % (37.0-47.0); Hemoglobin 7.6 g/dL (12.0-15.0)
[2025-06-27 15:36] LABS: Hemoglobin A1C 6.3 % (<5.7)
[2025-06-27 20:09] LABS: Hematocrit 24.6 % (37.0-47.0); Hemoglobin 7.4 g/dL (12.0-15.0)
[2025-06-28] VITALS (11 sets, daily range): BP systolic 110–115; BP diastolic 41–43; PULSE 71–80; RESP 16–24; TEMP 36.4–36.9; O2SAT 95–100
[2025-06-28 00:21] LABS: Hematocrit 24.8 % (37.0-47.0); Hemoglobin 7.5 g/dL (12.0-15.0)
[2025-06-28] MEDS: cefTRIAXone 1 GM in SODIUM CHLORIDE 0.9% IV 50 ML 100 ML IVPB (03:00)
[2025-06-28 06:27] LABS: Hematocrit 25.4 % (37.0-47.0); Hemoglobin 7.5 g/dL (12.0-15.0); Immature Platelet Fraction Pct 6.1 % (0.9-11.2); Mean Corpuscular HGB Conc 29.5 g/dl (32-36); Mean Corpuscular Hemoglobin 23.8 pg (26-34); Mean Corpuscular Volume 80.6 fl (80-100); Platelet Count Result 75 k/mm3 (150-375); Red Blood Count 3.15 M/mm3 (4.2-5.4); White Blood Count 6.7 K/mm3 (4.5-10.0)
[2025-06-28 06:35] LABS: Anion Gap 7 mmol/L (4-12); Blood Urea Nitrogen 11 mg/dL (7-17); Calcium 7.7 mg/dL (8.4-10.2); Carbon Dioxide 21 mmol/L (22-30); Chloride 107 mmol/L (98-107); Estimated Glomerular Filt Rate 60; Glucose 140 mg/dL (65-110); Potassium 3.9 mmol/L (3.4-5.0); Sodium 135 mmol/L (137-145)
--- NOTE | 2025-06-28 11:19 | P.PNIM_ITS ---
Progress Note: A&P Assessment and Plan (1) Hematuria: Code(s): R31.9 - Hematuria, unspecified Status: Acute Assessment and Plan: -H&H every 6 hours . -patient is to get 3 units of packed red blood cells. -patient continues to urinate bright red blood. -vital signs are stable. -urology has been consulted. -CT of the abdomen is suspicious for bladder tumor. -continue with IV fluids as the patient will be NPO for possible procedure with Urology. -the patient has not been on any blood thinners. -daily complaint she had was dizziness but denies any shortness of breath or chest pain. EKG was within normal limits. -initially or H&H was 3.1 and 13.0 but is now 4.7 is 16.8. hg stable at 7.5 noted hematuria still urology following (2) Bladder mass: Code(s): N32.89 - Other specified disorders of bladder Status: Acute Assessment and Plan: -the patient is NPO for possible procedure with Urology. -urology has been consulted. (3) Obstructive sleep apnea: Code(s): G47.33 - Obstructive sleep apnea (adult) (pediatric) Status: Acute Assessment and Plan: -continue to all trait CPAP as per home settings. (4) Elevated blood sugar: Code(s): R73.9 - Hyperglycemia, unspecified Status: Acute Assessment and Plan: -the patient had an elevated blood sugar. Her blood sugar was noted to be 164. - A1c 6.3 on 06/27/25 Time Spent With Patient Time with patient: 25 - 35 minutes Subjective Date/time seen: 06/28/25 11:19 Interval history: This is a 74-year-old female patient who is a past medical history of having cervical cancer with radiation and chemotherapy. She was not able to have surgery due to the proximity of the cancer to the rectal area. The patient stated that she has been having some bleeding for over a month now. She stated she was not sure if it was coming from her rectum are her urinary tract. She stated when she urinates it is bright red blood. She stated that she has been feeling weak but is not short of breath. She denies any fever or chills. She denies any rectal bleeding.She does feel somewhat weak. She has had a prior colonoscopy and has had some polyps removed. The patient was at sugar she was bleeding from her vagina but she did notice bright red blood in the toilet when she urinated. She is not on any blood thinner. Her H&H was noted to be 3.1 and 13.2. Her reticular count was 4.48, articular hemoglobin 14.0, blood glucose 164, calcium 7.9, iron 22, O2 saturation 6 and ferritin 4.44. Her urine was dark red with 3+ protein 3+ blood. Trace leukocyte esterase, urine rbc's greater than 100, urine wbc's 46, and urine bacteria 3+. The patient was given Rocephin and Flagyl in the ER. She was started on IV fluids. For limited airy CT shows urinary bladder wall thickening with ventral wall 1.8 cm polypoid appear soft tissue-may reflect malignancy. Urology has been consulted. The patient is being admitted to observation status on the date of service of 06/27/2025. Pt is seen and examined. Urology is following. Today hg is stable at 7.5. NO acute events overnight. Review of Systems Constitutional: Constitutional: Reports as per HPI and Reports no additional constitutional complaints Eyes: Eyes: Reports as per HPI and Reports no additional eye complaints ENT: Reports system reviewed and no additional complaints, except as documented and Reports Normal hearing present Cardiovascular: Cardiovascular: Reports no additional cardiovascular complaints Respiratory: Respiratory: Reports as per HPI and Reports no additional respiratory complaints Gastrointestinal: Gastrointestinal: Reports as per HPI and Reports no additional gastrointestinal complaints Genitourinary: Genitourinary: Reports no additional female genitourinary complaints Musculoskeletal: Musculoskeletal: Reports no additional musculoskeletal complaints Integumentary/Breasts: Skin/Breast: Reports system reviewed and no additional complaints, except as docu Neurologic: Reports system reviewed and no additional complaints, except as documented and Reports Normal hearing present Psychiatric: Psychiatric: Reports no additional psychiatric complaints and Reports as per HPI Hematologic/Lymphatic: Hematologic/Lymphatic: Reports no additional hematologic/lymphatic complaints Allergic/Immunologic: Allergic/Immunologic: Reports no additional allergic/immunologic complaints Exam Narrative: The patient appears pale and ill Const: General: cooperative, comfortable, no acute distress, well developed, awake, Physically active, average body habitus and well nourished Nutritional Appearance: average body habitus and well nourished Orientation/consciousness: oriented to person, oriented to place, oriented to time and patient oriented x3 Limitations: no limitations HENMT: Head: normal to inspection, No palpable skull fracture present, normocephalic, atraumatic and abrasion Ears: hearing grossly normal bilaterally and external ears normal Eyes: General: appearance normal, both eyes and all related structures Alignment and Position: alignment normal Periorbital: periorbital findings normal Eyelids: eyelids normal Pupils: Equal, round and reactive pupils present Neck: Neck: normal visual inspection, full ROM and no lymphadenopathy Chest: Chest palpation & inspection: normal inspection of the chest Resp: Effort & Inspection: normal respiratory effort Auscultation: clear to auscultation bilaterally Percussion: percussion normal Cardio: Palpation: normal PMI Rate: regular rate Rhythm: regular rhythm Heart sounds: S1 normal heart sound present and S2 normal heart sound present Peripheral pulses: Peripheral pulses 2+ throughout GI: Inspection: normal to inspection Auscultation: normal bowel sounds Rectal Exam: deferred : General: Yes no CVA tenderness Back/Spine/Pelvis: Back: no CVA tenderness Skin: General skin exam: normal color Lesions: no lesions Rashes: no rashes Trauma: no lacerations or abrasions Wounds: no wounds Hair: normal Nails: normal Neuro: General: oriented to person, oriented to place, oriented to time and patient oriented x3 Cranial nerves: Yes Equal, round and reactive pupils pr esent and Yes Normal hearing present Cognition (Neuro): normal cognition Speech: normal speech Gait exam (Neuro): Normal gait present Motor exam (neuro): 5/5 motor strength present throughout Sensory Exam: normal sensation Extrem: General: normal to inspection Right upper extremity: normal to inspection and shoulder/upper arm Left upper extremity: normal to inspection and shoulder/upper arm Right lower extremity: normal to inspection Left lower extremity: normal to inspection Psych: Appearance: grossly normal Mental Status: mental status grossly normal Speech and movement: Normal speech and movement present Affect: normal affect Attitude: cooperative Thought process: Normal thought process present Insight: Good insight present (Psych) Judgement: Good judgement present (Psych) Objective Data Vital Signs Vital Signs: Vital Signs - 24 hr 06/27/25 11:23 06/27/25 12:00 06/27/25 14:43 Temperature 97.9 F 97.5 F L Pulse Rate 80 78 79 Respiratory Rate 18 18 Blood Pressure 123/45 L 129/43 L Pulse Oximetry 99 99 Oxygen Delivery 06/27/25 16:00 06/27/25 19:40 06/27/25 20:00 Temperature 98.0 F Pulse Rate 79 80 76 Respiratory Rate 20 Blood Pressure 118/35 L Pulse Oximetry 100 Oxygen Delivery 06/27/25 21:00 06/28/25 00:26 06/28/25 04:00 Temperature Pulse Rate 71 77 71 Respiratory Rate 21 H 23 H Blood Pressure Pulse Oximetry 97 98 Oxygen Delivery CPAP CPAP 06/28/25 04:44 06/28/25 08:30 06/28/25 08:30 Temperature 97.5 F L Pulse Rate 71 74 Respiratory Rate 20 Blood Pressure 113/43 L Pulse Oximetry 97 Oxygen Delivery Room Air 06/28/25 09:00 Temperature Pulse Rate Respiratory Rate Blood Pressure Pulse Oximetry 95 Oxygen Delivery Room Air Intake/Output Intake/Output: Intake & Output 06/25/25 06/26/25 06/27/25 06/28/25 23:59 23:59 23:59 23:59 Intake Total 1290 580 Output Total 1050 400 Balance 240 180 Meds/Results Medications: Active Medications Generic Name Dose Route Start Last Admin Trade Name Freq PRN Reason Stop Dose Admin Acetaminophen 650 mg 06/27/25 01:12 Acetaminophen 325 Mg Tablet PO Q4H PRN Mild Pain (1-3) or Fever Calcium Carbonate 200 mg 06/27/25 11:32 Calcium Carbonate (Tums) 500 Mg (200 Mg Elemental) PO Q6H PRN Indigestion Hydromorphone HCl 0.5 mg 06/27/25 01:12 Hydromorphone Hcl Inj (*Crx) 1 Mg/Ml Syr IV PUSH Q4H PRN Pain Rated 7-10 Ceftriaxone Sodium 1 gm/ 50 mls @ 100 mls/hr 06/28/25 04:00 06/28/25 03:00 Sodium Chloride IVPB 100 mls/hr Q24H ELISA Administration Ondansetron HCl 4 mg 06/27/25 01:12 Ondansetron Inj 4 Mg/2 Ml Vial IV PUSH Q4H PRN Nausea Radiology Results: ITS Impressions Chest X-Ray 06/26/25 18:12 IMPRESSION: 1. Abdomen/Pelvis CTA 06/27/25 06:48 IMPRESSION: 1. Mild pulmonary edema with small pleural effusions. 2. Cirrhosis of the liver. 3. Small volume of ascites. 4. Bladder mass suspicious for urothelial carcinoma. Hematoma in the bladder. 5. Wall thickening of the rectum, consistent with proctitis. Labs Labs: Laboratory Results - last 24 hr 06/26/25 06/27/25 06/27/25 23:14 08:30 14:55 WBC RBC Hgb 7.6 L Hct 24.7 L MCV MCH MCHC RDW Plt Count MPV % Immature Plt Fraction Haptoglobin 93 Sodium Potassium Chloride Carbon Dioxide Anion Gap BUN Creatinine Estim Creat Clear Calc Estimated GFR Glucose Hemoglobin A1c 6.3 H Calcium 06/27/25 06/28/25 06/28/25 20:04 00:13 06:10 WBC 6.7 RBC 3.15 L Hgb 7.4 L 7.5 L 7.5 L Hct 24.6 L 24.8 L 25.4 L MCV 80.6 D MCH 23.8 L D MCHC 29.5 L RDW 21.8 H Plt Count 75 L MPV 11.3 H % Immature Plt Fraction 6.1 Haptoglobin Sodium 135 L Potassium 3.9 Chloride 107 Carbon Dioxide 21 L Anion Gap 7 BUN 11 Creatinine 0.91 Estim Creat Clear Calc Not Reportable Estimated GFR 60 Glucose 140 H Hemoglobin A1c Calcium 7.7 L Quality VTE Prophylaxis VTE prophylaxis: mechanical ordered
[2025-06-29] VITALS (15 sets, daily range): BP systolic 100–123; BP diastolic 35–83; PULSE 60–82; RESP 14–21; TEMP 36.6–37.4; O2SAT 94–100
[2025-06-29] MEDS: cefTRIAXone 1 GM in SODIUM CHLORIDE 0.9% IV 50 ML 100 ML IVPB (04:39)
[2025-06-29 04:56] LABS: Hematocrit 22.6 % (37.0-47.0); Immature Platelet Fraction Pct 6.1 % (0.9-11.2); Mean Corpuscular HGB Conc 29.6 g/dl (32-36); Mean Corpuscular Hemoglobin 24.6 pg (26-34); Mean Corpuscular Volume 83.1 fl (80-100); Platelet Count Result 55 k/mm3 (150-375); Red Blood Count 2.72 M/mm3 (4.2-5.4); White Blood Count 5.6 K/mm3 (4.5-10.0)
[2025-06-29 05:06] LABS: Hemoglobin 6.7 g/dL (12.0-15.0)
[2025-06-29 05:13] LABS: Anion Gap 6 mmol/L (4-12); Blood Urea Nitrogen 12 mg/dL (7-17); Calcium 7.5 mg/dL (8.4-10.2); Carbon Dioxide 21 mmol/L (22-30); Chloride 107 mmol/L (98-107); Estimated Glomerular Filt Rate > 60; Glucose 130 mg/dL (65-110); Potassium 3.8 mmol/L (3.4-5.0); Sodium 134 mmol/L (137-145)
--- NOTE | 2025-06-29 10:12 | P.PNIM_ITS ---
Progress Note: A&P Assessment and Plan (1) Hematuria: Code(s): R31.9 - Hematuria, unspecified Status: Acute Assessment and Plan: -H&H every 6 hours . -patient is to get 3 units of packed red blood cells. -patient continues to urinate bright red blood. -vital signs are stable. -urology has been consulted. -CT of the abdomen is suspicious for bladder tumor. -continue with IV fluids as the patient will be NPO for possible procedure with Urology. -the patient has not been on any blood thinners. -daily complaint she had was dizziness but denies any shortness of breath or chest pain. EKG was within normal limits. -initially or H&H was 3.1 and 13.0 but is now 4.7 is 16.8. hg stable at 7.5 noted hematuria still urology following --------- 06/29 hg dropped to 6.7- given 1 unit of PRBC, recheck is ordered per protocol monitor closely continues to have hematuria (2) Bladder mass: Code(s): N32.89 - Other specified disorders of bladder Status: Acute Assessment and Plan: -the patient is NPO for possible procedure with Urology. -urology has been consulted. (3) Obstructive sleep apnea: Code(s): G47.33 - Obstructive sleep apnea (adult) (pediatric) Status: Acute Assessment and Plan: -continue to all trait CPAP as per home settings. (4) Elevated blood sugar: Code(s): R73.9 - Hyperglycemia, unspecified Status: Acute Assessment and Plan: -the patient had an elevated blood sugar. Her blood sugar was noted to be 164. - A1c 6.3 on 06/27/25 Time Spent With Patient Time with patient: 25 - 35 minutes Subjective Date/time seen: 06/29/25 10:12 Interval history: This is a 74-year-old female patient who is a past medical history of having cervical cancer with radiation and chemotherapy. She was not able to have surgery due to the proximity of the cancer to the rectal area. The patient stated that she has been having some bleeding for over a month now. She stated she was not sure if it was coming from her rectum are her urinary tract. She stated when she urinates it is bright red blood. She stated that she has been feeling weak but is not short of breath. She denies any fever or chills. She denies any rectal bleeding.She does feel somewhat weak. She has had a prior colonoscopy and has had some polyps removed. The patient was at sugar she was bleeding from her vagina but she did notice bright red blood in the toilet when she urinated. She is not on any blood thinner. Her H&H was noted to be 3.1 and 13.2. Her reticular count was 4.48, articular hemoglobin 14.0, blood glucose 164, calcium 7.9, iron 22, O2 saturation 6 and ferritin 4.44. Her urine was dark red with 3+ protein 3+ blood. Trace leukocyte esterase, urine rbc's greater than 100, urine wbc's 46, and urine bacteria 3+. The patient was given Rocephin and Flagyl in the ER. She was started on IV fluids. For limited airy CT shows urinary bladder wall thickening with ventral wall 1.8 cm polypoid appear soft tissue-may reflect malignancy. Urology has been consulted. The patient is being admitted to observation status on the date of service of 06/27/2025. Pt is seen and examined. Urology is following. Today hg is stable at 7.5. NO acute events overnight. 06/29- hg dropped to 6.7 this am. 1 unit of PRBC ordered and given. Urology following. Review of Systems 2 Constitutional: Constitutional: Reports as per HPI and Reports no additional constitutional complaints Eyes: Eyes: Reports as per HPI and Reports no additional eye complaints ENT: Reports system reviewed and no additional complaints, except as documented and Reports Normal hearing present Cardiovascular: Cardiovascular: Reports no additional cardiovascular complaints Respiratory: Respiratory: Reports as per HPI and Reports no additional respiratory complaints Gastrointestinal: Gastrointestinal: Reports as per HPI and Reports no additional gastrointestinal complaints Genitourinary: Genitourinary: Reports no additional female genitourinary c omplaints Musculoskeletal: Musculoskeletal: Reports no additional musculoskeletal complaints Integumentary/Breasts: Skin/Breast: Reports system reviewed and no additional complaints, except as docu Neurologic: Reports system reviewed and no additional complaints, except as documented and Reports Normal hearing present Psychiatric: Psychiatric: Reports no additional psychiatric complaints and Reports as per HPI Hematologic/Lymphatic: Hematologic/Lymphatic: Reports no additional hematologic/lymphatic complaints Allergic/Immunologic: Allergic/Immunologic: Reports no additional allergic/immunologic complaints Exam Narrative: The patient appears pale and ill Const: General: cooperative, comfortable, no acute distress, well developed, awake, Physically active, average body habitus and well nourished Nutritional Appearance: average body habitus and well nourished Orientation/consciousness: oriented to person, oriented to place, oriented to time and patient oriented x3 HENMT: Head: normal to inspection, No palpable skull fracture present, normocephalic and atraumatic Ears: hearing grossly normal bilaterally and external ears normal Eyes: General: appearance normal, both eyes and all related structures Alignment and Position: alignment normal Pupils: Equal, round and reactive pupils present Neck: Neck: normal visual inspection, full ROM and no lymphadenopathy Chest: Chest palpation & inspection: normal inspection of the chest Resp: Effort & Inspection: normal respiratory effort Auscultation: clear to auscultation bilaterally Percussion: percussion normal Cardio: Palpation: normal PMI Rate: regular rate Rhythm: regular rhythm Heart sounds: S1 normal heart sound present and S2 normal heart sound present Peripheral pulses: Peripheral pulses 2+ throughout GI: Inspection: normal to inspection Auscultation: normal bowel sounds Rectal Exam: deferred : General: Yes no CVA tenderness Urinary Catheter: Urinary Catheter: urine red Back/Spine/Pelvis: Back: no CVA tenderness Skin: General skin exam: normal color Lesions: no lesions Rashes: no rashes Wounds: no wounds Hair: normal Nails: normal Neuro: General: oriented to person, oriented to place, oriented to time and patient oriented x3 Cranial nerves: Yes Equal, round and reactive pupils present and Yes Normal hearing present Cognition (Neuro): normal cognition Speech: normal speech Gait exam (Neuro): Normal gait present Motor exam (neuro): 5/5 motor strength present throughout Sensory Exam: normal sensation Extrem: General: normal to inspection Right upper extremity: normal to inspection and shoulder/upper arm Left upper extremity: normal to inspection and shoulder/upper arm Right lower extremity: normal to inspection Left lower extremity: normal to inspection Psych: Appearance: grossly normal Mental Status: mental status grossly normal Speech and movement: Normal speech and movement present Affect: normal affect Attitude: cooperative Thought process: Normal thought process present Insight: Good insight present (Psych) Judgement: Good judgement present (Psych) Objective Data Vital Signs Vital Signs: Vital Signs - 24 hr 06/28/25 12:00 06/28/25 14:00 06/28/25 16:00 Temperature 98.4 F Pulse Rate 73 71 72 Respiratory Rate 18 Blood Pressure 115/41 L Pulse Oximetry 100 Oxygen Delivery 06/28/25 20:00 06/28/25 20:00 06/28/25 22:29 Temperature 97.6 F Pulse Rate 80 80 77 Respiratory Rate 18 16 Blood Pressure 110/41 L Pulse Oximetry 100 99 Oxygen Delivery Room Air 06/28/25 22:39 06/29/25 00:00 06/29/25 02:20 Temperature Pulse Rate 71 80 Respiratory Rate 24 H 21 H Blood Pressure Pulse Oximetry 97 Oxygen Delivery Autopap Autopap 06/29/25 04:00 06/29/25 06:01 06/29/25 06:06 Temperature 98.4 F 98.4 F Pulse Rate 68 71 72 Respiratory Rate 16 16 Blood Pressure 100/42 L 100/42 L Pulse Oximetry 97 97 Oxygen Delivery 06/29/25 06:25 06/29/25 07:25 06/29/25 08:25 Temperature 98.6 F 98.6 F 98.7 F Pulse Rate 77 64 60 Respiratory Rate 16 14 16 Blood Pressure 117/39 L 102/38 L 114/83 Pulse Oximetry 100 95 99 Oxygen Delivery 06/29/25 08:35 06/29/25 08:35 Temperature Pulse Rate 60 82 Respiratory Rate 16 Blood Pressure Pulse Oximetry 99 Oxygen Delivery Room Air Intake/Output Intake/Output: Intake & Output 06/26/25 06/27/25 06/28/25 06/29/25 23:59 23:59 23:59 23:59 Intake Total 1290 1350 1000 Output Total 1050 1075 900 Balance 240 275 100 Meds/Results Medications: Active Medications Generic Name Dose Route Start Last Admin Trade Name Freq PRN Reason Stop Dose Admin Acetaminophen 650 mg 06/27/25 01:12 Acetaminophen 325 Mg Tablet PO Q4H PRN Mild Pain (1-3) or Fever Calcium Carbonate 200 mg 06/27/25 11:32 Calcium Carbonate (Tums) 500 Mg (200 Mg Elemental) PO Q6H PRN Indigestion Hydromorphone HCl 0.5 mg 06/27/25 01:12 Hydromorphone Hcl Inj (*Crx) 1 Mg/Ml Syr IV PUSH Q4H PRN Pain Rated 7-10 Ceftriaxone Sodium 1 gm/ 50 mls @ 100 mls/hr 06/28/25 04:00 06/29/25 05:09 Sodium Chloride IVPB Infused Q24H ELISA Infusion Sodium Chloride 250 mls @ 30 mls/hr 06/29/25 05:05 Normal Saline Iv IV CONT 06/29/25 13:24 .[id number] STA Ondansetron HCl 4 mg 06/27/25 01:12 Ondansetron Inj 4 Mg/2 Ml Vial IV PUSH Q4H PRN Nausea Radiology Results: ITS Impressions Chest X-Ray 06/26/25 18:12 IMPRESSION: 1. Abdomen/Pelvis CTA 06/27/25 06:48 IMPRESSION: 1. Mild pulmonary edema with small pleural effusions. 2. Cirrhosis of the liver. 3. Small volume of ascites. 4. Bladder mass suspicious for urothelial carcinoma. Hematoma in the bladder. 5. Wall thickening of the rectum, consistent with proctitis. Labs Labs: Laboratory Results - last 24 hr 06/26/25 06/29/25 23:14 04:45 WBC 5.6 RBC 2.72 L Hgb 6.7 L* Hct 22.6 L MCV 83.1 MCH 24.6 L MCHC 29.6 L RDW 23.0 H Plt Count 55 L MPV 11.7 H % Immature Plt Fraction 6.1 Sodium 134 L Potassium 3.8 Chloride 107 Carbon Dioxide 21 L Anion Gap 6 BUN 12 Creatinine 0.84 Estim Creat Clear Calc Not Reportable Estimated GFR > 60 Glucose 130 H Calcium 7.5 L Blood Type O Positive Antibody Screen Negative Crossmatch See Detail Quality VTE Prophylaxis VTE prophylaxis: mechanical ordered
[2025-06-29 10:33] LABS: Hematocrit 27.1 % (37.0-47.0); Hemoglobin 8.4 g/dL (12.0-15.0)
[2025-06-30] VITALS (11 sets, daily range): BP systolic 111–137; BP diastolic 44–46; PULSE 63–80; RESP 16–22; TEMP 36.8–37.3; O2SAT 96–99
[2025-06-30] MEDS: cefTRIAXone 1 GM in SODIUM CHLORIDE 0.9% IV 50 ML 100 ML IVPB (05:00)
[2025-06-30 05:30] LABS: Hematocrit 27.8 % (37.0-47.0); Hemoglobin 8.3 g/dL (12.0-15.0); Immature Platelet Fraction Pct 7.1 % (0.9-11.2); Mean Corpuscular HGB Conc 29.9 g/dl (32-36); Mean Corpuscular Hemoglobin 25.0 pg (26-34); Mean Corpuscular Volume 83.7 fl (80-100); Platelet Count Result 63 k/mm3 (150-375); Red Blood Count 3.32 M/mm3 (4.2-5.4); White Blood Count 6.0 K/mm3 (4.5-10.0)
[2025-06-30 05:53] LABS: Anion Gap 1 mmol/L (4-12); Blood Urea Nitrogen 13 mg/dL (7-17); Calcium 7.6 mg/dL (8.4-10.2); Carbon Dioxide 25 mmol/L (22-30); Chloride 109 mmol/L (98-107); Estimated Glomerular Filt Rate > 60; Glucose 128 mg/dL (65-110); Potassium 3.8 mmol/L (3.4-5.0); Sodium 135 mmol/L (137-145)
--- NOTE | 2025-06-30 08:56 | P.PNIM_ITS ---
Progress Note: A&P Assessment and Plan (1) Hematuria: Code(s): R31.9 - Hematuria, unspecified Status: Acute Assessment and Plan: -H&H every 6 hours . -patient is to get 3 units of packed red blood cells. -patient continues to urinate bright red blood. -vital signs are stable. -urology has been consulted. -CT of the abdomen is suspicious for bladder tumor. -continue with IV fluids as the patient will be NPO for possible procedure with Urology. -the patient has not been on any blood thinners. -daily complaint she had was dizziness but denies any shortness of breath or chest pain. EKG was within normal limits. -initially or H&H was 3.1 and 13.0 but is now 4.7 is 16.8. hg stable at 7.5 noted hematuria still urology following --------- 06/29 hg dropped to 6.7- given 1 unit of PRBC, recheck is ordered per protocol monitor closely continues to have hematuria 06/30 hg 8.3/27.8- stable Plan for cysto, TURBT with Dr. Escoto tomorrow (2) Bladder mass: Code(s): N32.89 - Other specified disorders of bladder Status: Acute Assessment and Plan: -the patient is NPO for possible procedure with Urology. -urology has been consulted. see plan above (3) Obstructive sleep apnea: Code(s): G47.33 - Obstructive sleep apnea (adult) (pediatric) Status: Acute Assessment and Plan: -continue to all trait CPAP as per home settings. (4) Elevated blood sugar: Code(s): R73.9 - Hyperglycemia, unspecified Status: Acute Assessment and Plan: -the patient had an elevated blood sugar. Her blood sugar was noted to be 164. - A1c 6.3 on 06/27/25 Time Spent With Patient Time with patient: 25 - 35 minutes Subjective Date/time seen: 06/30/25 08:56 Interval history: This is a 74-year-old female patient who is a past medical history of having cervical cancer with radiation and chemotherapy. She was not able to have surgery due to the proximity of the cancer to the rectal area. The patient stated that she has been having some bleeding for over a month now. She stated she was not sure if it was coming from her rectum are her urinary tract. She stated when she urinates it is bright red blood. She stated that she has been feeling weak but is not short of breath. She denies any fever or chills. She denies any rectal bleeding.She does feel somewhat weak. She has had a prior colonoscopy and has had some polyps removed. The patient was at sugar she was bleeding from her vagina but she did notice bright red blood in the toilet when she urinated. She is not on any blood thinner. Her H&H was noted to be 3.1 and 13.2. Her reticular count was 4.48, articular hemoglobin 14.0, blood glucose 164, calcium 7.9, iron 22, O2 saturation 6 and ferritin 4.44. Her urine was dark red with 3+ protein 3+ blood. Trace leukocyte esterase, urine rbc's greater than 100, urine wbc's 46, and urine bacteria 3+. The patient was given Rocephin and Flagyl in the ER. She was started on IV fluids. For limited airy CT shows urinary bladder wall thickening with ventral wall 1.8 cm polypoid appear soft tissue-may reflect malignancy. Urology has been consulted. The patient is being admitted to observation status on the date of service of 06/27/2025. Pt is seen and examined. Urology is following. Today hg is stable at 7.5. NO acute events overnight. 06/29- hg dropped to 6.7 this am. 1 unit of PRBC ordered and given. Urology following. 06/30- pt is seen and examined. Mitchell in place. Plan for cysto, TURBT with Dr. Escoto tomorrow Review of Systems Constitutional: Constitutional: Reports as per HPI Eyes: Eyes: Reports as per HPI ENT: Reports system reviewed and no additional complaints, except as documented Cardiovascular: Cardiovascular: Reports no additional cardiovascular complaints Respiratory: Respiratory: Reports as per HPI and Reports no additional respiratory complaints Gastrointestinal: Gastrointestinal: Reports as per HPI and Reports no additional gastrointestinal complaints Genitourinary: Genitourinary: Reports no additional female genitourinary complaints Musculoskeletal: Musculoskeletal: Reports no additional musculoskeletal com plaints Integumentary/Breasts: Skin/Breast: Reports system reviewed and no additional complaints, except as docu Neurologic: Reports system reviewed and no additional complaints, except as documented and Reports Normal hearing present Psychiatric: Psychiatric: Reports no additional psychiatric complaints and Reports as per HPI Hematologic/Lymphatic: Hematologic/Lymphatic: Reports no additional hematologic/lymphatic complaints Allergic/Immunologic: Allergic/Immunologic: Reports no additional allergic/immunologic complaints Exam Narrative: The patient appears pale and ill Const: General: cooperative, comfortable, no acute distress, well developed, awake, Physically active, average body habitus and well nourished Nutritional Appearance: average body habitus and well nourished Orientation/consciousness: oriented to person, oriented to place, oriented to time and patient oriented x3 Limitations: no limitations HENMT: Head: normal to inspection, No palpable skull fracture present, normocephalic, atraumatic and abrasion Ears: hearing grossly normal bilaterally and external ears normal Eyes: General: appearance normal, both eyes and all related structures Alignment and Position: alignment normal Periorbital: periorbital findings normal Eyelids: eyelids normal Pupils: Equal, round and reactive pupils present Neck: Neck: normal visual inspection, full ROM and no lymphadenopathy Chest: Chest palpation & inspection: normal inspection of the chest Resp: Effort & Inspection: normal respiratory effort Auscultation: clear to auscultation bilaterally Percussion: percussion normal Cardio: Palpation: normal PMI Rate: regular rate Rhythm: regular rhythm Heart sounds: S1 normal heart sound present and S2 normal heart sound present Peripheral pulses: Peripheral pulses 2+ throughout GI: Inspection: normal to inspection Auscultation: normal bowel sounds Rectal Exam: deferred : General: Yes no CVA tenderness Urinary Catheter: Urinary Catheter: urine red Back/Spine/Pelvis: Back: no CVA tenderness Skin: General skin exam: normal color Lesions: no lesions Rashes: no rashes Trauma: no lacerations or abrasions Wounds: no wounds Hair: normal Nails: normal Neuro: General: oriented to person, oriented to place, oriented to time and patient oriented x3 Cranial nerves: Yes Equal, round and reactive pupils present and Yes Normal hearing present Cognition (Neuro): normal cognition Speech: normal speech Gait exam (Neuro): Normal gait present Motor exam (neuro): 5/5 motor strength present throughout Sensory Exam: normal sensation Extrem: General: normal to inspection Right upper extremity: normal to inspection and shoulder/upper arm Left upper extremity: normal to inspection and shoulder/upper arm Right lower extremity: normal to inspection Left lower extremity: normal to inspection Psych: Appearance: grossly normal Mental Status: mental status grossly normal Speech and movement: Normal speech and movement present Affect: normal affect Attitude: cooperative Thought process: Normal thought process present Insight: Good insight present (Psych) Judgement: Good judgement present (Psych) Objective Data Vital Signs Vital Signs: Vital Signs - 24 hr 06/29/25 12:00 06/29/25 13:53 06/29/25 16:00 Temperature 97.9 F Pulse Rate 76 71 67 Respiratory Rate 18 Blood Pressure 116/43 L Pulse Oximetry 100 Oxygen Delivery 06/29/25 20:00 06/29/25 20:00 06/29/25 21:23 Temperature 99.4 F Pulse Rate 69 71 Respiratory Rate 18 Blood Pressure 123/35 L Pulse Oximetry 94 Oxygen Delivery Room Air 06/29/25 21:35 06/30/25 00:00 06/30/25 04:00 Temperature Pulse Rate 69 63 Respiratory Rate 20 Blood Pressure Pulse Oximetry Oxygen Delivery CPAP 06/30/25 06:00 Temperature 98.7 F Pulse Rate 68 Respiratory Rate 18 Blood Pressure 113/44 L Pulse Oximetry 97 Oxygen Delivery Intake/Output Intake/Output: Intake & Output 06/27/25 06/28/25 06/29/25 06/30/25 23:59 23:59 23:59 23:59 Intake Total 1290 1350 1780 50 Output Total 1050 1075 1550 500 Balance 240 275 230 -450 Meds/Results Medications: Active Medications Generic Name Dose Route Start Last Admin Trade Name Freq PRN Reason Stop Dose Admin Acetaminophen 650 mg 06/27/25 01:12 Acetaminophen 325 Mg Tablet PO Q4H PRN Mild Pain (1-3) or Fever Calcium Carbonate 200 mg 06/27/25 11:32 Calcium Carbonate (Tums) 500 Mg (200 Mg Elemental) PO Q6H PRN Indigestion Sodium Chloride 23.7 ml/ 0 ml 07/01/25 06:00 Gemcitabine HCl 1,000 mg BLADDER 07/01/25 06:01 ONCE ONE Sodium Chloride 23.7 ml/ 0 ml 07/01/25 06:00 Gemcitabine HCl 1,000 mg BLADDER 07/01/25 06:01 ONCE ONE Hydromorphone HCl 0.5 mg 06/27/25 01:12 Hydromorphone Hcl Inj (*Crx) 1 Mg/Ml Syr IV PUSH Q4H PRN Pain Rated 7-10 Ceftriaxone Sodium 1 gm/ 50 mls @ 100 mls/hr 06/28/25 04:00 06/30/25 05:30 Sodium Chloride IVPB Infused Q24H ELISA Infusion Ondansetron HCl 4 mg 06/27/25 01:12 Ondansetron Inj 4 Mg/2 Ml Vial IV PUSH Q4H PRN Nausea Radiology Results: ITS Impressions Chest X-Ray 06/26/25 18:12 IMPRESSION: 1. Abdomen/Pelvis CTA 06/27/25 06:48 IMPRESSION: 1. Mild pulmonary edema with small pleural effusions. 2. Cirrhosis of the liver. 3. Small volume of ascites. 4. Bladder mass suspicious for urothelial carcinoma. Hematoma in the bladder. 5. Wall thickening of the rectum, consistent with proctitis. Labs Labs: Laboratory Results - last 24 hr 06/26/25 06/29/25 06/29/25 23:14 10:27 20:03 WBC RBC Hgb 8.4 L Hct 27.1 L MCV MCH MCHC RDW Plt Count MPV % Immature Plt Fraction Sodium Potassium Chloride Carbon Dioxide Anion Gap BUN Creatinine Estim Creat Clear Calc Estimated GFR Glucose POC Capillary Glucose 182 H Calcium Crossmatch See Detail 06/30/25 05:04 WBC 6.0 RBC 3.32 L Hgb 8.3 L Hct 27.8 L MCV 83.7 MCH 25.0 L MCHC 29.9 L RDW 22.3 H Plt Count 63 L MPV 11.5 H % Immature Plt Fraction 7.1 Sodium 135 L Potassium 3.8 Chloride 109 H Carbon Dioxide 25 Anion Gap 1 L BUN 13 Creatinine 0.83 Estim Creat Clear Calc Not Reportable Estimated GFR > 60 Glucose 128 H POC Capillary Glucose Calcium 7.6 L Crossmatch Quality VTE Prophylaxis VTE prophylaxis: mechanical ordered
--- NOTE | 2025-06-30 09:37 | WPDUROPN2 ---
Progress Note: A&P Assessment and Plan (1) Gross hematuria: Code(s): R31.0 - Gross hematuria Status: Acute Assessment and Plan: - Likely 2/[address], plan for OR as below - Maintain Mitchell catheter for urinary diversion - Defer to primary for transfusions as indicated; this AM hgb at 8.3 (2) Bladder mass: Code(s): N32.89 - Other specified disorders of bladder Status: Acute Assessment and Plan: - Plan for cysto, TURBT with Dr. Escoto tomorrow - Pt NPO after midnight (3) Urinary tract infection: Qualifiers: Hematuria presence: with hematuria Urinary tract infection type: acute cystitis Qualified Code(s): N30.01 - Acute cystitis with hematuria Code(s): N39.0 - Urinary tract infection, site not specified Status: Inactive Assessment and Plan: - UCx growing E. Coli - Continue culture driven Abx Subjective Subjective Date/Time Seen: 06/30/25 09:37 Interval history: NAEO. Pt resting comfortably in bed. Dark red, cloudy urine in Mitchell bag. Exam Narrative: Patient is awake and alert. She has in no acute distress. Her breathing is unlabored. She has a Mitchell catheter in place with red /cloudy urine Objective Data Vital Signs Vital Signs: Vital Signs - 24 hr 06/29/25 12:00 06/29/25 13:53 06/29/25 16:00 Temperature 36.6 C Pulse Rate 76 71 67 Respiratory Rate 18 Blood Pressure 116/43 L Pulse Oximetry 100 Oxygen Delivery 06/29/25 20:00 06/29/25 20:00 06/29/25 21:23 Temperature 37.4 C Pulse Rate 69 71 Respiratory Rate 18 Blood Pressure 123/35 L Pulse Oximetry 94 Oxygen Delivery Room Air 06/29/25 21:35 06/30/25 00:00 06/30/25 04:00 Temperature Pulse Rate 69 63 Respiratory Rate 20 Blood Pressure Pulse Oximetry Oxygen Delivery CPAP 06/30/25 06:00 Temperature 37.1 C Pulse Rate 68 Respiratory Rate 18 Blood Pressure 113/44 L Pulse Oximetry 97 Oxygen Delivery Intake/Output Intake/Output: Intake & Output 06/27/25 06/28/25 06/29/25 06/30/25 23:59 23:59 23:59 23:59 Intake Total 1290 1350 1780 290 Output Total 1050 1075 1550 500 Balance 240 275 230 -210 Meds/Results Medications: Active Medications Generic Name Dose Route Start Last Admin Trade Name Sylvia PRN Reason Stop Dose Admin Acetaminophen 650 mg 06/27/25 01:12 Acetaminophen 325 Mg Tablet PO Q4H PRN Mild Pain (1-3) or Fever Calcium Carbonate 200 mg 06/27/25 11:32 Calcium Carbonate (Tums) 500 Mg (200 Mg Elemental) PO Q6H PRN Indigestion Sodium Chloride 23.7 ml/ 0 ml 07/01/25 06:00 Gemcitabine HCl 1,000 mg BLADDER 07/01/25 06:01 ONCE ONE Sodium Chloride 23.7 ml/ 0 ml 07/01/25 06:00 Gemcitabine HCl 1,000 mg BLADDER 07/01/25 06:01 ONCE ONE Hydromorphone HCl 0.5 mg 06/27/25 01:12 Hydromorphone Hcl Inj (*Crx) 1 Mg/Ml Syr IV PUSH Q4H PRN Pain Rated 7-10 Ceftriaxone Sodium 1 gm/ 50 mls @ 100 mls/hr 06/28/25 04:00 06/30/25 05:30 Sodium Chloride IVPB Infused Q24H ELISA Infusion Ondansetron HCl 4 mg 06/27/25 01:12 Ondansetron Inj 4 Mg/2 Ml Vial IV PUSH Q4H PRN Nausea Radiology Results: ITS Impressions Chest X-Ray 06/26/25 18:12 IMPRESSION: 1. Abdomen/Pelvis CTA 06/27/25 06:48 IMPRESSION: 1. Mild pulmonary edema with small pleural effusions. 2. Cirrhosis of the liver. 3. Small volume of ascites. 4. Bladder mass suspicious for urothelial carcinoma. Hematoma in the bladder. 5. Wall thickening of the rectum, consistent with proctitis. Labs Labs: Laboratory Results - last 24 hr 06/26/25 06/29/25 06/29/25 23:14 10:27 20:03 WBC RBC Hgb 8.4 L Hct 27.1 L MCV MCH MCHC RDW Plt Count MPV % Immature Plt Fraction Sodium Potassium Chloride Carbon Dioxide Anion Gap BUN Creatinine Estim Creat Clear Calc Estimated GFR Glucose POC Capillary Glucose 182 H Calcium Crossmatch See Detail 06/30/25 05:04 WBC 6.0 RBC 3.32 L Hgb 8.3 L Hct 27.8 L MCV 83.7 MCH 25.0 L MCHC 29.9 L RDW 22.3 H Plt Count 63 L MPV 11.5 H % Immature Plt Fraction 7.1 Sodium 135 L Potassium 3.8 Chloride 109 H Carbon Dioxide 25 Anion Gap 1 L BUN 13 Creatinine 0.83 Estim Creat Clear Calc Not Reportable Estimated GFR > 60 Glucose 128 H POC Capillary Glucose Calcium 7.6 L Crossmatch
[2025-06-30] MEDS: DOCUSATE SODIUM 100 MG CAPSULE PO (12:05)
[2025-07-01] VITALS (20 sets, daily range): BP systolic 108–152; BP diastolic 39–120; PULSE 52–80; RESP 14–24; TEMP 36.1–36.6; O2SAT 99–100
[2025-07-01] MEDS: cefTRIAXone 1 GM in SODIUM CHLORIDE 0.9% IV 50 ML 100 ML IVPB (04:47)
[2025-07-01 05:31] LABS: Hematocrit 27.0 % (37.0-47.0); Hemoglobin 8.0 g/dL (12.0-15.0); Immature Platelet Fraction Pct 5.3 % (0.9-11.2); Mean Corpuscular HGB Conc 29.6 g/dl (32-36); Mean Corpuscular Hemoglobin 25.2 pg (26-34); Mean Corpuscular Volume 84.9 fl (80-100); Platelet Count Result 63 k/mm3 (150-375); Red Blood Count 3.18 M/mm3 (4.2-5.4); White Blood Count 5.7 K/mm3 (4.5-10.0)
[2025-07-01 05:48] LABS: Anion Gap 2 mmol/L (4-12); Blood Urea Nitrogen 14 mg/dL (7-17); Calcium 7.7 mg/dL (8.4-10.2); Carbon Dioxide 23 mmol/L (22-30); Chloride 109 mmol/L (98-107); Estimated Glomerular Filt Rate > 60; Glucose 115 mg/dL (65-110); Potassium 3.9 mmol/L (3.4-5.0); Sodium 134 mmol/L (137-145)
--- NOTE | 2025-07-01 09:19 | WPDUROPN2 ---
Progress Note: A&P Assessment and Plan (1) Gross hematuria: Code(s): R31.0 - Gross hematuria Status: Acute Assessment and Plan: - Likely 2/[address], plan for OR as below - Maintain Mitchell catheter for urinary diversion - Defer to primary for transfusions as indicated; this AM hgb at 8.0 (2) Bladder mass: Code(s): N32.89 - Other specified disorders of bladder Status: Acute Assessment and Plan: - OR today for cysto, TURBT with Dr. Escoto (3) Urinary tract infection: Qualifiers: Hematuria presence: with hematuria Urinary tract infection type: acute cystitis Qualified Code(s): N30.01 - Acute cystitis with hematuria Code(s): N39.0 - Urinary tract infection, site not specified Status: Inactive Assessment and Plan: - UCx growing E. Coli - Continue culture driven Abx Subjective Subjective Date/Time Seen: 07/01/25 09:19 Interval history: NAEO; pt resting comfortably in bed. Dark red urine output from Mitchell. Exam Narrative: Patient is awake and alert. She has in no acute distress. Her breathing is unlabored. She has a Mitchell catheter in place with red /cloudy urine Objective Data Vital Signs Vital Signs: Vital Signs - 24 hr 06/30/25 10:40 06/30/25 12:00 06/30/25 14:00 Temperature 36.8 C Pulse Rate 76 66 Respiratory Rate 16 Blood Pressure 111/46 L Pulse Oximetry 99 99 Oxygen Delivery Room Air 06/30/25 16:00 06/30/25 20:00 06/30/25 20:00 Temperature Pulse Rate 73 80 Respiratory Rate Blood Pressure Pulse Oximetry Oxygen Delivery Room Air 06/30/25 21:11 06/30/25 23:00 07/01/25 00:00 Temperature 37.3 C Pulse Rate 73 72 63 Respiratory Rate 18 22 H Blood Pressure 137/44 L Pulse Oximetry 99 96 Oxygen Delivery CPAP 07/01/25 02:17 07/01/25 04:00 07/01/25 06:00 Temperature 36.5 C Pulse Rate 70 56 L 66 Respiratory Rate 24 H 18 Blood Pressure 111/42 L Pulse Oximetry 99 Oxygen Delivery CPAP Intake/Output Intake/Output: Intake & Output 06/28/25 06/29/25 06/30/25 07/01/25 23:59 23:59 23:59 23:59 Intake Total 1350 1780 1370 400 Output Total 1075 1550 1150 1700 Balance 275 230 220 -1300 Meds/Results Medications: Active Medications Generic Name Dose Route Start Last Admin Trade Name Freq PRN Reason Stop Dose Admin Acetaminophen 650 mg 06/27/25 01:12 Acetaminophen 325 Mg Tablet PO Q4H PRN Mild Pain (1-3) or Fever Calcium Carbonate 200 mg 06/27/25 11:32 Calcium Carbonate (Tums) 500 Mg (200 Mg Elemental) PO Q6H PRN Indigestion Docusate Sodium 100 mg 06/30/25 10:49 06/30/25 12:05 Docusate Sodium 100 Mg Capsule PO 100 mg Q12H PRN Administration Constipation Hydromorphone HCl 0.5 mg 06/27/25 01:12 Hydromorphone Hcl Inj (*Crx) 1 Mg/Ml Syr IV PUSH Q4H PRN Pain Rated 7-10 Ceftriaxone Sodium 1 gm/ 50 mls @ 100 mls/hr 06/28/25 04:00 07/01/25 05:17 Sodium Chloride IVPB Infused Q24H ELISA Infusion Ondansetron HCl 4 mg 06/27/25 01:12 Ondansetron Inj 4 Mg/2 Ml Vial IV PUSH Q4H PRN Nausea Polyethylene Glycol 17 gm 06/30/25 10:53 06/30/25 12:05 Polyethylene Glycol 3350 17 Gm Powd.Pack PO 17 gm QAM PRN Administration Constipation Radiology Results: ITS Impressions Chest X-Ray 06/26/25 18:12 IMPRESSION: 1. Abdomen/Pelvis CTA 06/27/25 06:48 IMPRESSION: 1. Mild pulmonary edema with small pleural effusions. 2. Cirrhosis of the liver. 3. Small volume of ascites. 4. Bladder mass suspicious for urothelial carcinoma. Hematoma in the bladder. 5. Wall thickening of the rectum, consistent with proctitis. Labs Labs: Laboratory Results - last 24 hr 07/01/25 04:58 WBC 5.7 RBC 3.18 L Hgb 8.0 L Hct 27.0 L MCV 84.9 MCH 25.2 L MCHC 29.6 L RDW 23.2 H Plt Count 63 L MPV 11.2 H % Immature Plt Fraction 5.3 Sodium 134 L Potassium 3.9 Chloride 109 H Carbon Dioxide 23 Anion Gap 2 L BUN 14 Creatinine 0.70 Estim Creat Clear Calc Not Reportable Estimated GFR > 60 Glucose 115 H Calcium 7.7 L
--- NOTE | 2025-07-01 09:23 | P.PNIM_ITS ---
Progress Note: A&P Assessment and Plan (1) Hematuria: Code(s): R31.9 - Hematuria, unspecified Status: Acute Assessment and Plan: Likely 2/2 bladder mass as seen on CT Hgb 3.1 on admission s/p 3 unit prbc transfused with adequate response Hgb 6.7 on 06/29 and again received 1 unit prbc transfusion with adequate response -the patient has not been on any blood thinners. -continue to monitor H/H, has since been stable -vital signs are stable. - urology consulted s/p for cysto, TURBT with Dr. Escoto on 07/[address] (2) Urinary tract infection: Qualifiers: Hematuria presence: with hematuria Urinary tract infection type: acute cystitis Qualified Code(s): N30.01 - Acute cystitis with hematuria Code(s): N39.0 - Urinary tract infection, site not specified Status: Inactive Assessment and Plan: - UC: ecoli pansensitive - previous micro reviewed 06/17/24: klebsiella pneumoniae - started on rocephin on 06/28 (3) Bladder mass: Code(s): N32.89 - Other specified disorders of bladder Status: Acute Assessment and Plan: Abdomen/pelvis CTA showed bladder mass suspicious for urothelial carcinoma - Urology consulted s/p for cysto, TURBT and Gemcitabine 2gm administered through the catheter/into the bladder with DR. Escoto on 07/01 maintain garcía catheter for urinary diversion (4) Obstructive sleep apnea: Code(s): G47.33 - Obstructive sleep apnea (adult) (pediatric) Status: Acute Assessment and Plan: -continue CPAP as per home settings. (5) Elevated blood sugar: Code(s): R73.9 - Hyperglycemia, unspecified Status: Acute Assessment and Plan: -the patient had an elevated blood sugar on admission - A1c 6.3 on 06/27/25 Reviewed glucose and remains stable. Time Spent With Patient Time with patient: 25 - 35 minutes Subjective Date/time seen: 07/01/25 09:23 Interval history: Patient is pleasant sitting up in chair with family at bedside. She has no compl aints denying chest pain, palpitations, shortness of breath, nausea/vomiting and abdominal pain. Review of Systems Review of Systems: All systems reviewed & are unremarkable except as noted in HPI and below Exam Narrative: AF HR 77 RR 15 Spo2 100 BP 135/51 General: female in no acute respiratory distress who is nontoxic appearing, sitting up in chair HEENT: Normocephalic. Atraumatic. Extraocular movement intact. Sclera clear and anicteric.No facial asymmetry. Chest: Lungs are clear to auscultation bilaterally. No wheezes or crackles. CV: Heart was regular rate and rhythm. : CBI in place. Abd: Abdomen was soft. Nontender. Nondistended. Positive bowel sounds. Ext: No clubbing, cyanosis, or edema. DP pulses bilaterally. Neuro: Patient is alert. Speech is clear. Objective Data Vital Signs Vital Signs: Vital Signs - 24 hr 06/30/25 10:40 06/30/25 12:00 06/30/25 14:00 Temperature 98.2 F Pulse Rate 76 66 Respiratory Rate 16 Blood Pressure 111/46 L Pulse Oximetry 99 99 Oxygen Delivery Room Air 06/30/25 16:00 06/30/25 20:00 06/30/25 20:00 Temperature Pulse Rate 73 80 Respiratory Rate Blood Pressure Pulse Oximetry Oxygen Delivery Room Air 06/30/25 21:11 06/30/25 23:00 07/01/25 00:00 Temperature 99.1 F Pulse Rate 73 72 63 Respiratory Rate 18 22 H Blood Pressure 137/44 L Pulse Oximetry 99 96 Oxygen Delivery CPAP 07/01/25 02:17 07/01/25 04:00 07/01/25 06:00 Temperature 97.7 F Pulse Rate 70 56 L 66 Respiratory Rate 24 H 18 Blood Pressure 111/42 L Pulse Oximetry 99 Oxygen Delivery CPAP Intake/Output Intake/Output: Intake & Output 06/28/25 06/29/25 06/30/25 07/01/25 23:59 23:59 23:59 23:59 Intake Total 1350 1780 1370 400 Output Total 1075 1550 1150 1700 Balance 275 230 220 -1300 Meds/Results Medications: Active Medications Generic Name Dose Route Start Last Admin Trade Name Freq PRN Reason Stop Dose Admin Acetaminophen 650 mg 06/27/25 01:12 Acetaminophen 325 Mg Tablet PO Q4H PRN Mild Pain (1-3) or Fever Calcium Carbonate 200 mg 06/27/25 11:32 Calcium Carbonate (Tums) 500 Mg (200 Mg Elemental) PO Q6H PRN Indigestion Docusate Sodium 100 mg 06/30/25 10:49 06/30/25 12:05 Docusate Sodium 100 Mg Capsule PO 100 mg Q12H PRN Administration Constipation Hydromorphone HCl 0.5 mg 06/27/25 01:12 Hydromorphone Hcl Inj (*Crx) 1 Mg/Ml Syr IV PUSH Q4H PRN Pain Rated 7-10 Ceftriaxone Sodium 1 gm/ 50 mls @ 100 mls/hr 06/28/25 04:00 07/01/25 05:17 Sodium Chloride IVPB Infused Q24H ELISA Infusion Ondansetron HCl 4 mg 06/27/25 01:12 Ondansetron Inj 4 Mg/2 Ml Vial IV PUSH Q4H PRN Nausea Polyethylene Glycol 17 gm 06/30/25 10:53 06/30/25 12:05 Polyethylene Glycol 3350 17 Gm Powd.Pack PO 17 gm QAM PRN Administration Constipation Radiology Results: ITS Impressions Chest X-Ray 06/26/25 18:12 IMPRESSION: 1. Abdomen/Pelvis CTA 06/27/25 06:48 IMPRESSION: 1. Mild pulmonary edema with small pleural effusions. 2. Cirrhosis of the liver. 3. Small volume of ascites. 4. Bladder mass suspicious for urothelial carcinoma. Hematoma in the bladder. 5. Wall thickening of the rectum, consistent with proctitis. Labs Labs: Laboratory Results - last 24 hr 07/01/25 04:58 WBC 5.7 RBC 3.18 L Hgb 8.0 L Hct 27.0 L MCV 84.9 MCH 25.2 L MCHC 29.6 L RDW 23.2 H Plt Count 63 L MPV 11.2 H % Immature Plt Fraction 5.3 Sodium 134 L Potassium 3.9 Chloride 109 H Carbon Dioxide 23 Anion Gap 2 L BUN 14 Creatinine 0.70 Estim Creat Clear Calc Not Reportable Estimated GFR > 60 Glucose 115 H Calcium 7.7 L Quality VTE Prophylaxis VTE prophylaxis: mechanical ordered
--- NOTE | 2025-07-01 10:03 | WPDHPUPDATE1 ---
History and Physical Update Update Date/Time: 07/01/25 10:03 History and Physical has been reviewed, including an updated exam of the patient. There are NO changes in the patient's condition. Risks, benefits, and alternatives have been discussed and questions answered. Patient agrees to proceed with procedure.
--- NOTE | 2025-07-01 13:18 | WPDANESEPPF ---
Anes - Initial Pre Proc Eval Procedure: Operation Date: 07/01/25 12:30 Proposed Procedures p Trans Urethral Resection Bladder Tumor with Gemcitabine Instillation - Keaton Escoto MD Date/Time: 07/01/25 13:18 Surgeon: Dm Langford MD Pre Op Diagnosis: Severe anemia, enterocolitis w/suspected bladder m Patient Data Age: 74 Gender: F Height: 1.45 m Weight: 82.5 kg Last Vital Signs Temp 36.1 C L 07/01/25 11:35 Pulse 65 07/01/25 11:35 Resp 18 07/01/25 11:35 BP 108/71 07/01/25 11:35 Pulse Ox 100 07/01/25 11:35 O2 Del Method Room Air 07/01/25 11:35 Allergies Allergy/AdvReac Type Severity Reaction Status Date / Time No Known Allergies Allergy Verified 07/01/25 12:17 Home Medications ?Medication ?Instructions ?Recorded ?Confirmed ?Type No Home Medications 06/27/25 06/27/25 History Laboratory Tests 07/01/25 04:58 WBC 5.7 K/mm3 (4.5-10.0) RBC 3.18 L M/mm3 (4.2-5.4) Hgb 8.0 L g/dL (12.0-15.0) Hct 27.0 L % (37.0-47.0) MCV 84.9 fl (80-100) MCH 25.2 L pg (26-34) MCHC 29.6 L g/dl (32-36) RDW 23.2 H % (11.5-14.5) Plt Count 63 L k/mm3 (150-375) MPV 11.2 H fl (7.4-10.4) % Immature Plt Fraction 5.3 % (0.9-11.2) Sodium 134 L mmol/L (137-145) Potassium 3.9 mmol/L (3.4-5.0) Chloride 109 H mmol/L (98-107) Carbon Dioxide 23 mmol/L (22-30) Anion Gap 2 L mmol/L (4-12) BUN 14 mg/dL (7-17) Creatinine 0.70 mg/dL (0.7-1.0) Estim Creat Clear Calc Not Reportable Estimated GFR > 60 (59 - ) Glucose 115 H mg/dL (65-110) Calcium 7.7 L mg/dL (8.4-10.2) Patient hx anesthesia problems: none Family hx anesthesia problems: none Results Review: All pre-operative results and documents have been reviewed as part of the pre-operative evaluation. [facility] Past Medical History Medical History Cervical cancer Radiation and chemotherapy Obstructive sleep apnea Surgical History Surgical History History of appendectomy Hx of cholecystectomy H/O section X3 Family History Family History Mother Hypertension Father Cancer Grandparent Cancer Social History Social History Social History: She is and retired. Currently they have no form of transportation. Smoking status: Former smoker Tobacco type: cigarettes Alcohol intake: current Substance use: never Substance use type: does not use Lack of Transportation: No Lack of Food: Sometimes True Current Housing: I Have Housing Concerned About Future Housing: No Difficulty Paying Gas/Electric Bills: YES Difficulty Paying for Meds: No Currently Unemployed: No Education: High School Diploma/GED Difficulty w/ Childcare or Family Care: No Spiritual care concerns: No Anes - Eval Final PreProcedure Day of Procedure 07/01/25 13:18 Patient weight: obese Heart: regular rate and rhythm Lungs: clear to auscultation Airway: Mallampati scale class II Neurological: alert and oriented Last oral intake: >/= 8 hours ASA classification: III Emergent: no Anesthetic plan: proceed Anesthesia type and monitoring: general LMA and standard monitoring Results Review: All pre-operative results and documents have been reviewed as part of the pre-operative evaluation. Informed Consent: The patient's anesthetic plan and its attendant risks and benefits were discussed with the patient/family/POA. Questions were solicited and answers provided to the satisfaction of the patient/family/POA.
--- NOTE | 2025-07-01 14:31 | S_PTH ---
PATIENT: Barbara Desir LOC: [id number] U#:[id number] AGE/SX: 74/F ROOM: 252 RE06/27/[address]: Jessica Morgan MD : 1950 BED: 01 DIS: 07/10/2025 SPEC #: [id number] RECD: 07/02/25 07:50 STATUS: BOB REMarce #: [id number] JANELL: 07/01/25 14:[address]: Keaton Escoto DEPT: [facility] Surgical RECD BY: Sonam Camarillo ENTERED: 07/02/25 07:51 SP TYPE: Surgical OTHR DR: MD Alayna Baird APRN Christopher Farrar, MD INFORMATION OPERATOR PHYSICIAN Lisa Drummond PA-C Tissues: A - Bladder TURBT Procedures: Hematoxylin and Eosin Stain Gross and Microscopic Level 5
[2025-07-01] MEDS: LACTATED RINGERS 1,000 ML 30 ML IV CONT (14:40)
--- NOTE | 2025-07-01 14:41 | W.PM.PROC2 ---
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 Cystoscopy was undertaken with a 24 F resectoscope. Small clot is evacuated. Her bladder is very carefully inspected found to have a carpet like urothelial neoplasm involving the dome and extending into the right lateral bladder wall. With care taken to avoid any transmural injury to the bladder wall this was resected in its entirety with attempt made to include detrusor muscle for pathological evaluation invasion. Care was taken to avoid any injury to the ureteral orifices. The base and periphery was cauterized the resectoscope was removed after evacuated all chips. A [address] catheter was placed to drainage Urine Output 1,000 Drains Yes Packing No Pathology Yes
[2025-07-01] MEDS: fentaNYL CITRATE INJ (*CRX) 100 MCG/2 ML VIAL 25 MCG IV PUSH ×6 (14:48→15:32)
[2025-07-01] MEDS: SODIUM CHLORIDE 0.9% IV 23.7 ML, GEMCITABINE HCL 1,000 MG BLADDER ×2 (14:49→14:51)
--- NOTE | 2025-07-01 15:11 | W.PM.PROC2 ---
Procedure Note - Detailed Date of Procedure 07/01/25 Pre-op Diagnosis Bladder cancer Post-op Diagnosis Same Procedure Performed Gemcitabine instillation Surgeon Keaton Escoto MD Anesthesia None Description of Procedure With the patient in the supine position, a 16F Mitchell catheter is placed using sterile technique. Using a protective facemask, gown and double layer of gloves Gemcitabine 2gm in 100cc saline is administered through the catheter/into the bladder. The catheter is then plugged. Patient was instructed to lie supine x20min, then to roll both the left and right x20 min. each. Total dwell time will be 60 min., after which the bladder will be drained. Urine Output 1,000
--- NOTE | 2025-07-01 15:14 | SUR.PHASEI ---
PER DR SHORT AFTER GEMCITABINE IS DRAINED, PATIENT IS TO BE STARTED ON CBI.
[2025-07-01] MEDS: ACETAMINOPHEN 325 MG TABLET 650 MG PO (16:41)
[2025-07-01] MEDS: TUBING, BLOOD PLUM PUMP TUBING 1 EACH XX (20:36)
[2025-07-01] MEDS: WATER FOR IRRIGATION, STERILE 500 ML BOTTLE (20:36)
[2025-07-01] MEDS: HYDROcodone/acetaminophen (*CRX) 5-325 MG TABLET 1 TAB PO (23:00)
[2025-07-02] VITALS (10 sets, daily range): BP systolic 106–131; BP diastolic 44–52; PULSE 69–99; RESP 16–20; TEMP 36.5–37.3; O2SAT 95–100
[2025-07-02] MEDS: cefTRIAXone 1 GM in SODIUM CHLORIDE 0.9% IV 50 ML 100 ML IVPB (04:21)
[2025-07-02 04:37] LABS: Hematocrit 27.6 % (37.0-47.0); Hemoglobin 8.3 g/dL (12.0-15.0); Immature Platelet Fraction Pct 5.2 % (0.9-11.2); Mean Corpuscular HGB Conc 30.1 g/dl (32-36); Mean Corpuscular Hemoglobin 25.6 pg (26-34); Mean Corpuscular Volume 85.2 fl (80-100); Platelet Count Result 62 k/mm3 (150-375); Red Blood Count 3.24 M/mm3 (4.2-5.4); White Blood Count 8.4 K/mm3 (4.5-10.0)
[2025-07-02 04:52] LABS: Anion Gap 3 mmol/L (4-12); Blood Urea Nitrogen 17 mg/dL (7-17); Calcium 7.6 mg/dL (8.4-10.2); Carbon Dioxide 22 mmol/L (22-30); Chloride 109 mmol/L (98-107); Estimated Glomerular Filt Rate > 60; Glucose 138 mg/dL (65-110); Potassium 4.4 mmol/L (3.4-5.0); Sodium 134 mmol/L (137-145)
[2025-07-02] MEDS: SOLIFENACIN 5 MG TABLET PO (08:48)
--- NOTE | 2025-07-02 10:35 | WPDUROPN2 ---
Progress Note: A&P Assessment and Plan (1) Gross hematuria: Code(s): R31.0 - Gross hematuria Status: Acute Assessment and Plan: - Defer to primary service for transfusions as indicated; this AM hgb at 8.3 (2) Bladder mass: Code(s): N32.89 - Other specified disorders of bladder Status: Acute Assessment and Plan: - POD 1 cysto, TURBT with Dr. 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 -voiding trial with one PVR this morning. Replace garcía for PVR greater than 200ml. (3) Urinary tract infection: Qualifiers: Hematuria presence: with hematuria Urinary tract infection type: acute cystitis Qualified Code(s): N30.01 - Acute cystitis with hematuria Code(s): N39.0 - Urinary tract infection, site not specified Status: Inactive Assessment and Plan: - UCx growing E. Coli - Continue culture driven Abx Subjective Subjective Date/Time Seen: 07/02/25 10:35 Interval history: Patient is laying in bed and is alert and pleasant. cbi is off and urine looks great at clear yellow Review of Systems Review of Systems: All systems reviewed & are unremarkable except as noted in HPI and below Exam Narrative: Patient is awake and alert. She has in no acute distress. Her breathing is unlabored. She has a García catheter in place with yellow urine. Objective Data Vital Signs Vital Signs: Vital Signs - 24 hr 07/01/25 11:08 07/01/25 11:08 07/01/25 11:35 Temperature 97 F L Pulse Rate 60 65 Respiratory Rate 18 Blood Pressure 108/71 Pulse Oximetry 100 Oxygen Delivery Room Air Room Air Oxygen Flow Rate 07/01/25 14:40 07/01/25 14:55 07/01/25 15:10 Temperature 97.5 F L Pulse Rate 52 L 64 64 Respiratory Rate 14 18 17 Blood Pressure 143/120 H 142/42 H 126/55 L Pulse Oximetry 100 100 100 Oxygen Delivery Simple Face Mask Simple Face Mask Simple Face Mask Oxygen Flow Rate 8 8 8 07/01/25 15:13 07/01/25 15:25 07/01/25 15:40 Temperature Pulse Rate 67 67 Respiratory Rate 14 14 Blood Pressure 145/65 H 133/66 Pulse Oximetry 100 100 Oxygen Delivery Room Air Room Air Room Air Oxygen Flow Rate 07/01/25 15:55 07/01/25 16:00 07/01/25 16:10 Temperature 97.6 F Pulse Rate 69 80 62 Respiratory Rate 17 18 Blood Pressure 125/47 L 128/50 L Pulse Oximetry 99 100 Oxygen Delivery Room Air Room Air Oxygen Flow Rate 07/01/25 16:35 07/01/25 17:21 07/01/25 18:03 Temperature 97.2 F L 97.3 F L 97.3 F L Pulse Rate 77 76 77 Respiratory Rate 15 16 15 Blood Pressure 135/51 L 130/46 L 152/39 H Pulse Oximetry 100 100 100 Oxygen Delivery Oxygen Flow Rate 07/01/25 20:00 07/01/25 20:13 07/01/25 21:30 Temperature 97.8 F Pulse Rate 76 70 Respiratory Rate 16 Blood Pressure 127/41 L Pulse Oximetry 100 Oxygen Delivery CPAP Oxygen Flow Rate 07/01/25 23:32 07/02/25 00:00 07/02/25 03:46 Temperature 97.5 F L 97.7 F Pulse Rate 75 83 75 Respiratory Rate 18 18 Blood Pressure 128/41 L 106/46 L Pulse Oximetry 100 99 Oxygen Delivery Oxygen Flow Rate 07/02/25 04:00 07/02/25 08:50 Temperature Pulse Rate 73 Respiratory Rate Blood Pressure Pulse Oximetry Oxygen Delivery Room Air Oxygen Flow Rate Intake/Output Intake/Output: Intake & Output 06/29/25 06/30/25 07/01/25 07/02/25 23:59 23:59 23:59 23:59 Intake Total 1780 1370 500 780 Output Total 1550 1150 5150 1700 Balance 230 220 -6090 -920 Meds/Results Medications: Active Medications Generic Name Dose Route Start Last Admin Trade Name Freq PRN Reason Stop Dose Admin Acetaminophen 650 mg 06/27/25 01:12 07/01/25 16:41 Acetaminophen 325 Mg Tablet PO 650 mg Q4H PRN Administration Mild Pain (1-3) or Fever Hydrocodone Bitart/Acetaminophen 1 tab 07/01/25 21:32 07/01/25 23:00 Hydrocodone/Acetaminophen (*Crx) 5-325 Mg Tablet PO 1 tab Q4H PRN Administration Pain Rated 4-6 Calcium Carbonate 200 mg 06/27/25 11:32 Calcium Carbonate (Tums) 500 Mg (200 Mg Elemental) PO Q6H PRN Indigestion Docusate Sodium 100 mg 06/30/25 10:49 06/30/25 12:05 Docusate Sodium 100 Mg Capsule PO 100 mg Q12H PRN Administration Constipation Fentanyl Citrate 25 mcg 07/01/25 14:44 07/01/25 15:32 Fentanyl Citrate Inj (*Crx) 100 Mcg/2 Ml Vial IV PUSH 25 mcg Q2M PRN Administration Pain Hydromorphone HCl 0.5 mg 06/27/25 01:12 Hydromorphone Hcl Inj (*Crx) 1 Mg/Ml Syr IV PUSH Q4H PRN Pain Rated 7-10 Ceftriaxone Sodium 1 gm/ 50 mls @ 100 mls/hr 06/28/25 04:00 07/02/25 04:51 Sodium Chloride IVPB Infused Q24H ELISA Infusion Ondansetron HCl 4 mg 06/27/25 01:12 Ondansetron Inj 4 Mg/2 Ml Vial IV PUSH Q4H PRN Nausea Ondansetron HCl 4 mg 07/01/25 14:44 Ondansetron Inj 4 Mg/2 Ml Vial IV PUSH ONCE PRN Nausea Polyethylene Glycol 17 gm 06/30/25 10:53 06/30/25 12:05 Polyethylene Glycol 3350 17 Gm Powd.Pack PO 17 gm QAM PRN Administration Constipation Solifenacin 5 mg 07/02/25 09:00 07/02/25 08:48 Solifenacin 5 Mg Tablet PO 5 mg QAM ELISA Administration Radiology Results: ITS Impressions Chest X-Ray 06/26/25 18:12 IMPRESSION: 1. Abdomen/Pelvis CTA 06/27/25 06:48 IMPRESSION: 1. Mild pulmonary edema with small pleural effusions. 2. Cirrhosis of the liver. 3. Small volume of ascites. 4. Bladder mass suspicious for urothelial carcinoma. Hematoma in the bladder. 5. Wall thickening of the rectum, consistent with proctitis. Labs Labs: Laboratory Results - last 24 hr 07/02/25 04:09 WBC 8.4 RBC 3.24 L Hgb 8.3 L Hct 27.6 L MCV 85.2 MCH 25.6 L MCHC 30.1 L RDW 23.6 H Plt Count 62 L MPV TNP % Immature Plt Fraction 5.2 Sodium 134 L Potassium 4.4 Chloride 109 H Carbon Dioxide 22 Anion Gap 3 L BUN 17 Creatinine 0.76 Estim Creat Clear Calc Not Reportable Estimated GFR > 60 Glucose 138 H Calcium 7.6 L
--- NOTE | 2025-07-02 12:07 | PCNWS ---
Weekly nutritional screen. Patient is tolerating current diet with adequate intake. No weight loss reported. No nutritional needs at this time.
--- NOTE | 2025-07-02 13:53 | PM.IMPN ---
Progress Note: A&P Assessment and Plan (1) Hematuria: Code(s): R31.9 - Hematuria, unspecified Status: Acute Assessment and Plan: Likely 2/2 bladder mass as seen on CT Hgb 3.1 on admission s/p 3 unit prbc transfused with adequate response Hgb 6.7 on 06/29 and again received 1 unit prbc transfusion with adequate response -the patient has not been on any blood thinners. -continue to monitor H/H, has since been stable -vital signs are stable. - urology consulted s/p for cysto, TURBT with Dr. Escoto on 07/[address] 07/02 -POD 1 cysto, TURBT with Dr. Escoto CBI d/c, urine is yellow urology following hg stable (2) Urinary tract infection: Qualifiers: Hematuria presence: with hematuria Urinary tract infection type: acute cystitis Qualified Code(s): N30.01 - Acute cystitis with hematuria Code(s): N39.0 - Urinary tract infection, site not specified Status: Inactive Assessment and Plan: - UC: ecoli pansensitive - previous micro reviewed 06/17/24: klebsiella pneumoniae - started on rocephin on 06/28 07/02- urine culture growing e coli, continue antibiotic (3) Bladder mass: Code(s): N32.89 - Other specified disorders of bladder Status: Acute Assessment and Plan: Abdomen/pelvis CTA showed bladder mass suspicious for urothelial carcinoma - Urology consulted s/p for cysto, TURBT and Gemcitabine 2gm administered through the catheter/into the bladder with DR. Escoto on 07/01 maintain garcía catheter for urinary diversion (4) Obstructive sleep apnea: Code(s): G47.33 - Obstructive sleep apnea (adult) (pediatric) Status: Acute Assessment and Plan: -continue CPAP as per home settings. (5) Elevated blood sugar: Code(s): R73.9 - Hyperglycemia, unspecified Status: Acute Assessment and Plan: -the patient had an elevated blood sugar on admission - A1c 6.3 on 06/27/25 Reviewed glucose and remains stable. Time Spent With Patient Time with patient: 25 - 35 minutes Subjective Date/time seen: 07/02/25 13:53 Interval history: Patient is seen and examined. CBI d/c per urology today urine looks great at clear yellow. She is alert and pleasant.hg stable. NO n/v/d. Review of Systems Review of Systems: All systems reviewed & are unremarkable except as noted in HPI and below Constitutional: Constitutional: Reports as per HPI and Reports no additional constitutional complaints Eyes: Eyes: Reports as per HPI and Reports no additional eye complaints ENT: Reports system reviewed and no additional complaints, except as documented and Reports Normal hearing present Cardiovascular: Cardiovascular: Reports no additional cardiovascular complaints Respiratory: Respiratory: Reports as per HPI and Reports no additional respiratory complaints Gastrointestinal: Gastrointestinal: Reports as per HPI and Reports no additional gastrointestinal complaints Genitourinary: Genitourinary: Reports no additional female genitourinary complaints Musculoskeletal: Musculoskeletal: Reports no additional musculoskeletal complaints Integumentary/Breasts: Skin/Breast: Reports system reviewed and no additional complaints, except as docu Neurologic: Reports system reviewed and no additional complaints, except as documented and Reports Normal hearing present Psychiatric: Psychiatric: Reports no additional psychiatric complaints and Reports as per HPI Hematologic/Lymphatic: Hematologic/Lymphatic: Reports no additional hematologic/lymphatic complaints Allergic/Immunologic: Allergic/Immunologic: Reports no additional allergic/immunologic complaints Exam Narrative: General: female in no acute respiratory distress who is nontoxic appearing, sitting up in chair HEENT: Normocephalic. Atraumatic. Extraocular movement intact. Sclera clear and anicteric.No facial asymmetry. Chest: Lungs are clear to auscultation bilaterally. No wheezes or crackles. CV: Heart was regular rate and rhythm. : CBI discontinued Abd: Abdomen was soft. Nontender. Nondistended. Positive bowel sounds. Ext: No clubbing, cyanosis, or edema. DP pulses bilaterally. Neuro: Patient is alert. Speech is clear. Const: General: cooperative, comfortable, no acute distress, well developed, awake, Physically active, average body habitus and well nourished Nutritional Appearance: average body habitus and well nourished Orientation/consciousness: oriented to person, oriented to place, oriented to time and patient oriented x3 Limitations: no limitations HENMT: Head: normal to inspection, No palpable skull fracture present, normocephalic, atraumatic and abrasion Ears: hearing grossly normal bilaterally and external ears normal Eyes: General: appearance normal, both eyes and all related structures Alignment and Position: alignment normal Periorbital: periorbital findings normal Eyelids: eyelids normal Pupils: Equal, round and reactive pupils present Neck: Neck: normal visual inspection, full ROM and no lymphadenopathy Chest: Chest palpation & inspection: normal inspection of the chest Resp: Effort & Inspection: normal respiratory effort Auscultation: clear to auscultation bilaterally Percussion: percussion normal Cardio: Palpation: normal PMI Rate: regular rate Rhythm: regular rhythm Heart sounds: S1 normal heart sound present and S2 normal heart sound present Peripheral pulses: Peripheral pulses 2+ throughout GI: Inspection: normal to inspection Auscultation: normal bowel sounds Rectal Exam: deferred : General: Yes no CVA tenderness Back/Spine/Pelvis: Back: no CVA tenderness Skin: General skin exam: normal color Lesions: no lesions Rashes: no rashes Trauma: no lacerations or abrasions Wounds: no wounds Hair: normal Nails: normal Neuro: General: oriented to person, oriented to place, oriented to time and patient oriented x3 Cranial nerves: Yes Equal, round and reactive pupils present and Yes Normal hearing present Cognition (Neuro): normal cognition Speech: normal speech Gait exam (Neuro): Normal gait present Motor exam (neuro): 5/5 motor strength present throughout Sensory Exam: normal sensation Extrem: General: normal to inspection Right upper extremity: normal to inspection and shoulder/upper arm Left upper extremity: normal to inspection and shoulder/upper arm Right lower extremity: normal to inspection Left lower extremity: normal to inspection Psych: Appearance: grossly normal Mental Status: mental status grossly normal Speech and movement: Normal speech and movement present Affect: normal affect Attitude: cooperative Thought process: Normal thought process present Insight: Good insight present (Psych) Judgement: Good judgement present (Psych) Objective Data Vital Signs Vital Signs: Vital Signs - 24 hr 07/01/25 14:40 07/01/25 14:55 07/01/25 15:10 Temperature 97.5 F L Pulse Rate 52 L 64 64 Respiratory Rate 14 18 17 Blood Pressure 143/120 H 142/42 H 126/55 L Pulse Oximetry 100 100 100 Oxygen Delivery Simple Face Mask Simple Face Mask Simple Face Mask Oxygen Flow Rate 8 8 8 07/01/25 15:13 07/01/25 15:25 07/01/25 15:40 Temperature Pulse Rate 67 67 Respiratory Rate 14 14 Blood Pressure 145/65 H 133/66 Pulse Oximetry 100 100 Oxygen Delivery Room Air Room Air Room Air Oxygen Flow Rate 07/01/25 15:55 07/01/25 16:00 07/01/25 16:10 Temperature 97.6 F Pulse Rate 69 80 62 Respiratory Rate 17 18 Blood Pressure 125/47 L 128/50 L Pulse Oximetry 99 100 Oxygen Delivery Room Air Room Air Oxygen Flow Rate 07/01/25 16:35 07/01/25 17:21 07/01/25 18:03 Temperature 97.2 F L 97.3 F L 97.3 F L Pulse Rate 77 76 77 Respiratory Rate 15 16 15 Blood Pressure 135/51 L 130/46 L 152/39 H Pulse Oximetry 100 100 100 Oxygen Delivery Oxygen Flow Rate 07/01/25 20:00 07/01/25 20:13 07/01/25 21:30 Temperature 97.8 F Pulse Rate 76 70 Respiratory Rate 16 Blood Pressure 127/41 L Pulse Oximetry 100 Oxygen Delivery CPAP Oxygen Flow Rate 07/01/25 23:32 07/02/25 00:00 07/02/25 03:46 Temperature 97.5 F L 97.7 F Pulse Rate 75 83 75 Respiratory Rate 18 18 Blood Pressure 128/41 L 106/46 L Pulse Oximetry 100 99 Oxygen Delivery Oxygen Flow Rate 07/02/25 04:00 07/02/25 08:00 07/02/25 08:50 Temperature Pulse Rate 73 77 Respiratory Rate Blood Pressure Pulse Oximetry Oxygen Delivery Room Air Oxygen Flow Rate 07/02/25 12:00 Temperature Pulse Rate 90 Respiratory Rate Blood Pressure Pulse Oximetry Oxygen Delivery Oxygen Flow Rate Intake/Output Intake/Output: Intake & Output 06/29/25 06/30/25 07/01/25 07/02/25 23:59 23:59 23:59 23:59 Intake Total 1780 1370 500 780 Output Total 1550 1150 5150 2800 Balance 230 895 -5057 Meds/Results Medications: Active Medications Generic Name Dose Route Start Last Admin Trade Name Freq PRN Reason Stop Dose Admin Acetaminophen 650 mg 06/27/25 01:12 07/01/25 16:41 Acetaminophen 325 Mg Tablet PO 650 mg Q4H PRN Administration Mild Pain (1-3) or Fever Hydrocodone Bitart/Acetaminophen 1 tab 07/01/25 21:32 07/01/25 23:00 Hydrocodone/Acetaminophen (*Crx) 5-325 Mg Tablet PO 1 tab Q4H PRN Administration Pain Rated 4-6 Calcium Carbonate 200 mg 06/27/25 11:32 Calcium Carbonate (Tums) 500 Mg (200 Mg Elemental) PO Q6H PRN Indigestion Docusate Sodium 100 mg 06/30/25 10:49 06/30/25 12:05 Docusate Sodium 100 Mg Capsule PO 100 mg Q12H PRN Administration Constipation Fentanyl Citrate 25 mcg 07/01/25 14:44 07/01/25 15:32 Fentanyl Citrate Inj (*Crx) 100 Mcg/2 Ml Vial IV PUSH 25 mcg Q2M PRN Administration Pain Hydromorphone HCl 0.5 mg 06/27/25 01:12 Hydromorphone Hcl Inj (*Crx) 1 Mg/Ml Syr IV PUSH Q4H PRN Pain Rated 7-10 Ceftriaxone Sodium 1 gm/ 50 mls @ 100 mls/hr 06/28/25 04:00 07/02/25 04:51 Sodium Chloride IVPB Infused Q24H ELISA Infusion Ondansetron HCl 4 mg 06/27/25 01:12 Ondansetron Inj 4 Mg/2 Ml Vial IV PUSH Q4H PRN Nausea Ondansetron HCl 4 mg 07/01/25 14:44 Ondansetron Inj 4 Mg/2 Ml Vial IV PUSH ONCE PRN Nausea Polyethylene Glycol 17 gm 06/30/25 10:53 06/30/25 12:05 Polyethylene Glycol 3350 17 Gm Powd.Pack PO 17 gm QAM PRN Administration Constipation Solifenacin 5 mg 07/02/25 09:00 07/02/25 08:48 Solifenacin 5 Mg Tablet PO 5 mg QAM ELISA Administration Radiology Results: ITS Impressions Chest X-Ray 06/26/25 18:12 IMPRESSION: 1. Abdomen/Pelvis CTA 06/27/25 06:48 IMPRESSION: 1. Mild pulmonary edema with small pleural effusions. 2. Cirrhosis of the liver. 3. Small volume of ascites. 4. Bladder mass suspicious for urothelial carcinoma. Hematoma in the bladder. 5. Wall thickening of the rectum, consistent with proctitis. Labs Labs: Laboratory Results - last 24 hr 07/02/25 04:09 WBC 8.4 RBC 3.24 L Hgb 8.3 L Hct 27.6 L MCV 85.2 MCH 25.6 L MCHC 30.1 L RDW 23.6 H Plt Count 62 L MPV TNP % Immature Plt Fraction 5.2 Sodium 134 L Potassium 4.4 Chloride 109 H Carbon Dioxide 22 Anion Gap 3 L BUN 17 Creatinine 0.76 Estim Creat Clear Calc Not Reportable Estimated GFR > 60 Glucose 138 H Calcium 7.6 L Quality VTE Prophylaxis VTE prophylaxis: mechanical ordered
[2025-07-02] MEDS: HYDROcodone/acetaminophen (*CRX) 5-325 MG TABLET 1 TAB PO (15:08)
[2025-07-02] MEDS: DOCUSATE SODIUM 100 MG CAPSULE PO (15:08)
[2025-07-03] VITALS (60 sets, daily range): BP systolic 114–133; BP diastolic 34–40; PULSE 71–100; RESP 15–20; TEMP 37.1–39.4; O2SAT 94–99
[2025-07-03] MEDS: WATER FOR IRRIGATION, STERILE 1,000 ML BOTTLE 1000 ML (02:31)
[2025-07-03] MEDS: cefTRIAXone 1 GM in SODIUM CHLORIDE 0.9% IV 50 ML 100 ML IVPB (04:22)
[2025-07-03] MEDS: ACETAMINOPHEN 325 MG TABLET 650 MG PO ×2 (06:16→09:40)
[2025-07-03 06:47] LABS: Add Urine Microscopic? YES; Appearance Urine Cloudy (Clear); Glucose Urine UA Negative (Negative); Leukocyte Esterase Ur 2+ LEU/UL (Negative); Need Manual Microscopic Reviewed; Nitrate Urine Negative (Negative); Specific Grav Ur 1.020 (1.001-1.035)
--- NOTE | 2025-07-03 06:56 | PC.NURSE ---
Dr Wallace and Dr Fuchs notified patient febrile with temp. 102.9. UA, blood cultures, lactic, and pro keith ordered by hospitalist; CT of abd/pelvis ordered by urology. Tylenol given for fever, will continue to monitor closely.
[2025-07-03 07:34] LABS: Procalcitonin 1.0 ng/mL
--- NOTE | 2025-07-03 08:13 | PM.IMPN ---
Progress Note: A&P Assessment and Plan (1) Hematuria: Code(s): R31.9 - Hematuria, unspecified Status: Acute Assessment and Plan: Likely 2/2 bladder mass as seen on CT Hgb 3.1 on admission s/p 3 unit prbc transfused with adequate response Hgb 6.7 on 06/29 and again received 1 unit prbc transfusion with adequate response -the patient has not been on any blood thinners. -continue to monitor H/H, has since been stable -vital signs are stable. - urology consulted s/p for cysto, TURBT with Dr. Escoto on 07/[address] 07/02 -POD 1 cysto, TURBT with Dr. Escoto CBI d/c, urine is yellow urology following hg stable 07/03 hg/hct 8.3/27.6 fever this am- pelvis CT is ordered- pending (2) Urinary tract infection: Qualifiers: Hematuria presence: with hematuria Urinary tract infection type: acute cystitis Qualified Code(s): N30.01 - Acute cystitis with hematuria Code(s): N39.0 - Urinary tract infection, site not specified Status: Inactive Assessment and Plan: - UC: ecoli pansensitive - previous micro reviewed 06/17/24: klebsiella pneumoniae - started on rocephin on 06/28 07/02- urine culture growing e coli, continue antibiotic 07/03 spiked fever this am, VS stable. Urine/c/s and BC collected. pelvic CT ordered (3) Bladder mass: Code(s): N32.89 - Other specified disorders of bladder Status: Acute Assessment and Plan: Abdomen/pelvis CTA showed bladder mass suspicious for urothelial carcinoma - Urology consulted s/p for cysto, TURBT and Gemcitabine 2gm administered through the catheter/into the bladder with DR. Escoto on 07/01 maintain garcía catheter for urinary diversion (4) Obstructive sleep apnea: Code(s): G47.33 - Obstructive sleep apnea (adult) (pediatric) Status: Acute Assessment and Plan: -continue CPAP as per home settings. (5) Elevated blood sugar: Code(s): R73.9 - Hyperglycemia, unspecified Status: Acute Assessment and Plan: -the patient had an elevated blood sugar on admission - A1c 6.3 on 06/27/25 Reviewed glucose and remains stable. Time Spent With Patient Time with patient: 25 - 35 minutes Subjective Date/time seen: 07/03/25 08:13 Interval history: This is a 74-year-old female patient who is a past medical history of having cervical cancer with radiation and chemotherapy. She was not able to have surgery due to the proximity of the cancer to the rectal area. The patient stated that she has been having some bleeding for over a month now. Her H&H was noted to be 3.1 and 13.2 in ed. Her reticular count was 4.48, articular hemoglobin 14.0, blood glucose 164, calcium 7.9, iron 22, O2 saturation 6 and ferritin 4.44. Her urine was dark red with 3+ protein 3+ blood. she received multriple blood transfusion until she was taken to [place] with DR Escoto for Trans Urethral Resection Bladder Tumor with Gemcitabine Instillation - she was on CBI until it was d/bird on 07/02. She spiked a fever this am- 102.9 and BC were collected. Patient is seen and examined. She is alert and pleasant.hg stable. NO n/v/d. NOted fever, pelvic CT ordered-pending. Review of Systems Review of Systems: All systems reviewed & are unremarkable except as noted in HPI and below Constitutional: Constitutional: Reports as per HPI and Reports no additional constitutional complaints Eyes: Eyes: Reports as per HPI and Reports no additional eye complaints ENT: Reports system reviewed and no additional complaints, except as documented and Reports Normal hearing present Cardiovascular: Cardiovascular: Reports no additional cardiovascular complaints Respiratory: Respiratory: Reports as per HPI and Reports no additional respiratory complaints Gastrointestinal: Gastrointestinal: Reports as per HPI and Reports no additional gastrointestinal complaints Genitourinary: Genitourinary: Reports no additional female genitourinary complaints Musculoskeletal: Musculoskeletal: Reports no additional musculoskeletal complaints Integumentary/Breasts: Skin/Breast: Reports system reviewed and no additional complaints, except as docu Neurologic: Reports system reviewed and no additional complaints, except as documented and Reports Normal hearing present Psychiatric: Psychiatric: Reports no additional psychiatric complaints and Reports as per HPI Hematologic/Lymphatic: Hematologic/Lymphatic: Reports no additional hematologic/lymphatic complaints Allergic/Immunologic: Allergic/Immunologic: Reports no additional allergic/immunologic complaints Exam Narrative: General: female in no acute respiratory distress who is nontoxic appearing, resting in bed HEENT: Normocephalic. Atraumatic. Extraocular movement intact. Sclera clear and anicteric.No facial asymmetry. Chest: Lungs are clear to auscultation bilaterally. No wheezes or crackles. CV: Heart was regular rate and rhythm. : CBI discontinued Abd: Abdomen was soft. Nontender. Nondistended. Positive bowel sounds. Ext: No clubbing, cyanosis, or edema. DP pulses bilaterally. Neuro: Patient is alert. Speech is clear. Const: General: cooperative, comfortable, no acute distress, well developed, awake, Physically active, average body habitus and well nourished Nutritional Appearance: average body habitus and well nourished HENMT: Head: normal to inspection, No palpable skull fracture present, normocephalic and atraumatic Eyes: General: appearance normal, both eyes and all related structures Alignment and Position: alignment normal Periorbital: periorbital findings normal Eyelids: eyelids normal Pupils: Equal, round and reactive pupils present Neck: Neck: normal visual inspection, full ROM and no lymphadenopathy Chest: Chest palpation & inspection: normal inspection of the chest Resp: Effort & Inspection: normal respiratory effort Auscultation: clear to auscultation bilaterally Percussion: percussion normal Cardio: Palpation: normal PMI Rate: regular rate Rhythm: regular rhythm Heart sounds: S1 normal heart sound present and S2 normal heart sound present Peripheral pulses: Peripheral pulses 2+ throughout GI: Inspection: normal to inspection Auscultation: normal bowel sounds Rectal Exam: deferred : General: Yes no CVA tenderness Back/Spine/Pelvis: Back: no CVA tenderness Skin: General skin exam: normal color Lesions: no lesions Rashes: no rashes Trauma: no lacerations or abrasions Wounds: no wounds Hair: normal Nails: normal Neuro: General: oriented to person, oriented to place, oriented to time and patient oriented x3 Cranial nerves: Yes Equal, round and reactive pupils present and Yes Normal hearing present Cognition (Neuro): normal cognition Speech: normal speech Gait exam (Neuro): Normal gait present Motor exam (neuro): 5/5 motor strength present throughout Sensory Exam: normal sensation Extrem: General: normal to inspection Psych: Appearance: grossly normal Mental Status: mental status grossly normal Speech and movement: Normal speech and movement present Affect: normal affect Attitude: cooperative Thought process: Normal thought process present Insight: Good insight present (Psych) Judgement: Good judgement present (Psych) Objective Data Vital Signs Vital Signs: Vital Signs - 24 hr 07/02/25 08:50 07/02/25 12:00 07/02/25 16:00 Temperature Pulse Rate 90 99 Respiratory Rate Blood Pressure Pulse Oximetry Oxygen Delivery Room Air 07/02/25 16:41 07/02/25 20:00 07/02/25 20:00 Temperature 97.8 F Pulse Rate 70 83 Respiratory Rate 18 Blood Pressure 122/52 L Pulse Oximetry 98 Oxygen Delivery Room Air 07/02/25 20:52 07/02/25 23:10 07/03/25 00:00 Temperature 99.1 F Pulse Rate 79 69 74 Respiratory Rate 16 20 Blood Pressure 131/44 L Pulse Oximetry 100 95 Oxygen Delivery CPAP 07/03/25 02:37 07/03/25 04:00 07/03/25 06:07 Temperature 102.9 F H Pulse Rate 71 76 80 Respiratory Rate 20 16 Blood Pressure 133/34 L Pulse Oximetry 95 94 Oxygen Delivery CPAP 07/03/25 06:16 Temperature 102.9 F H Pulse Rate Respiratory Rate Blood Pressure Pulse Oximetry Oxygen Delivery Intake/Output Intake/Output: Intake & Output 06/30/25 07/01/25 07/02/25 07/03/25 23:59 23:59 23:59 23:59 Intake Total 4722 480 7063 50 Output Total 1150 5150 2900 575 Balance 220 -4650 -1705 -525 Meds/Results Medications: Active Medications Generic Name Dose Route Start Last Admin Trade Name Freq PRN Reason Stop Dose Admin Acetaminophen 650 mg 06/27/25 01:12 07/03/25 06:16 Acetaminophen 325 Mg Tablet PO 650 mg Q4H PRN Administration Mild Pain (1-3) or Fever Hydrocodone Bitart/Acetaminophen 1 tab 07/01/25 21:32 07/02/25 15:08 Hydrocodone/Acetaminophen (*Crx) 5-325 Mg Tablet PO 1 tab Q4H PRN Administration Pain Rated 4-6 Calcium Carbonate 200 mg 06/27/25 11:32 Calcium Carbonate (Tums) 500 Mg (200 Mg Elemental) PO Q6H PRN Indigestion Docusate Sodium 100 mg 06/30/25 10:49 07/02/25 15:08 Docusate Sodium 100 Mg Capsule PO 100 mg Q12H PRN Administration Constipation Fentanyl Citrate 25 mcg 07/01/25 14:44 07/01/25 15:32 Fentanyl Citrate Inj (*Crx) 100 Mcg/2 Ml Vial IV PUSH 25 mcg Q2M PRN Administration Pain Hydromorphone HCl 0.5 mg 06/27/25 01:12 Hydromorphone Hcl Inj (*Crx) 1 Mg/Ml Syr IV PUSH Q4H PRN Pain Rated 7-10 Ceftriaxone Sodium 1 gm/ 50 mls @ 100 mls/hr 06/28/25 04:00 07/03/25 04:52 Sodium Chloride IVPB Infused Q24H ELISA Infusion Ondansetron HCl 4 mg 06/27/25 01:12 Ondansetron Inj 4 Mg/2 Ml Vial IV PUSH Q4H PRN Nausea Ondansetron HCl 4 mg 07/01/25 14:44 Ondansetron Inj 4 Mg/2 Ml Vial IV PUSH ONCE PRN Nausea Polyethylene Glycol 17 gm 06/30/25 10:53 06/30/25 12:05 Polyethylene Glycol 3350 17 Gm Powd.Pack PO 17 gm QAM PRN Administration Constipation Solifenacin 5 mg 07/02/25 09:00 07/02/25 08:48 Solifenacin 5 Mg Tablet PO 5 mg QAM ELISA Administration Radiology Results: ITS Impressions Chest X-Ray 06/26/25 18:12 IMPRESSION: 1. Abdomen/Pelvis CTA 06/27/25 06:48 IMPRESSION: 1. Mild pulmonary edema with small pleural effusions. 2. Cirrhosis of the liver. 3. Small volume of ascites. 4. Bladder mass suspicious for urothelial carcinoma. Hematoma in the bladder. 5. Wall thickening of the rectum, consistent with proctitis. Abdomen/Pelvis CT 07/03/25 07:19 IMPRESSION: 1. Highly worrisome for urinary bladder perforation. Labs Labs: Laboratory Results - last 24 hr 07/03/25 07/03/25 06:19 06:49 Lactic Acid 1.1 Procalcitonin 1.0 Urine Color Yellow Urine Appearance Cloudy H Urine pH 5.5 Ur Specific [place] 1.020 Urine Protein 2+ H Urine Glucose (UA) Negative Urine Ketones Negative Ur Blood (Man) 3+ H Urine Nitrate Negative Urine Bilirubin Negative Urine Urobilinogen 0.2 Add Ur Microanalysis Reviewed Leukocyte Esterase Rfl 2+ H Urine RBC >100 H Urine WBC 21-50 H Ur Squamous Epith Cells None seen Urine Bacteria None seen Urine Casts 6-10 Quality VTE Prophylaxis VTE prophylaxis: mechanical ordered
[2025-07-03] MEDS: DOCUSATE SODIUM 100 MG CAPSULE PO (09:42)
[2025-07-03] MEDS: SOLIFENACIN 5 MG TABLET PO (09:42)
[2025-07-03 10:28] LABS: Alanine Aminotransferase 15 U/L (6-35); Albumin Level 2.4 g/dL (3.5-5.1); Alkaline Phosphatase 62 U/L (38-126); Anion Gap 1 mmol/L (4-12); Aspartate Amino Transferase 31 U/L (14-36); Bilirubin,Total 1.0 mg/dL (0.2-1.3); Blood Urea Nitrogen 16 mg/dL (7-17); Calcium 7.4 mg/dL (8.4-10.2); Carbon Dioxide 21 mmol/L (22-30); Chloride 107 mmol/L (98-107); Estimated Glomerular Filt Rate > 60; Glucose 182 mg/dL (65-110); Potassium 4.3 mmol/L (3.4-5.0); Sodium 129 mmol/L (137-145); Total Protein 5.1 g/dL (6.3-8.2)
[2025-07-03 11:35] LABS: Hematocrit 24.1 % (37.0-47.0); Hemoglobin 7.4 g/dL (12.0-15.0); Immature Granulocyte Percent A 0.5 % (0-0.5); Immature Platelet Fraction Pct 4.3 % (0.9-11.2); Lymphocytes Absolute Auto 0.51 K/mm3 (0.9-3.2); Mean Corpuscular HGB Conc 30.7 g/dl (32-36); Mean Corpuscular Hemoglobin 25.8 pg (26-34); Mean Corpuscular Volume 84.0 fl (80-100); Nucleated Red Blood Cells Absolute Auto 0.000 K/mm3 (0.0-0.012); Nucleated Red Blood Cells Perc 0.0 % (0.0-0.2); Platelet Count Result 52 k/mm3 (150-375); Red Blood Count 2.87 M/mm3 (4.2-5.4); White Blood Count 7.6 K/mm3 (4.5-10.0)
[2025-07-03 11:59] LABS: Anisocytosis 2+
[2025-07-03 12:00] LABS: Ovalocytes 1+
[2025-07-03 12:01] LABS: Tear Drop Cells Occasional
[2025-07-03 12:02] LABS: Hypochromasia 1+
[2025-07-03 12:03] LABS: Burr Cells Occasional; Schistocytes Rare
--- NOTE | 2025-07-03 12:11 | P.PNUR_ITS ---
Progress Note: A&P Assessment and Plan (1) Bladder mass: Code(s): N32.89 - Other specified disorders of bladder Status: Acute Assessment and Plan: Small extraperitoneal bladder perforation noted on CT Cystogram this morning--maintain catheter, typically for two weeks with repeat cystogram prior to trial of void. Unclear etiology of fevers, could be of urinary source. No significant atelectasis noted on CXR, however recommend starting incentive spirometry. Consider broadening antibiotic coverage, cultures are pending. Subjective Subjective Date/Time Seen: 07/03/25 12:11 Interval history: I received call from floor nursing this morning about fevers, cultures and X-ray had already been ordered. I ordered a CT abdomen and pelvis wo contrast. CT showed concern for bladder perforation. Thus a cystogram was ordered which shows some concern for extraperitoneal rupture with a small blush of contrast at anterior bladder in space of [place]. At this time, she is draining clear yellow urine. Review of Systems Review of Systems: All systems reviewed & are unremarkable except as noted in HPI and below Exam Narrative: NAD, A&Ox3 RRR eWOB S/NT/ND 2+ DP, warm/dry extremities Mitchell in place with clear yellow urine. Objective Data Vital Signs Vital Signs: Vital Signs - 24 hr 07/02/25 16:00 07/02/25 16:41 07/02/25 20:00 Temperature 97.8 F Pulse Rate 99 70 83 Respiratory Rate 18 Blood Pressure 122/52 L Pulse Oximetry 98 Oxygen Delivery 07/02/25 20:00 07/02/25 20:52 07/02/25 23:10 Temperature 99.1 F Pulse Rate 79 69 Respiratory Rate 16 20 Blood Pressure 131/44 L Pulse Oximetry 100 95 Oxygen Delivery Room Air CPAP 07/03/25 00:00 07/03/25 02:37 07/03/25 04:00 Temperature Pulse Rate 74 71 76 Respiratory Rate 20 Blood Pressure Pulse Oximetry 95 Oxygen Delivery CPAP 07/03/25 06:07 07/03/25 06:16 07/03/25 08:00 Temperature 102.9 F H 102.9 F H Pulse Rate 80 93 Respiratory Rate 16 Blood Pressure 133/34 L Pulse Oximetry 94 Oxygen Delivery 07/03/25 09:40 07/03/25 09:40 Temperature 101.6 F H Pulse Rate Respiratory Rate Blood Pressure Pulse Oximetry Oxygen Delivery Room Air Intake/Output Intake/Output: Intake & Output 06/30/25 07/01/25 07/02/25 07/03/25 23:59 23:59 23:59 23:59 Intake Total 4945 086 5772 50 Output Total 1150 5150 2900 575 Balance 220 -4650 -1705 -525 Meds/Results Medications: Active Medications Generic Name Dose Route Start Last Admin Trade Name Freq PRN Reason Stop Dose Admin Acetaminophen 650 mg 06/27/25 01:12 07/03/25 09:40 Acetaminophen 325 Mg Tablet PO 650 mg Q4H PRN Administration Mild Pain (1-3) or Fever Hydrocodone Bitart/Acetaminophen 1 tab 07/01/25 21:32 07/02/25 15:08 Hydrocodone/Acetaminophen (*Crx) 5-325 Mg Tablet PO 1 tab Q4H PRN Administration Pain Rated 4-6 Calcium Carbonate 200 mg 06/27/25 11:32 Calcium Carbonate (Tums) 500 Mg (200 Mg Elemental) PO Q6H PRN Indigestion Docusate Sodium 100 mg 06/30/25 10:49 07/03/25 09:42 Docusate Sodium 100 Mg Capsule PO 100 mg Q12H PRN Administration Constipation Fentanyl Citrate 25 mcg 07/01/25 14:44 07/01/25 15:32 Fentanyl Citrate Inj (*Crx) 100 Mcg/2 Ml Vial IV PUSH 25 mcg Q2M PRN Administration Pain Hydromorphone HCl 0.5 mg 06/27/25 01:12 Hydromorphone Hcl Inj (*Crx) 1 Mg/Ml Syr IV PUSH Q4H PRN Pain Rated 7-10 Ceftriaxone Sodium 1 gm/ 50 mls @ 100 mls/hr 06/28/25 04:00 07/03/25 04:52 Sodium Chloride IVPB Infused Q24H ELISA Infusion Ondansetron HCl 4 mg 06/27/25 01:12 Ondansetron Inj 4 Mg/2 Ml Vial IV PUSH Q4H PRN Nausea Ondansetron HCl 4 mg 07/01/25 14:44 Ondansetron Inj 4 Mg/2 Ml Vial IV PUSH ONCE PRN Nausea Polyethylene Glycol 17 gm 06/30/25 10:53 07/03/25 09:43 Polyethylene Glycol 3350 17 Gm Powd.Pack PO 17 gm QAM PRN Administration Constipation Solifenacin 5 mg 07/02/25 09:00 07/03/25 09:42 Solifenacin 5 Mg Tablet PO 5 mg QAM ELISA Administration Radiology Results: ITS Impressions Chest X-Ray 06/26/25 18:12 IMPRESSION: 1. Abdomen/Pelvis CTA 06/27/25 06:48 IMPRESSION: 1. Mild pulmonary edema with small pleural effusions. 2. Cirrhosis of the liver. 3. Small volume of ascites. 4. Bladder mass suspicious for urothelial carcinoma. Hematoma in the bladder. 5. Wall thickening of the rectum, consistent with proctitis. Abdomen/Pelvis CT 07/03/25 07:19 IMPRESSION: 1. Highly worrisome for urinary bladder perforation. Pelvis CT 07/03/25 08:51 IMPRESSION: Defect within the bladder wall detailed above with extravesicular contrast. Labs Labs: Laboratory Results - last 24 hr 07/03/25 07/03/25 07/03/25 06:19 06:49 10:07 WBC RBC Hgb Hct MCV MCH MCHC RDW Plt Count MPV Immature Gran % (Auto) Neut % (Auto) Lymph % (Auto) [place] % (Auto) Eos % (Auto) Baso % (Auto) Lymph # (Auto) [place] # (Auto) Eos # (Auto) Baso # (Auto) Abs Immat Gran (auto) Absolute Neuts (auto) Absolute Nucleated RBC Band Neutrophils % Nucleated RBC % Platelet Estimate % Immature Plt Fraction Hypochromasia Anisocytosis Tear Drop Cells Ovalocytes José Luis Cells Schistocytes Sodium 129 L Potassium 4.3 Chloride 107 Carbon Dioxide 21 L Anion Gap 1 L BUN 16 Creatinine 0.72 Estim Creat Clear Calc Not Reportable Estimated GFR > 60 Glucose 182 H Lactic Acid 1.1 Calcium 7.4 L Total Bilirubin 1.0 AST 31 ALT 15 Alkaline Phosphatase 62 Total Protein 5.1 L Albumin 2.4 L Procalcitonin 1.0 Urine Color Yellow Urine Appearance Cloudy H Urine pH 5.5 Ur Specific [place] 1.020 Urine Protein 2+ H Urine Glucose (UA) Negative Urine Ketones Negative Ur Blood (Man) 3+ H Urine Nitrate Negative Urine Bilirubin Negative Urine Urobilinogen 0.2 Add Ur Microanalysis Reviewed Leukocyte Esterase Rfl 2+ H Urine RBC >100 H Urine WBC 21-50 H Ur Squamous Epith Cells None seen Urine Bacteria None seen Urine Casts 6-10 07/03/25 11:29 WBC 7.6 RBC 2.87 L Hgb 7.4 L Hct 24.1 L MCV 84.0 MCH 25.8 L MCHC 30.7 L RDW 22.9 H Plt Count 52 L MPV TNP Immature Gran % (Auto) 0.5 Neut % (Auto) 91.5 H Lymph % (Auto) 6.8 L [place] % (Auto) 0.8 L Eos % (Auto) 0.1 Baso % (Auto) 0.3 Lymph # (Auto) 0.51 L [place] # (Auto) 0.1 Eos # (Auto) 0.0 Baso # (Auto) 0.0 Abs Immat Gran (auto) 0.04 H Absolute Neuts (auto) 6.9 H Absolute Nucleated RBC 0.000 Band Neutrophils % Not Reportable Nucleated RBC % 0.0 Platelet Estimate Decreased % Immature Plt Fraction 4.3 Hypochromasia 1+ Anisocytosis 2+ Tear Drop Cells Occasional Ovalocytes 1+ José Luis Cells Occasional Schistocytes Rare Sodium Potassium Chloride Carbon Dioxide Anion Gap BUN Creatinine Estim Creat Clear Calc Estimated GFR Glucose Lactic Acid Calcium Total Bilirubin AST ALT Alkaline Phosphatase Total Protein Albumin Procalcitonin Urine Color Urine Appearance Urine pH Ur Specific [place] Urine Protein Urine Glucose (UA) Urine Ketones Ur Blood (Man) Urine Nitrate Urine Bilirubin Urine Urobilinogen Add Ur Microanalysis Leukocyte Esterase Rfl Urine RBC Urine WBC Ur Squamous Epith Cells Urine Bacteria Urine Casts
[2025-07-03] MEDS: HYDROcodone/acetaminophen (*CRX) 5-325 MG TABLET 1 TAB PO (13:26)
[2025-07-03] MEDS: HYDROmorphone HCL INJ (*CRX) 1 MG/ML SYR 0.5 MG IV PUSH (20:45)
[2025-07-04] VITALS (13 sets, daily range): BP systolic 103–113; BP diastolic 39–55; PULSE 72–97; RESP 12–18; TEMP 36.3–38.9; O2SAT 95–100
[2025-07-04] MEDS: cefTRIAXone 1 GM in SODIUM CHLORIDE 0.9% IV 50 ML 100 ML IVPB (03:04)
[2025-07-04] MEDS: ACETAMINOPHEN 500 MG TABLET 1000 MG PO ×2 (05:50→18:05)
[2025-07-04] MEDS: HYDROcodone/acetaminophen (*CRX) 5-325 MG TABLET 1 TAB PO ×2 (06:51→13:56)
[2025-07-04] MEDS: SOLIFENACIN 5 MG TABLET PO (09:10)
--- NOTE | 2025-07-04 12:08 | WPDUROPN2 ---
Progress Note: A&P Assessment and Plan (1) Bladder mass: Code(s): N32.89 - Other specified disorders of bladder Status: Acute Assessment and Plan: Small extraperitoneal bladder perforation noted on CT Cystogram this morning--maintain catheter, typically for two weeks with repeat cystogram prior to trial of void. Unclear etiology of fevers, could be of urinary source. No significant atelectasis noted on CXR, however recommend starting incentive spirometry. Consider broadening antibiotic coverage, cultures are pending. Consider mIVF. Subjective Subjective Date/Time Seen: 07/04/25 12:08 Interval history: 07/04/2025: NAEO, Tm 89F, patient reports improvement in pain. Review of Systems Review of Systems: All systems reviewed & are unremarkable except as noted in HPI and below Exam Narrative: NAD, A&Ox4 RRR eWOB S/ND, minimal TTP in LLQ. No Rebound tenderness or signs of peritonitis. Catheter with bob colored urine. Objective Data Vital Signs Vital Signs: Vital Signs - 24 hr 07/03/25 12:15 07/03/25 12:30 07/03/25 12:45 Temperature Pulse Rate 100 83 83 Respiratory Rate Blood Pressure Pulse Oximetry Oxygen Delivery 07/03/25 12:51 07/03/25 13:00 07/03/25 13:15 Temperature 100.3 F H Pulse Rate 85 82 Respiratory Rate Blood Pressure Pulse Oximetry Oxygen Delivery 07/03/25 13:30 07/03/25 13:45 07/03/25 14:00 Temperature Pulse Rate 79 87 88 Respiratory Rate Blood Pressure Pulse Oximetry Oxygen Delivery 07/03/25 14:16 07/03/25 14:30 07/03/25 14:45 Temperature Pulse Rate 85 83 84 Respiratory Rate Blood Pressure Pulse Oximetry Oxygen Delivery 07/03/25 14:51 07/03/25 16:00 07/03/25 20:00 Temperature 98.8 F Pulse Rate 84 82 Respiratory Rate 15 Blood Pressure 114/40 L Pulse Oximetry 97 Oxygen Delivery Room Air 07/03/25 20:00 07/03/25 21:48 07/04/25 00:00 Temperature 99.0 F Pulse Rate 78 92 85 Respiratory Rate 16 Blood Pressure 122/39 L Pulse Oximetry 99 Oxygen Delivery 07/04/25 04:00 07/04/25 05:49 07/04/25 05:50 Temperature 102.0 F H 102.0 F H Pulse Rate 89 97 Respiratory Rate 12 Blood Pressure 113/40 L Pulse Oximetry 100 Oxygen Delivery 07/04/25 06:51 Temperature 99.1 F Pulse Rate Respiratory Rate Blood Pressure Pulse Oximetry Oxygen Delivery Intake/Output Intake/Output: Intake & Output 07/01/25 07/02/25 07/03/25 07/04/25 23:59 23:59 23:59 23:59 Intake Total 500 1195 530 170 Output Total 5150 2900 875 275 [facility] -4650 -1705 -345 -105 Meds/Results Medications: Active Medications Generic Name Dose Route Start Last Admin Trade Name Freq PRN Reason Stop Dose Admin Acetaminophen 1,000 mg 07/03/25 12:52 07/04/25 05:50 Acetaminophen 500 Mg Tablet PO 1,000 mg Q6H PRN Administration Mild Pain (1-3) or Fever Hydrocodone Bitart/Acetaminophen 1 tab 07/01/25 21:32 07/04/25 06:51 Hydrocodone/Acetaminophen (*Crx) 5-325 Mg Tablet PO 1 tab Q4H PRN Administration Pain Rated 4-6 Calcium Carbonate 200 mg 06/27/25 11:32 Calcium Carbonate (Tums) 500 Mg (200 Mg Elemental) PO Q6H PRN Indigestion Docusate Sodium 100 mg 06/30/25 10:49 07/03/25 09:42 Docusate Sodium 100 Mg Capsule PO 100 mg Q12H PRN Administration Constipation Fentanyl Citrate 25 mcg 07/01/25 14:44 07/01/25 15:32 Fentanyl Citrate Inj (*Crx) 100 Mcg/2 Ml Vial IV PUSH 25 mcg Q2M PRN Administration Pain Hydromorphone HCl 0.5 mg 06/27/25 01:12 07/03/25 20:45 Hydromorphone Hcl Inj (*Crx) 1 Mg/Ml Syr IV PUSH 0.5 mg Q4H PRN Administration Pain Rated 7-10 Ceftriaxone Sodium 1 gm/ 50 mls @ 100 mls/hr 06/28/25 04:00 07/04/25 03:34 Sodium Chloride IVPB Infused Q24H ELISA Infusion Ondansetron HCl 4 mg 06/27/25 01:12 Ondansetron Inj 4 Mg/2 Ml Vial IV PUSH Q4H PRN Nausea Ondansetron HCl 4 mg 07/01/25 14:44 Ondansetron Inj 4 Mg/2 Ml Vial IV PUSH ONCE PRN Nausea Polyethylene Glycol 17 gm 06/30/25 10:53 07/03/25 09:43 Polyethylene Glycol 3350 17 Gm Powd.Pack PO 17 gm QAM PRN Administration Constipation Solifenacin 5 mg 07/02/25 09:00 07/04/25 09:10 Solifenacin 5 Mg Tablet PO 5 mg QAM ELISA Administration Radiology Results: ITS Impressions Chest X-Ray 06/26/25 18:12 IMPRESSION: 1. Abdomen/Pelvis CTA 06/27/25 06:48 IMPRESSION: 1. Mild pulmonary edema with small pleural effusions. 2. Cirrhosis of the liver. 3. Small volume of ascites. 4. Bladder mass suspicious for urothelial carcinoma. Hematoma in the bladder. 5. Wall thickening of the rectum, consistent with proctitis. Abdomen/Pelvis CT 07/03/25 07:19 IMPRESSION: 1. Highly worrisome for urinary bladder perforation. Pelvis CT 07/03/25 08:51 IMPRESSION: Defect within the bladder wall detailed above with extravesicular contrast.
--- NOTE | 2025-07-04 13:13 | P.PNIM_ITS ---
Progress Note: A&P Assessment and Plan (1) Hematuria: Code(s): R31.9 - Hematuria, unspecified Status: Acute Assessment and Plan: Likely 2/2 bladder mass as seen on CT with hematoma in the bladder Hgb 3.1 on admission s/p 3 unit prbc transfused with adequate response Hgb 6.7 on 06/29 and again received 1 unit prbc transfusion with adequate response -the patient has not been on any blood thinners. -continue to monitor H/H, has since been stable - urology consulted s/p for cysto, TURBT with Dr. Escoto on 07/[address] 07/02 -POD 1 cysto, TURBT with Dr. Escoto CBI d/c, urine is yellow urology following hg stable 07/03 hg/hct 8.3/27.[address] ordered. Pancultured 07/04:-CT abdomen followed by CT urogram consistent with bladder wall perforation. (2) Urinary tract infection: Qualifiers: Hematuria presence: with hematuria Urinary tract infection type: acute cystitis Qualified Code(s): N30.01 - Acute cystitis with hematuria Code(s): N39.0 - Urinary tract infection, site not specified Status: Inactive Assessment and Plan: - UC: ecoli pansensitive - previous micro reviewed 06/17/24: klebsiella pneumoniae - started on rocephin on 06/28 07/02- urine culture growing e coli, continue antibiotic 07/03 spiked fever this am, VS stable. Urine/c/s and BC collected. pelvic CT ordered [address] reviewed. Will broaden antibiotics (3) Bladder mass: Code(s): N32.89 - Other specified disorders of bladder Status: Acute Assessment and Plan: Abdomen/pelvis CTA showed bladder mass suspicious for urothelial carcinoma - Urology consulted s/p for cysto, TURBT and Gemcitabine 2gm administered through the catheter/into the bladder with DR. Escoto on 07/01 maintain garcía catheter for urinary diversion (4) Obstructive sleep apnea: Code(s): G47.33 - Obstructive sleep apnea (adult) (pediatric) Status: Acute Assessment and Plan: -continue CPAP as per home settings. (5) Elevated blood sugar: Code(s): R73.9 - Hyperglycemia, unspecified Status: Acute Assessment and Plan: -the patient had an elevated blood sugar on admission - A1c 6.3 on 06/27/25 Reviewed glucose and remains stable. (6) Postoperative perforation of urinary bladder: Code(s): N99.89 - Other postprocedural complications and disorders of genitourinary system; S37.29XA - Other injury of bladder, initial encounter Status: Acute Assessment and Plan: Postoperative bladder wall perforation noted on CT Planned expectant management with small size Maintain catheter Continue to monitor (7) Cirrhosis: Code(s): K74.60 - Unspecified cirrhosis of liver Status: Acute Assessment and Plan: As noted on CT Plan Thrombocytopenia acute on chronic 103 on 06/2024. Hyponatremia Iron deficiency with low ferritin and% desaturation Subjective Date/time seen: 07/04/25 13:13 Interval history: Intermittent spikes of fever noted. Abdominal pain still persists but better. No nausea vomiting. CT findings reviewed Review of Systems Review of Systems: All systems reviewed & are unremarkable except as noted in HPI and below Exam Narrative: General: female in no acute respiratory distress who is nontoxic appearing, resting in bed HEENT: Normocephalic. Atraumatic. Extraocular movement intact. Sclera clear and anicteric.No facial asymmetry. Chest: Lungs are clear to auscultation bilaterally. No wheezes or crackles. CV: Heart was regular rate and rhythm. : garcía in situ with yellow urine in bag Abd: Abdomen was soft. Nontender. Nondistended. Positive bowel sounds. Ext: No clubbing, cyanosis, or edema. DP pulses bilaterally. Neuro: Patient is alert. Speech is clear. Objective Data Vital Signs Vital Signs: Vital Signs - 24 hr 07/03/25 13:15 07/03/25 13:30 07/03/25 13:45 Temperature Pulse Rate 82 79 87 Respiratory Rate Blood Pressure Pulse Oximetry Oxygen Delivery 07/03/25 14:00 07/03/25 14:16 07/03/25 14:30 Temperature Pulse Rate 88 85 83 Respiratory Rate Blood Pressure Pulse Oximetry Oxygen Delivery 07/03/25 14:45 07/03/25 14:51 07/03/25 16:00 Temperature 98.8 F Pulse Rate 84 84 82 Respiratory Rate 15 Blood Pressure 114/40 L Pulse Oximetry 97 Oxygen Delivery 07/03/25 20:00 07/03/25 20:00 07/03/25 21:48 Temperature 99.0 F Pulse Rate 78 92 Respiratory Rate 16 Blood Pressure 122/39 L Pulse Oximetry 99 Oxygen Delivery Room Air 07/04/25 00:00 07/04/25 04:00 07/04/25 05:49 Temperature 102.0 F H Pulse Rate 85 89 97 Respiratory Rate 12 Blood Pressure 113/40 L Pulse Oximetry 100 Oxygen Delivery 07/04/25 05:50 07/04/25 06:51 07/04/25 08:00 Temperature 102.0 F H 99.1 F Pulse Rate 91 Respiratory Rate Blood Pressure Pulse Oximetry Oxygen Delivery 07/04/25 12:00 Temperature Pulse Rate 72 Respiratory Rate Blood Pressure Pulse Oximetry Oxygen Delivery Intake/Output Intake/Output: Intake & Output 07/01/25 07/02/25 07/03/25 07/04/25 23:59 23:59 23:59 23:59 Intake Total 500 1195 530 170 Output Total 5150 2900 875 275 [facility] -[id number] -[phone] -[phone] -105 Meds/Results Medications: Active Medications Generic Name Dose Route Start Last Admin Trade Name Freq PRN Reason Stop Dose Admin Acetaminophen 1,000 mg 07/03/25 12:52 07/04/25 05:50 Acetaminophen 500 Mg Tablet PO 1,000 mg Q6H PRN Administration Mild Pain (1-3) or Fever Hydrocodone Bitart/Acetaminophen 1 tab 07/01/25 21:32 07/04/25 06:51 Hydrocodone/Acetaminophen (*Crx) 5-325 Mg Tablet PO 1 tab Q4H PRN Administration Pain Rated 4-6 Calcium Carbonate 200 mg 06/27/25 11:32 Calcium Carbonate (Tums) 500 Mg (200 Mg Elemental) PO Q6H PRN Indigestion Docusate Sodium 100 mg 06/30/25 10:49 07/03/25 09:42 Docusate Sodium 100 Mg Capsule PO 100 mg Q12H PRN Administration Constipation Fentanyl Citrate 25 mcg 07/01/25 14:44 07/01/25 15:32 Fentanyl Citrate Inj (*Crx) 100 Mcg/2 Ml Vial IV PUSH 25 mcg Q2M PRN Administration Pain Hydromorphone HCl 0.5 mg 06/27/25 01:12 07/03/25 20:45 Hydromorphone Hcl Inj (*Crx) 1 Mg/Ml Syr IV PUSH 0.5 mg Q4H PRN Administration Pain Rated 7-10 Ceftriaxone Sodium 1 gm/ 50 mls @ 100 mls/hr 06/28/25 04:00 07/04/25 03:34 Sodium Chloride IVPB Infused Q24H ELISA Infusion Ondansetron HCl 4 mg 06/27/25 01:12 Ondansetron Inj 4 Mg/2 Ml Vial IV PUSH Q4H PRN Nausea Ondansetron HCl 4 mg 07/01/25 14:44 Ondansetron Inj 4 Mg/2 Ml Vial IV PUSH ONCE PRN Nausea Polyethylene Glycol 17 gm 06/30/25 10:53 07/03/25 09:43 Polyethylene Glycol 3350 17 Gm Powd.Pack PO 17 gm QAM PRN Administration Constipation Solifenacin 5 mg 07/02/25 09:00 07/04/25 09:10 Solifenacin 5 Mg Tablet PO 5 mg QAM ELISA Administration Radiology Results: ITS Impressions Chest X-Ray 06/26/25 18:12 IMPRESSION: 1. Abdomen/Pelvis CTA 06/27/25 06:48 IMPRESSION: 1. Mild pulmonary edema with small pleural effusions. 2. Cirrhosis of the liver. 3. Small volume of ascites. 4. Bladder mass suspicious for urothelial carcinoma. Hematoma in the bladder. 5. Wall thickening of the rectum, consistent with proctitis. Abdomen/Pelvis CT 07/03/25 07:19 IMPRESSION: 1. Highly worrisome for urinary bladder perforation. Pelvis CT 07/03/25 08:51 IMPRESSION: Defect within the bladder wall detailed above with extravesicular contrast.
[2025-07-04] MEDS: MEROPENEM 1 GM in SODIUM CHLORIDE 0.9% IV 100 ML 200 ML IVPB ×2 (13:48→21:13)
[2025-07-04] MEDS: SODIUM CHLORIDE 0.9% IV 1,000 ML 75 ML IV CONT (13:48)
[2025-07-04] MEDS: VANCOMYCIN 2,000 MG/NS 500 ML 2,000 MG/500 ML BAG 250 MG IVPB (15:34)
[2025-07-05] VITALS (11 sets, daily range): BP systolic 118–129; BP diastolic 38–53; PULSE 67–85; RESP 16–24; TEMP 36.6–36.8; O2SAT 94–100
[2025-07-05 05:42] LABS: Hematocrit 24.6 % (37.0-47.0); Hemoglobin 7.1 g/dL (12.0-15.0); Immature Granulocyte Percent A 1.0 % (0-0.5); Immature Platelet Fraction Pct 5.9 % (0.9-11.2); Lymphocytes Absolute Auto 0.51 K/mm3 (0.9-3.2); Mean Corpuscular HGB Conc 28.9 g/dl (32-36); Mean Corpuscular Hemoglobin 25.2 pg (26-34); Mean Corpuscular Volume 87.2 fl (80-100); Nucleated Red Blood Cells Absolute Auto 0.000 K/mm3 (0.0-0.012); Nucleated Red Blood Cells Perc 0.0 % (0.0-0.2); Platelet Count Result 58 k/mm3 (150-375); Red Blood Count 2.82 M/mm3 (4.2-5.4); White Blood Count 4.9 K/mm3 (4.5-10.0)
[2025-07-05] MEDS: MEROPENEM 1 GM in SODIUM CHLORIDE 0.9% IV 100 ML 200 ML IVPB ×3 (05:45→21:21)
[2025-07-05] MEDS: SODIUM CHLORIDE 0.9% IV 1,000 ML 75 ML IV CONT ×2 (05:48→21:21)
[2025-07-05 06:08] LABS: Alanine Aminotransferase 23 U/L (6-35); Albumin Level 2.3 g/dL (3.5-5.1); Alkaline Phosphatase 97 U/L (38-126); Anion Gap 1 mmol/L (4-12); Aspartate Amino Transferase 39 U/L (14-36); Bilirubin,Total 0.9 mg/dL (0.2-1.3); Blood Urea Nitrogen 24 mg/dL (7-17); Calcium 7.5 mg/dL (8.4-10.2); Carbon Dioxide 22 mmol/L (22-30); Chloride 105 mmol/L (98-107); Estimated Glomerular Filt Rate 49; Glucose 142 mg/dL (65-110); Magnesium 2.3 mg/dL (1.6-2.3); Potassium 4.6 mmol/L (3.4-5.0); Sodium 128 mmol/L (137-145); Total Protein 5.1 g/dL (6.3-8.2)
[2025-07-05 06:10] LABS: Anisocytosis 2+; Schistocytes Rare
[2025-07-05 06:11] LABS: Crenated RBC 1+
--- NOTE | 2025-07-05 08:01 | P.PNUR_ITS ---
Progress Note: A&P Assessment and Plan (1) Postoperative perforation of urinary bladder: Code(s): N99.89 - Other postprocedural complications and disorders of genitourinary system; S37.29XA - Other injury of bladder, initial encounter Status: Acute Plan POD 4 sp TURBT with hyponatremia and diminished UOP concerning for progression of bladder perforation; repeat CT cystogram shows persistent small extraperitoneal bladder perforation, pelvic ascites. Continue garcía catheter 2 weeks post operatively, repeat CT cystogram at that time, remove if leak resolved. Await urine culture results, continue empiric antibiotics Consider Nephrology consult for evaluation and management of hyponatremia. Subjective Subjective Date/Time Seen: 07/05/25 08:01 Interval history: Ms. Desir is POD 4 status post TURBT, extraperitoneal bladder leak noted 07/03. >1500cc positive fluid balance and hyponatremia concerning for progression of perforation, urine absorption. She reports lower abdominal pain,no nausea or vomiting, afebrile overnight. Review of Systems Constitutional: Comments: No fever Exam Const: General: comfortable and no acute distress HENMT: Face/Nose/Sinus: Normal nares present Eyes: General: appearance normal, both eyes and all related structures Sclera: sclerae normal Resp: Effort & Inspection: normal respiratory effort GI: GI Palp: Yes Soft to palpation (SPT tenderness, no guarding or rebound tenderness) : Other: SPT tenderness Skin: General skin exam: normal color Objective Data Vital Signs Vital Signs: Vital Signs - 24 hr 07/04/25 09:10 07/04/25 09:30 07/04/25 12:00 Temperature 36.6 C Pulse Rate 72 Respiratory Rate Blood Pressure Pulse Oximetry Oxygen Delivery Room Air 07/04/25 14:53 07/04/25 18:05 07/04/25 19:41 Temperature 36.3 C L 37.6 C 36.7 C Pulse Rate 76 84 Respiratory Rate 16 18 Blood Pressure 108/39 L 103/55 L Pulse Oximetry 100 100 Oxygen Delivery 07/04/25 20:00 07/04/25 23:30 07/05/25 00:00 Temperature Pulse Rate 83 73 78 Respiratory Rate 17 Blood Pressure Pulse Oximetry 95 Oxygen Delivery CPAP 07/05/25 04:00 07/05/25 04:31 07/05/25 05:06 Temperature 36.6 C Pulse Rate 74 67 76 Respiratory Rate 18 16 Blood Pressure 118/53 L Pulse Oximetry 95 100 Oxygen Delivery CPAP Intake/Output Intake/Output: Intake & Output 07/02/25 07/03/25 07/04/25 07/05/25 23:59 23:59 23:59 23:59 Intake Total 2915 750 0768 1100 Output Total 2900 875 525 300 Balance -1705 -345 525 800 Meds/Results Medications: Active Medications Generic Name Dose Route Start Last Admin Trade Name Freq PRN Reason Stop Dose Admin Acetaminophen 1,000 mg 07/03/25 12:52 07/04/25 18:05 Acetaminophen 500 Mg Tablet PO 1,000 mg Q6H PRN Administration Mild Pain (1-3) or Fever Hydrocodone Bitart/Acetaminophen 1 tab 07/01/25 21:32 07/04/25 13:56 Hydrocodone/Acetaminophen (*Crx) 5-325 Mg Tablet PO 1 tab Q4H PRN Administration Pain Rated 4-6 Calcium Carbonate 200 mg 06/27/25 11:32 Calcium Carbonate (Tums) 500 Mg (200 Mg Elemental) PO Q6H PRN Indigestion Docusate Sodium 100 mg 06/30/25 10:49 07/03/25 09:42 Docusate Sodium 100 Mg Capsule PO 100 mg Q12H PRN Administration Constipation Fentanyl Citrate 25 mcg 07/01/25 14:44 07/01/25 15:32 Fentanyl Citrate Inj (*Crx) 100 Mcg/2 Ml Vial IV PUSH 25 mcg Q2M PRN Administration Pain Hydromorphone HCl 0.5 mg 06/27/25 01:12 07/03/25 20:45 Hydromorphone Hcl Inj (*Crx) 1 Mg/Ml Syr IV PUSH 0.5 mg Q4H PRN Administration Pain Rated 7-10 Sodium Chloride 1,000 mls @ 75 mls/hr 07/04/25 13:25 07/05/25 05:48 Normal Saline Iv IV CONT 75 mls/hr .[id number] ELISA Administration Meropenem 1 gm/ Sodium 100 mls @ 200 mls/hr 07/04/25 14:00 07/05/25 05:45 Chloride IVPB 200 mls/hr Q8HR ELISA Administration Vancomycin HCl 1,500 mg in 500 mls @ 250 mls/hr 07/06/25 03:00 Vancomycin 1,500 Mg/Ns 500 Ml IVPB Q36H ELISA Ondansetron HCl 4 mg 06/27/25 01:12 Ondansetron Inj 4 Mg/2 Ml Vial IV PUSH Q4H PRN Nausea Ondansetron HCl 4 mg 07/01/25 14:44 Ondansetron Inj 4 Mg/2 Ml Vial IV PUSH ONCE PRN Nausea Polyethylene Glycol 17 gm 06/30/25 10:53 07/03/25 09:43 Polyethylene Glycol 3350 17 Gm Powd.Pack PO 17 gm QAM PRN Administration Constipation Solifenacin 5 mg 07/02/25 09:00 07/04/25 09:10 Solifenacin 5 Mg Tablet PO 5 mg QAM ELISA Administration Radiology Results: ITS Impressions Chest X-Ray 06/26/25 18:12 IMPRESSION: 1. Abdomen/Pelvis CTA 06/27/25 06:48 IMPRESSION: 1. Mild pulmonary edema with small pleural effusions. 2. Cirrhosis of the liver. 3. Small volume of ascites. 4. Bladder mass suspicious for urothelial carcinoma. Hematoma in the bladder. 5. Wall thickening of the rectum, consistent with proctitis. Abdomen/Pelvis CT 07/03/25 07:19 IMPRESSION: 1. Highly worrisome for urinary bladder perforation. Pelvis CT 07/03/25 08:51 IMPRESSION: Defect within the bladder wall detailed above with extravesicular contrast. Labs Labs: Laboratory Results - last 24 hr 07/04/25 07/04/25 07/05/25 18:21 23:35 05:26 WBC 4.9 RBC 2.82 L Hgb 7.1 L Hct 24.6 L MCV 87.2 MCH 25.2 L MCHC 28.9 L RDW 22.6 H Plt Count 58 L MPV 10.8 H Immature Gran % (Auto) 1.0 H Neut % (Auto) 84.6 H Lymph % (Auto) 10.4 L [place] % (Auto) 2.0 L Eos % (Auto) 1.6 Baso % (Auto) 0.4 Lymph # (Auto) 0.51 L [place] # (Auto) 0.1 Eos # (Auto) 0.1 Baso # (Auto) 0.0 Abs Immat Gran (auto) 0.05 H Absolute Neuts (auto) 4.2 Absolute Nucleated RBC 0.000 Band Neutrophils % Not Reportable Nucleated RBC % 0.0 Platelet Estimate Decreased % Immature Plt Fraction 5.9 Anisocytosis 2+ Crenated Cell 1+ Schistocytes Rare Sodium 128 L Potassium 4.6 Chloride 105 Carbon Dioxide 22 Anion Gap 1 L BUN 24 H Creatinine 1.09 H Estim Creat Clear Calc Not Reportable Estimated GFR 49 L Glucose 142 H POC Capillary Glucose 165 H 157 H Calcium 7.5 L Magnesium 2.3 Total Bilirubin 0.9 AST 39 H ALT 23 Alkaline Phosphatase 97 Total Protein 5.1 L Albumin 2.3 L 07/05/25 05:36 WBC RBC Hgb Hct MCV MCH MCHC RDW Plt Count MPV Immature Gran % (Auto) Neut % (Auto) Lymph % (Auto) [place] % (Auto) Eos % (Auto) Baso % (Auto) Lymph # (Auto) [place] # (Auto) Eos # (Auto) Baso # (Auto) Abs Immat Gran (auto) Absolute Neuts (auto) Absolute Nucleated RBC Band Neutrophils % Nucleated RBC % Platelet Estimate % Immature Plt Fraction Anisocytosis Crenated Cell Schistocytes Sodium Potassium Chloride Carbon Dioxide Anion Gap BUN Creatinine Estim Creat Clear Calc Estimated GFR Glucose POC Capillary Glucose 152 H Calcium Magnesium Total Bilirubin AST ALT Alkaline Phosphatase Total Protein Albumin
[2025-07-05] MEDS: HYDROcodone/acetaminophen (*CRX) 5-325 MG TABLET 1 TAB PO (08:18)
[2025-07-05] MEDS: SOLIFENACIN 5 MG TABLET PO (08:18)
--- NOTE | 2025-07-05 12:23 | P.PNIM_ITS ---
Progress Note: A&P Assessment and Plan (1) Hematuria: Code(s): R31.9 - Hematuria, unspecified Status: Acute Assessment and Plan: Likely 2/2 bladder mass as seen on CT with hematoma in the bladder Hgb 3.1 on admission s/p 3 unit prbc transfused with adequate response Hgb 6.7 on 06/29 and again received 1 unit prbc transfusion with adequate response -the patient has not been on any blood thinners. -continue to monitor H/H, has since been stable - urology consulted s/p for cysto, TURBT with Dr. Escoto on 07/[address] 07/02 -POD 1 cysto, TURBT with Dr. Escoto CBI d/c, urine is yellow urology following hg stable 07/03 hg/hct 8.3/27.[address] ordered. Pancultured 07/04:-CT abdomen followed by CT urogram consistent with bladder wall perforation. Repeat urogram per urology that redemonstration of bladder leak. (2) Urinary tract infection: Qualifiers: Hematuria presence: with hematuria Urinary tract infection type: acute cystitis Qualified Code(s): N30.01 - Acute cystitis with hematuria Code(s): N39.0 - Urinary tract infection, site not specified Status: Inactive Assessment and Plan: - UC: ecoli pansensitive - previous micro reviewed 06/17/24: klebsiella pneumoniae - started on rocephin on 06/28 07/02- urine culture growing e coli, continue antibiotic 07/03 spiked fever this am, VS stable. Urine/c/s and BC collected. pelvic CT ordered [address] reviewed. Will broaden antibiotics with vancomycin and meropenem (3) Bladder mass: Code(s): N32.89 - Other specified disorders of bladder Status: Acute Assessment and Plan: Abdomen/pelvis CTA showed bladder mass suspicious for urothelial carcinoma - Urology consulted s/p for cysto, TURBT and Gemcitabine 2gm administered through the catheter/in to the bladder with DR. Escoto on 07/01 maintain garcía catheter for urinary diversion (4) Obstructive sleep apnea: Code(s): G47.33 - Obstructive sleep apnea (adult) (pediatric) Status: Acute Assessment and Plan: -continue CPAP as per home settings. (5) Elevated blood sugar: Code(s): R73.9 - Hyperglycemia, unspecified Status: Acute Assessment and Plan: -the patient had an elevated blood sugar on admission - A1c 6.3 on 06/27/25 Reviewed glucose and remains stable. (6) Postoperative perforation of urinary bladder: Code(s): N99.89 - Other postprocedural complications and disorders of genitourinary system; S37.29XA - Other injury of bladder, initial encounter Status: Acute Assessment and Plan: Postoperative bladder wall perforation noted on CT Planned expectant management with small size Maintain catheter Continue to monitor (7) Cirrhosis: Code(s): K74.60 - Unspecified cirrhosis of liver Status: Acute Assessment and Plan: As noted on CT This never been worked up in the past per patient Will check hepatitis profile Does have significant history of alcohol use in the past. Never had EGD performed Plan Thrombocytopenia acute on chronic 103 on 06/2024. Hyponatremia mild continue to monitor Iron deficiency with low ferritin and % desaturation no EGD in the past. Colonoscopy more than 10 years ago. Will give IV Venofer. GI consult Subjective Date/time seen: 07/05/25 12:23 Interval history: Fever coming down. Labs reviewed. Discussed with patient and the family at bedside. Continues to report abdominal discomfort however improved. Review of Systems Review of Systems: All systems reviewed & are unremarkable except as noted in HPI and below Exam Narrative: General: female in no acute respiratory distress who is nontoxic appearing, resting in bed HEENT: Normocephalic. Atraumatic. Extraocular movement intact. Sclera clear and anicteric.No facial asymmetry. Chest: Lungs are clear to auscultation bilaterally. No wheezes or crackles. CV: Heart was regular rate and rhythm. : garcía in situ with yellow urine in bag Abd: Abdomen was soft. Tender lower abdomen Nondistended. Positive bowel sounds. No rebound Ext: No clubbing, cyanosis, or edema. DP pulses bilaterally. Neuro: Patient is alert. Speech is clear. Objective Data Vital Signs Vital Signs: Vital Signs - 24 hr 07/04/25 14:53 07/04/25 18:05 07/04/25 19:41 Temperature 97.4 F L 99.6 F 98.0 F Pulse Rate 76 84 Respiratory Rate 16 18 Blood Pressure 108/39 L 103/55 L Pulse Oximetry 100 100 Oxygen Delivery 07/04/25 20:00 07/04/25 23:30 07/05/25 00:00 Temperature Pulse Rate 83 73 78 Respiratory Rate 17 Blood Pressure Pulse Oximetry 95 Oxygen Delivery CPAP 07/05/25 04:00 07/05/25 04:31 07/05/25 05:06 Temperature 97.8 F Pulse Rate 74 67 76 Respiratory Rate 18 16 Blood Pressure 118/53 L Pulse Oximetry 95 100 Oxygen Delivery CPAP 07/05/25 08:00 07/05/25 08:00 Temperature Pulse Rate 85 Respiratory Rate Blood Pressure Pulse Oximetry Oxygen Delivery CPAP Intake/Output Intake/Output: Intake & Output 07/02/25 07/03/25 07/04/25 07/05/25 23:59 23:59 23:59 23:59 Intake Total 1414 139 4853 1100 Output Total 2900 875 525 300 Balance -1705 -345 525 800 Meds/Results Medications: Active Medications Generic Name Dose Route Start Last Admin Trade Name Freq PRN Reason Stop Dose Admin Acetaminophen 1,000 mg 07/03/25 12:52 07/04/25 18:05 Acetaminophen 500 Mg Tablet PO 1,000 mg Q6H PRN Administration Mild Pain (1-3) or Fever Hydrocodone Bitart/Acetaminophen 1 tab 07/01/25 21:32 07/05/25 08:18 Hydrocodone/Acetaminophen (*Crx) 5-325 Mg Tablet PO 1 tab Q4H PRN Administration Pain Rated 4-6 Calcium Carbonate 200 mg 06/27/25 11:32 Calcium Carbonate (Tums) 500 Mg (200 Mg Elemental) PO Q6H PRN Indigestion Docusate Sodium 100 mg 06/30/25 10:49 07/03/25 09:42 Docusate Sodium 100 Mg Capsule PO 100 mg Q12H PRN Administration Constipation Fentanyl Citrate 25 mcg 07/01/25 14:44 07/01/25 15:32 Fentanyl Citrate Inj (*Crx) 100 Mcg/2 Ml Vial IV PUSH 25 mcg Q2M PRN Administration Pain Hydromorphone HCl 0.5 mg 06/27/25 01:12 07/03/25 20:45 Hydromorphone Hcl Inj (*Crx) 1 Mg/Ml Syr IV PUSH 0.5 mg Q4H PRN Administration Pain Rated 7-10 Sodium Chloride 1,000 mls @ 75 mls/hr 07/04/25 13:25 07/05/25 05:48 Normal Saline Iv IV CONT 75 mls/hr .[id number] ELISA Administration Meropenem 1 gm/ Sodium 100 mls @ 200 mls/hr 07/04/25 14:00 07/05/25 05:45 Chloride IVPB 200 mls/hr Q8HR ELISA Administration Vancomycin HCl 1,500 mg in 500 mls @ 250 mls/hr 07/06/25 03:00 Vancomycin 1,500 Mg/Ns 500 Ml IVPB Q36H ELISA Ondansetron HCl 4 mg 06/27/25 01:12 Ondansetron Inj 4 Mg/2 Ml Vial IV PUSH Q4H PRN Nausea Ondansetron HCl 4 mg 07/01/25 14:44 Ondansetron Inj 4 Mg/2 Ml Vial IV PUSH ONCE PRN Nausea Polyethylene Glycol 17 gm 06/30/25 10:53 07/03/25 09:43 Polyethylene Glycol 3350 17 Gm Powd.Pack PO 17 gm QAM PRN Administration Constipation Solifenacin 5 mg 07/02/25 09:00 07/05/25 08:18 Solifenacin 5 Mg Tablet PO 5 mg QAM ELISA Administration Radiology Results: ITS Impressions Chest X-Ray 06/26/25 18:12 IMPRESSION: 1. Abdomen/Pelvis CTA 06/27/25 06:48 IMPRESSION: 1. Mild pulmonary edema with small pleural effusions. 2. Cirrhosis of the liver. 3. Small volume of ascites. 4. Bladder mass suspicious for urothelial carcinoma. Hematoma in the bladder. 5. Wall thickening of the rectum, consistent with proctitis. Abdomen/Pelvis CT 07/03/25 07:19 IMPRESSION: 1. Highly worrisome for urinary bladder perforation. Pelvis CT 07/05/25 10:51 IMPRESSION: 1. Small bladder leak again identified. Labs Labs: Laboratory Results - last 24 hr 07/04/25 07/04/25 07/05/25 18:21 23:35 05:26 WBC 4.9 RBC 2.82 L Hgb 7.1 L Hct 24.6 L MCV 87.2 MCH 25.2 L MCHC 28.9 L RDW 22.6 H Plt Count 58 L MPV 10.8 H Immature Gran % (Auto) 1.0 H Neut % (Auto) 84.6 H Lymph % (Auto) 10.4 L [place] % (Auto) 2.0 L Eos % (Auto) 1.6 Baso % (Auto) 0.4 Lymph # (Auto) 0.51 L [place] # (Auto) 0.1 Eos # (Auto) 0.1 Baso # (Auto) 0.0 Abs Immat Gran (auto) 0.05 H Absolute Neuts (auto) 4.2 Absolute Nucleated RBC 0.000 Band Neutrophils % Not Reportable Nucleated RBC % 0.0 Platelet Estimate Decreased % Immature Plt Fraction 5.9 Anisocytosis 2+ Crenated Cell 1+ Schistocytes Rare Sodium 128 L Potassium 4.6 Chloride 105 Carbon Dioxide 22 Anion Gap 1 L BUN 24 H Creatinine 1.09 H Estim Creat Clear Calc Not Reportable Estimated GFR 49 L Glucose 142 H POC Capillary Glucose 165 H 157 H Calcium 7.5 L Magnesium 2.3 Total Bilirubin 0.9 AST 39 H ALT 23 Alkaline Phosphatase 97 Total Protein 5.1 L Albumin 2.3 L 07/05/25 07/05/25 05:36 12:16 WBC RBC Hgb Hct MCV MCH MCHC RDW Plt Count MPV Immature Gran % (Auto) Neut % (Auto) Lymph % (Auto) [place] % (Auto) Eos % (Auto) Baso % (Auto) Lymph # (Auto) [place] # (Auto) Eos # (Auto) Baso # (Auto) Abs Immat Gran (auto) Absolute Neuts (auto) Absolute Nucleated RBC Band Neutrophils % Nucleated RBC % Platelet Estimate % Immature Plt Fraction Anisocytosis Crenated Cell Schistocytes Sodium Potassium Chloride Carbon Dioxide Anion Gap BUN Creatinine Estim Creat Clear Calc Estimated GFR Glucose POC Capillary Glucose 152 H 179 H Calcium Magnesium Total Bilirubin AST ALT Alkaline Phosphatase Total Protein Albumin
[2025-07-05 13:32] LABS: Hepatitis B Surface Antigen Negative (Negative)
[2025-07-05 13:38] LABS: HAV RESULT Negative (Negative); Hepatitis B Core IgM Result Negative (Negative)
[2025-07-05] MEDS: IRON SUCROSE COMPLEX 200 MG, IRON SUCROSE COMPLEX 100 MG in SODIUM CHLORIDE 0.9% IV 250 ML 176.67 MG IVPB (14:16)
--- NOTE | 2025-07-05 23:33 | P.CONGI_ITS ---
Assessment and Plan Assessment and plan (1) Cirrhosis: Code(s): K74.60 - Unspecified cirrhosis of liver Status: Acute Assessment and Plan: The patient's profound anemia is likely multifactorial, primarily secondary to massive hematuria from her advanced bladder carcinoma, exacerbated by her current infection related to the extraperitoneal urinary leak, with underlying cirrhosis of the liver representing a contributing factor. Her liver synthetic function is compromised, correlating to a MELD 3.0 score of 23. The immediate clinical priority is stabilization and management of the urinary leak and infection. It is critical to semi-quantify the fluid output and leakage, as the perihepatic fluid seen on CT could represent either ascitic fluid or the urinary leak itself. The current broad-spectrum antibiotic coverage with vancomycin and meropenem is appropriate; however, special attention must be paid to the 50% increase in creatinine over the last 48 hours, which may imply an evolving acute kidney injury, potentially driven by the urinary leak, infectious status, and possible hepatorenal factors. Vancomycin dosing has been appropriately adjusted for her current renal function. Regarding the workup for severe anemia, it is currently presumed to be driven by the massive hematuria from the bladder cancer. It is recognized that the patient is overdue for a colonoscopy, having had polyps noted over 10 years ago, and should technically undergo repeat surveillance colonoscopy once she is stable from her curent acute complication. -There is no need for fecal occult testing since there is no question that she will need a colonoscopy regardless of the results. GI Consult Note Consult date/time: 07/05/25 23:33 Reason for consult: anemia- finding of cirrhosis on imaging studies HPI: Barbara Desir is a 74-year-old female with a history of cervical cancer, managed non-surgically with radiotherapy and chemotherapy years ago, who was admitted on 06/26/2025 for persistent hematuria leading to severe anemia (hemoglobin 3.1). She required transfusion of 3 units of packed red blood cells. Subsequent Urology evaluation found a large bladder carcinoma on cystoscopy, which is currently being treated with local gemcitabine via urinary catheter. Her hospital course is complicated by an extraperitoneal bladder perforation with a urine leak, confirmed by CT cystogram. She developed fever and is being treated for a urinary tract infection positive for E. coli sensitive to multiple antibiotics, currently covered with vancomycin and meropenem. - The reason for consultation to our service is the finding of persistent anemia (hemoglobin 7.1) and imaging evidence of probable end-stage liver disease. Of note, the patient admits to heavy alcohol drinking during a period of more than 10 years, including beer and hard liquor. She currently drinks occasional beer and Tequila. Laboratory data (07/05) show evolving acute kidney injury with creatinine 1.09 (up from 0.72 two days ago, 50% increase), thrombocytopenia (platelet count 58), and coagulopathy (INR 1.7). Other labs are sodium 128, AST 39, ALT 23, total bilirubin 0.9, and low albumin 2.3. A CT scan reveals a small liver with a nodular aspect and perihepatic fluid, findings compatible with cirrhosis of the liver. Review of Systems 2 Review of Systems: All systems reviewed & are unremarkable except as noted in HPI and below PMFSH Past Medical History Medical History Cervical cancer Radiation and chemotherapy Obstructive sleep apnea Surgical History Surgical History History of appendectomy Hx of cholecystectomy H/O section X3 Family History Family History Mother Hypertension Father Cancer Grandparent Cancer Social History Social History Social History: She is and retired. Currently they have no form of transportation. Smoking status: Former smoker Tobacco type: cigarettes Alcohol intake: current Substance use: never Substance use type: does not use Lack of Transportation: No Lack of Food: Sometimes True Current Housing: I Have Housing Concerned About Future Housing: No Difficulty Paying Gas/Electric Bills: YES Difficulty Paying for Meds: No Currently Unemployed: No Education: High School Diploma/GED Difficulty w/ Childcare or Family Care: No Spiritual care concerns: No Meds Home Medications and Allergies Home Medications ?Medication ?Instructions ?Recorded ?Confirmed ?Type No Home Medications 06/27/25 06/27/25 H istory Allergies Allergy/AdvReac Type Severity Reaction Status Date / Time No Known Allergies Allergy Verified 07/01/25 12:17 Vital Signs Vital Signs - 24 hr 07/05/25 00:00 07/05/25 04:00 07/05/25 04:31 Temperature Pulse Rate 78 74 67 Respiratory Rate 18 Blood Pressure Pulse Oximetry 95 Oxygen Delivery CPAP 07/05/25 05:06 07/05/25 08:00 07/05/25 08:00 Temperature 97.8 F Pulse Rate 76 85 Respiratory Rate 16 Blood Pressure 118/53 L Pulse Oximetry 100 Oxygen Delivery CPAP 07/05/25 12:00 07/05/25 14:00 07/05/25 16:00 Temperature 98.3 F Pulse Rate 75 74 76 Respiratory Rate 16 Blood Pressure 129/42 L Pulse Oximetry 99 Oxygen Delivery 07/05/25 19:18 07/05/25 20:00 07/05/25 20:56 Temperature 97.9 F Pulse Rate 75 75 78 Respiratory Rate 24 H 17 Blood Pressure 121/38 L Pulse Oximetry 94 Oxygen Delivery CPAP Exam 2 Narrative: Anicteric, oriented x3, cooperative. Abdomen: Obese, vertical scar from prior cholecystectomy, bowel sounds present, soft, nontender, with mild abdominal wall edema. Rest of the exam unchanged. Results Labs 07/06/25 05:00 07/06/25 05:00 Labs: Short CBC 07/05/25 Range/Units 05:26 WBC 4.9 (4.5-10.0) K/mm3 Hgb 7.1 L (12.0-15.0) g/dL Hct 24.6 L (37.0-47.0) % Plt Count 58 L (150-375) k/mm3 BMP 07/05/25 05:26 Sodium 128 L Potassium 4.6 Chloride 105 Carbon Dioxide 22 BUN 24 H Creatinine 1.09 H Glucose 142 H Calcium 7.5 L Liver Function 07/05/25 Range/Units 05:26 Total Bilirubin 0.9 (0.2-1.3) mg/dL AST 39 H (14-36) U/L ALT 23 (6-35) U/L Alkaline Phosphatase 97 (38-126) U/L Albumin 2.3 L (3.5-5.1) g/dL
[2025-07-06] VITALS (15 sets, daily range): BP systolic 106–128; BP diastolic 25–44; PULSE 69–88; RESP 16–20; TEMP 36.3–36.9; O2SAT 96–100
[2025-07-06] MEDS: VANCOMYCIN 1,500 MG/NS 500 ML 1,500 MG/500 ML BAG 250 MG IVPB (02:10)
[2025-07-06 05:45] LABS: Hematocrit 23.7 % (37.0-47.0); Hemoglobin 7.0 g/dL (12.0-15.0); Immature Granulocyte Percent A 24.1 % (0-0.5); Immature Platelet Fraction Pct 6.6 % (0.9-11.2); Lymphocytes Absolute Auto 0.61 K/mm3 (0.9-3.2); Mean Corpuscular HGB Conc 29.5 g/dl (32-36); Mean Corpuscular Hemoglobin 25.6 pg (26-34); Mean Corpuscular Volume 86.8 fl (80-100); Nucleated Red Blood Cells Absolute Auto 0.000 K/mm3 (0.0-0.012); Nucleated Red Blood Cells Perc 0.0 % (0.0-0.2); Platelet Count Result 58 k/mm3 (150-375); Red Blood Count 2.73 M/mm3 (4.2-5.4); White Blood Count 2.9 K/mm3 (4.5-10.0)
[2025-07-06] MEDS: MEROPENEM 1 GM in SODIUM CHLORIDE 0.9% IV 100 ML 200 ML IVPB ×3 (05:53→23:40)
[2025-07-06 06:00] LABS: Alanine Aminotransferase 30 U/L (6-35); Albumin Level 2.2 g/dL (3.5-5.1); Alkaline Phosphatase 106 U/L (38-126); Anion Gap 0 mmol/L (4-12); Aspartate Amino Transferase 70 U/L (14-36); Bilirubin,Total 1.0 mg/dL (0.2-1.3); Blood Urea Nitrogen 24 mg/dL (7-17); Calcium 7.4 mg/dL (8.4-10.2); Carbon Dioxide 21 mmol/L (22-30); Chloride 106 mmol/L (98-107); Estimated Glomerular Filt Rate 59; Glucose 136 mg/dL (65-110); Magnesium 2.4 mg/dL (1.6-2.3); Potassium 4.4 mmol/L (3.4-5.0); Sodium 127 mmol/L (137-145); Total Protein 5.2 g/dL (6.3-8.2)
[2025-07-06 06:14] LABS: Anisocytosis 1+; Burr Cells 1+; Poikilocytosis 1+
[2025-07-06 06:15] LABS: Hypochromasia 2+; Ovalocytes 1+; Schistocytes None Seen
[2025-07-06] MEDS: ACETAMINOPHEN 500 MG TABLET 1000 MG PO (09:12)
[2025-07-06] MEDS: SOLIFENACIN 5 MG TABLET PO (09:12)
--- NOTE | 2025-07-06 10:34 | P.PNUR_ITS ---
Progress Note: A&P Assessment and Plan (1) Postoperative perforation of urinary bladder: Code(s): N99.89 - Other postprocedural complications and disorders of genitourinary system; S37.29XA - Other injury of bladder, initial encounter Status: Acute (2) Bladder mass: Code(s): N32.89 - Other specified disorders of bladder Status: Acute Plan POD [address]ogram 07/05: small extraperitoneal bladder perforation, pelvic ascites. Continue garcía catheter 2 weeks post operatively, repeat CT cystogram at that time, remove if leak resolved. Await urine culture results, continue empiric antibiotics Consider Nephrology consult for evaluation and management of hyponatremia. Subjective Subjective Date/Time Seen: 07/06/25 10:34 Interval history: POD 5 sp TURBT, small extraperitoneal bladder leak, feeling better today. Exam Const: General: comfortable and no acute distress Eyes: General: appearance normal, both eyes and all related structures Resp: Effort & Inspection: normal respiratory effort GI: GI Palp: Yes Soft to palpation : General: Yes bladder normal to palpation Other: SP area mildly tender to palpation Urinary Catheter: Urinary Catheter: patent and draining and urine clear Psych: Mental Status: mental status grossly normal Affect: normal affect Objective Data Vital Signs Vital Signs: Vital Signs - 24 hr 07/05/25 12:00 07/05/25 14:00 07/05/25 16:00 Temperature 36.8 C Pulse Rate 75 74 76 Respiratory Rate 16 Blood Pressure 129/42 L Pulse Oximetry 99 Oxygen Delivery 07/05/25 19:18 07/05/25 20:00 07/05/25 20:56 Temperature 36.6 C Pulse Rate 75 75 78 Respiratory Rate 24 H 17 Blood Pressure 121/38 L Pulse Oximetry 94 Oxygen Delivery CPAP 07/06/25 00:00 07/06/25 04:00 07/06/25 04:37 Temperature 36.7 C Pulse Rate 77 76 78 Respiratory Rate 20 Blood Pressure 122/44 L Pulse Oximetry 100 Oxygen Delivery Intake/Output Intake/Output: Intake & Output 07/03/25 07/04/25 07/05/25 07/06/25 23:59 23:59 23:59 23:59 Intake Total 530 1050 2640 1140 Output Total 872 731 221 400 Balance -885 594 6302 740 Meds/Results Medications: Active Medications Generic Name Dose Route Start Last Admin Trade Name Freq PRN Reason Stop Dose Admin Acetaminophen 1,000 mg 07/03/25 12:52 07/06/25 09:12 Acetaminophen 500 Mg Tablet PO 1,000 mg Q6H PRN Administration Mild Pain (1-3) or Fever Hydrocodone Bitart/Acetaminophen 1 tab 07/01/25 21:32 07/05/25 08:18 Hydrocodone/Acetaminophen (*Crx) 5-325 Mg Tablet PO 1 tab Q4H PRN Administration Pain Rated 4-6 Calcium Carbonate 200 mg 06/27/25 11:32 Calcium Carbonate (Tums) 500 Mg (200 Mg Elemental) PO Q6H PRN Indigestion Docusate Sodium 100 mg 06/30/25 10:49 07/03/25 09:42 Docusate Sodium 100 Mg Capsule PO 100 mg Q12H PRN Administration Constipation Fentanyl Citrate 25 mcg 07/01/25 14:44 07/01/25 15:32 Fentanyl Citrate Inj (*Crx) 100 Mcg/2 Ml Vial IV PUSH 25 mcg Q2M PRN Administration Pain Hydromorphone HCl 0.5 mg 06/27/25 01:12 07/03/25 20:45 Hydromorphone Hcl Inj (*Crx) 1 Mg/Ml Syr IV PUSH 0.5 mg Q4H PRN Administration Pain Rated 7-10 Sodium Chloride 1,000 mls @ 75 mls/hr 07/04/25 13:25 07/05/25 21:21 Normal Saline Iv IV CONT 75 mls/hr .[id number] ELISA Administration Meropenem 1 gm/ Sodium 100 mls @ 200 mls/hr 07/04/25 14:00 07/06/25 06:35 Chloride IVPB Infused Q8HR ELISA Infusion Vancomycin HCl 1,500 mg in 500 mls @ 250 mls/hr 07/06/25 03:00 07/06/25 04:10 Vancomycin 1,500 Mg/Ns 500 Ml IVPB Infused Q36H ELISA Infusion Ondansetron HCl 4 mg 06/27/25 01:12 Ondansetron Inj 4 Mg/2 Ml Vial IV PUSH Q4H PRN Nausea Ondansetron HCl 4 mg 07/01/25 14:44 Ondansetron Inj 4 Mg/2 Ml Vial IV PUSH ONCE PRN Nausea Polyethylene Glycol 17 gm 06/30/25 10:53 07/03/25 09:43 Polyethylene Glycol 3350 17 Gm Powd.Pack PO 17 gm QAM PRN Administration Constipation Solifenacin 5 mg 07/02/25 09:00 07/06/25 09:12 Solifenacin 5 Mg Tablet PO 5 mg QAM ELISA Administration Radiology Results: ITS Impressions Chest X-Ray 06/26/25 18:12 IMPRESSION: 1. Abdomen/Pelvis CTA 06/27/25 06:48 IMPRESSION: 1. Mild pulmonary edema with small pleural effusions. 2. Cirrhosis of the liver. 3. Small volume of ascites. 4. Bladder mass suspicious for urothelial carcinoma. Hematoma in the bladder. 5. Wall thickening of the rectum, consistent with proctitis. Abdomen/Pelvis CT 07/03/25 07:19 IMPRESSION: 1. Highly worrisome for urinary bladder perforation. Pelvis CT 07/05/25 10:51 IMPRESSION: 1. Small bladder leak again identified. Labs Labs: Laboratory Results - last 24 hr 07/05/25 07/05/25 07/05/25 05:20 12:16 16:35 WBC RBC Hgb Hct MCV MCH MCHC RDW Plt Count MPV Immature Gran % (Auto) Neut % (Auto) Lymph % (Auto) [place] % (Auto) Eos % (Auto) Baso % (Auto) Lymph # (Auto) [place] # (Auto) Eos # (Auto) Baso # (Auto) Abs Immat Gran (auto) Absolute Neuts (auto) Absolute Nucleated RBC Band Neutrophils % Nucleated RBC % Platelet Estimate % Immature Plt Fraction Hypochromasia Poikilocytosis Anisocytosis Ovalocytes [place] Cells Schistocytes Sodium Potassium Chloride Carbon Dioxide Anion Gap BUN Creatinine Estim Creat Clear Calc Estimated GFR Glucose POC Capillary Glucose 179 H 197 H Calcium Magnesium Total Bilirubin AST ALT Alkaline Phosphatase Total Protein Albumin Hepatitis A IgM Ab Negative Hep Bs Antigen Negative Hep B Core IgM Ab Negative Hepatitis C Ab Screen Negative 07/05/25 07/06/25 07/06/25 23:53 05:00 05:52 WBC 2.9 L RBC 2.73 L Hgb 7.0 L Hct 23.7 L MCV 86.8 MCH 25.6 L MCHC 29.5 L RDW 22.9 H Plt Count 58 L MPV TNP Immature Gran % (Auto) 24.1 H Neut % (Auto) 48.8 Lymph % (Auto) 20.7 [place] % (Auto) 3.7 Eos % (Auto) 2.4 Baso % (Auto) 0.3 Lymph # (Auto) 0.61 L [place] # (Auto) 0.1 Eos # (Auto) 0.1 Baso # (Auto) 0.0 Abs Immat Gran (auto) 0.71 H Absolute Neuts (auto) 1.4 Absolute Nucleated RBC 0.000 Band Neutrophils % Not Reportable Nucleated RBC % 0.0 Platelet Estimate Decreased % Immature Plt Fraction 6.6 Hypochromasia 2+ Poikilocytosis 1+ Anisocytosis 1+ Ovalocytes 1+ [place] Cells 1+ Schistocytes None seen Sodium 127 L Potassium 4.4 Chloride 106 Carbon Dioxide 21 L Anion Gap 0 L BUN 24 H Creatinine 0.93 Estim Creat Clear Calc Not Reportable Estimated GFR 59 Glucose 136 H POC Capillary Glucose 176 H 146 H Calcium 7.4 L Magnesium 2.4 H Total Bilirubin 1.0 AST 70 H ALT 30 Alkaline Phosphatase 106 Total Protein 5.2 L Albumin 2.2 L Hepatitis A IgM Ab Hep Bs Antigen Hep B Core IgM Ab Hepatitis C Ab Screen 07/06/25 07:40 WBC RBC Hgb Hct MCV MCH MCHC RDW Plt Count MPV Immature Gran % (Auto) Neut % (Auto) Lymph % (Auto) [place] % (Auto) Eos % (Auto) Baso % (Auto) Lymph # (Auto) [place] # (Auto) Eos # (Auto) Baso # (Auto) Abs Immat Gran (auto) Absolute Neuts (auto) Absolute Nucleated RBC Band Neutrophils % Nucleated RBC % Platelet Estimate % Immature Plt Fraction Hypochromasia Poikilocytosis Anisocytosis Ovalocytes [place] Cells Schistocytes Sodium Potassium Chloride Carbon Dioxide Anion Gap BUN Creatinine Estim Creat Clear Calc Estimated GFR Glucose POC Capillary Glucose 143 H Calcium Magnesium Total Bilirubin AST ALT Alkaline Phosphatase Total Protein Albumin Hepatitis A IgM Ab Hep Bs Antigen Hep B Core IgM Ab Hepatitis C Ab Screen
--- NOTE | 2025-07-06 11:49 | P.PNIM_ITS ---
Progress Note: A&P Assessment and Plan (1) Hematuria: Code(s): R31.9 - Hematuria, unspecified Status: Acute Assessment and Plan: Likely 2/2 bladder mass as seen on CT with hematoma in the bladder Hgb 3.1 on admission s/p 3 unit prbc transfused with adequate response Hgb 6.7 on 06/29 and again received 1 unit prbc transfusion with adequate response -the patient has not been on any blood thinners. -continue to monitor H/H, has since been stable - urology consulted s/p for cysto, TURBT with Dr. Escoto on 07/[address] 07/02 -POD 1 cysto, TURBT with Dr. Escoto CBI d/c, urine is yellow urology following hg stable 07/03 hg/hct 8.3/27.[address] ordered[address] Pancultured 07/04:-CT abdomen followed by CT urogram consistent with bladder wall perforation. Repeat urogram per urology that redemonstration of bladder leak. (2) Urinary tract infection: Qualifiers: Hematuria presence: with hematuria Urinary tract infection type: acute cystitis Qualified Code(s): N30.01 - Acute cystitis with hematuria Code(s): N39.0 - Urinary tract infection, site not specified Status: Inactive Assessment and Plan: - UC: ecoli pansensitive - previous micro reviewed 06/17/24: klebsiella pneumoniae - started on rocephin on 06/28 07/02- urine culture growing e coli, continue antibiotic 07/03 spiked fever this am, VS stable. Urine/c/s and BC collected. pelvic CT ordered [address] reviewed. Will broaden antibiotics with vancomycin and meropenem Remains afebrile (3) Bladder mass: Code(s): N32.89 - Other specified disorders of bladder Status: Acute Assessment and Plan: Abdomen/pelvis CTA showed bladder mass suspicious for urothelial carcinoma - Urology consulted s/p for cysto, TURBT and Gemcitabine 2gm administered through the catheter/into the bladder with DR. Escoto on 07/01 maintain garcía catheter for urinary diversion (4) Obstructive sleep apnea: Code(s): G47.33 - Obstructive sleep apnea (adult) (pediatric) Status: Acute Assessment and Plan: -continue CPAP as per home settings. (5) Elevated blood sugar: Code(s): R73.9 - Hyperglycemia, unspecified Status: Acute Assessment and Plan: -the patient had an elevated blood sugar on admission - A1c 6.3 on 06/27/25 Reviewed glucose and remains stable. (6) Postoperative perforation of urinary bladder: Code(s): N99.89 - Other postprocedural complications and disorders of genitourinary system; S37.29XA - Other injury of bladder, initial encounter Status: Acute Assessment and Plan: Postoperative bladder wall perforation noted on CT Planned expectant management with small size Maintain catheter Continue to monitor (7) Cirrhosis: Code(s): K74.60 - Unspecified cirrhosis of liver Status: Acute Assessment and Plan: As noted on CT This never been worked up in the past per patient Hepatitis profile negative Does have significant history of alcohol use in the past. Never had EGD performed Plan Thrombocytopenia acute on chronic 103 on 06/2024. Hyponatremia mild continue to monitor Iron deficiency with low ferritin and % desaturation no EGD in the past. Colonoscopy more than 10 years ago. Received IV Venofer GI consult and discussed with him. Hyponatremia worsening. Normal saline treatment lowered it suggestive of SIADH. Will stop IV normal saline add salt tablet. Lasix if needed. Water re striction Subjective Date/time seen: 07/06/25 11:49 Interval history: No overnight events. Reports belly pain is improving. No nausea vomiting. Had a bowel movement today. Discussed with GI. Review of Systems Review of Systems: All systems reviewed & are unremarkable except as noted in HPI and below Exam Narrative: General: female in no acute respiratory distress who is nontoxic appearing, resting in bed HEENT: Normocephalic. Atraumatic. Extraocular movement intact. Sclera clear and anicteric.No facial asymmetry. Chest: Lungs are clear to auscultation bilaterally. No wheezes or crackles. CV: Heart was regular rate and rhythm. : garcía in situ with yellow urine in bag Abd: Abdomen was soft. Mildly tender lower abdomen Nondistended. Positive bowel sounds. No rebound Ext: No clubbing, cyanosis, or edema. DP pulses bilaterally. Neuro: Patient is alert. Speech is clear. Objective Data Vital Signs Vital Signs: Vital Signs - 24 hr 07/05/25 12:00 07/05/25 14:00 07/05/25 16:00 Temperature 98.3 F Pulse Rate 75 74 76 Respiratory Rate 16 Blood Pressure 129/42 L Pulse Oximetry 99 Oxygen Delivery 07/05/25 19:18 07/05/25 20:00 07/05/25 20:56 Temperature 97.9 F Pulse Rate 75 75 78 Respiratory Rate 24 H 17 Blood Pressure 121/38 L Pulse Oximetry 94 Oxygen Delivery CPAP 07/06/25 00:00 07/06/25 04:00 07/06/25 04:37 Temperature 98.0 F Pulse Rate 77 76 78 Respiratory Rate 20 Blood Pressure 122/44 L Pulse Oximetry 100 Oxygen Delivery 07/06/25 08:00 07/06/25 08:00 Temperature Pulse Rate 88 Respiratory Rate Blood Pressure Pulse Oximetry Oxygen Delivery CPAP Intake/Output Intake/Output: Intake & Output 07/03/25 07/04/25 07/05/25 07/06/25 23:59 23:59 23:59 23:59 Intake Total 530 1050 2640 1140 Output Total 875 525 650 400 Balance -137 968 6664 740 Meds/Results Medications: Active Medications Generic Name Dose Route Start Last Admin Trade Name Freq PRN Reason Stop Dose Admin Acetaminophen 1,000 mg 07/03/25 12:52 07/06/25 09:12 Acetaminophen 500 Mg Tablet PO 1,000 mg Q6H PRN Administration Mild Pain (1-3) or Fever Hydrocodone Bitart/Acetaminophen 1 tab 07/01/25 21:32 07/05/25 08:18 Hydrocodone/Acetaminophen (*Crx) 5-325 Mg Tablet PO 1 tab Q4H PRN Administration Pain Rated 4-6 Calcium Carbonate 200 mg 06/27/25 11:32 Calcium Carbonate (Tums) 500 Mg (200 Mg Elemental) PO Q6H PRN Indigestion Docusate Sodium 100 mg 06/30/25 10:49 07/03/25 09:42 Docusate Sodium 100 Mg Capsule PO 100 mg Q12H PRN Administration Constipation Fentanyl Citrate 25 mcg 07/01/25 14:44 07/01/25 15:32 Fentanyl Citrate Inj (*Crx) 100 Mcg/2 Ml Vial IV PUSH 25 mcg Q2M PRN Administration Pain Hydromorphone HCl 0.5 mg 06/27/25 01:12 07/03/25 20:45 Hydromorphone Hcl Inj (*Crx) 1 Mg/Ml Syr IV PUSH 0.5 mg Q4H PRN Administration Pain Rated 7-10 Sodium Chloride 1,000 mls @ 75 mls/hr 07/04/25 13:25 07/05/25 21:21 Normal Saline Iv IV CONT 75 mls/hr .[id number] ELISA Administration Meropenem 1 gm/ Sodium 100 mls @ 200 mls/hr 07/04/25 14:00 07/06/25 06:35 Chloride IVPB Infused Q8HR ELISA Infusion Ondansetron HCl 4 mg 06/27/25 01:12 Ondansetron Inj 4 Mg/2 Ml Vial IV PUSH Q4H PRN Nausea Ondansetron HCl 4 mg 07/01/25 14:44 Ondansetron Inj 4 Mg/2 Ml Vial IV PUSH ONCE PRN Nausea Polyethylene Glycol 17 gm 06/30/25 10:53 07/03/25 09:43 Polyethylene Glycol 3350 17 Gm Powd.Pack PO 17 gm QAM PRN Administration Constipation Solifenacin 5 mg 07/02/25 09:00 07/06/25 09:12 Solifenacin 5 Mg Tablet PO 5 mg QAM ELISA Administration Vancomycin HCl 1 each 07/06/25 10:35 Vancomycin For Acute Kidney Injury IVPB PRN PRN Vancomycin Protocol Radiology Results: ITS Impressions Chest X-Ray 06/26/25 18:12 IMPRESSION: 1. Abdomen/Pelvis CTA 06/27/25 06:48 IMPRESSION: 1. Mild pulmonary edema with small pleural effusions. 2. Cirrhosis of the liver. 3. Small volume of ascites. 4. Bladder mass suspicious for urothelial carcinoma. Hematoma in the bladder. 5. Wall thickening of the rectum, consistent with proctitis. Abdomen/Pelvis CT 07/03/25 07:19 IMPRESSION: 1. Highly worrisome for urinary bladder perforation. Pelvis CT 07/05/25 10:51 IMPRESSION: 1. Small bladder leak again identified. Labs Labs: Laboratory Results - last 24 hr 07/05/25 07/05/25 07/05/25 05:20 12:16 16:35 WBC RBC Hgb Hct MCV MCH MCHC RDW Plt Count MPV Immature Gran % (Auto) Neut % (Auto) Lymph % (Auto) [place] % (Auto) Eos % (Auto) Baso % (Auto) Lymph # (Auto) [place] # (Auto) Eos # (Auto) Baso # (Auto) Abs Immat Gran (auto) Absolute Neuts (auto) Absolute Nucleated RBC Band Neutrophils % Nucleated RBC % Platelet Estimate % Immature Plt Fraction Hypochromasia Poikilocytosis Anisocytosis Ovalocytes [place] Cells Schistocytes Sodium Potassium Chloride Carbon Dioxide Anion Gap BUN Creatinine Estim Creat Clear Calc Estimated GFR Glucose POC Capillary Glucose 179 H 197 H Calcium Magnesium Total Bilirubin AST ALT Alkaline Phosphatase Total Protein Albumin Hepatitis A IgM Ab Negative Hep Bs Antigen Negative Hep B Core IgM Ab Negative Hepatitis C Ab Screen Negative 07/05/25 07/06/25 07/06/25 23:53 05:00 05:52 WBC 2.9 L RBC 2.73 L Hgb 7.0 L Hct 23.7 L MCV 86.8 MCH 25.6 L MCHC 29.5 L RDW 22.9 H Plt Count 58 L MPV TNP Immature Gran % (Auto) 24.1 H Neut % (Auto) 48.8 Lymph % (Auto) 20.7 [place] % (Auto) 3.7 Eos % (Auto) 2.4 Baso % (Auto) 0.3 Lymph # (Auto) 0.61 L [place] # (Auto) 0.1 Eos # (Auto) 0.1 Baso # (Auto) 0.0 Abs Immat Gran (auto) 0.71 H Absolute Neuts (auto) 1.4 Absolute Nucleated RBC 0.000 Band Neutrophils % Not Reportable Nucleated RBC % 0.0 Platelet Estimate Decreased % Immature Plt Fraction 6.6 Hypochromasia 2+ Poikilocytosis 1+ Anisocytosis 1+ Ovalocytes 1+ [place] Cells 1+ Schistocytes None seen Sodium 127 L Potassium 4.4 Chloride 106 Carbon Dioxide 21 L Anion Gap 0 L BUN 24 H Creatinine 0.93 Estim Creat Clear Calc Not Reportable Estimated GFR 59 Glucose 136 H POC Capillary Glucose 176 H 146 H Calcium 7.4 L Magnesium 2.4 H Total Bilirubin 1.0 AST 70 H ALT 30 Alkaline Phosphatase 106 Total Protein 5.2 L Albumin 2.2 L Hepatitis A IgM Ab Hep Bs Antigen Hep B Core IgM Ab Hepatitis C Ab Screen 07/06/25 07:40 WBC RBC Hgb Hct MCV MCH MCHC RDW Plt Count MPV Immature Gran % (Auto) Neut % (Auto) Lymph % (Auto) [place] % (Auto) Eos % (Auto) Baso % (Auto) Lymph # (Auto) [place] # (Auto) Eos # (Auto) Baso # (Auto) Abs Immat Gran (auto) Absolute Neuts (auto) Absolute Nucleated RBC Band Neutrophils % Nucleated RBC % Platelet Estimate % Immature Plt Fraction Hypochromasia Poikilocytosis Anisocytosis Ovalocytes [place] Cells Schistocytes Sodium Potassium Chloride Carbon Dioxide Anion Gap BUN Creatinine Estim Creat Clear Calc Estimated GFR Glucose POC Capillary Glucose 143 H Calcium Magnesium Total Bilirubin AST ALT Alkaline Phosphatase Total Protein Albumin Hepatitis A IgM Ab Hep Bs Antigen Hep B Core IgM Ab Hepatitis C Ab Screen
[2025-07-06] MEDS: SODIUM CHLORIDE 500 MG TABLET PO ×2 (14:12→17:26)
[2025-07-06 15:59] LABS: Hematocrit 22.5 % (37.0-47.0)
[2025-07-06 16:08] LABS: Hemoglobin 6.9 g/dL (12.0-15.0)
[2025-07-06] MEDS: SODIUM CHLORIDE 0.9% IV 250 ML 30 ML IV CONT (20:04)
[2025-07-07] VITALS (11 sets, daily range): BP systolic 112–124; BP diastolic 39–57; PULSE 63–79; RESP 16–23; TEMP 36.3–36.7; O2SAT 95–100
[2025-07-07 02:03] LABS: Hematocrit 25.9 % (37.0-47.0); Hemoglobin 8.0 g/dL (12.0-15.0); Immature Granulocyte Percent A 1.4 % (0-0.5); Immature Platelet Fraction Pct 4.4 % (0.9-11.2); Lymphocytes Absolute Auto 0.73 K/mm3 (0.9-3.2); Mean Corpuscular HGB Conc 30.9 g/dl (32-36); Mean Corpuscular Hemoglobin 26.3 pg (26-34); Mean Corpuscular Volume 85.2 fl (80-100); Nucleated Red Blood Cells Absolute Auto 0.000 K/mm3 (0.0-0.012); Nucleated Red Blood Cells Perc 0.0 % (0.0-0.2); Platelet Count Result 50 k/mm3 (150-375); Red Blood Count 3.04 M/mm3 (4.2-5.4); White Blood Count 3.5 K/mm3 (4.5-10.0)
[2025-07-07 02:14] LABS: Alanine Aminotransferase 42 U/L (6-35); Albumin Level 2.2 g/dL (3.5-5.1); Alkaline Phosphatase 149 U/L (38-126); Anion Gap 0 mmol/L (4-12); Aspartate Amino Transferase 67 U/L (14-36); Bilirubin,Total 1.4 mg/dL (0.2-1.3); Blood Urea Nitrogen 19 mg/dL (7-17); Calcium 7.5 mg/dL (8.4-10.2); Carbon Dioxide 21 mmol/L (22-30); Chloride 107 mmol/L (98-107); Estimated Glomerular Filt Rate > 60; Glucose 146 mg/dL (65-110); Magnesium 2.4 mg/dL (1.6-2.3); Potassium 4.1 mmol/L (3.4-5.0); Sodium 128 mmol/L (137-145); Total Protein 5.1 g/dL (6.3-8.2)
[2025-07-07 02:47] LABS: Anisocytosis 2+; Ovalocytes 1+; Schistocytes Rare
[2025-07-07] MEDS: MEROPENEM 1 GM in SODIUM CHLORIDE 0.9% IV 100 ML 200 ML IVPB ×2 (05:52→13:15)
[2025-07-07] MEDS: VANCOMYCIN 1,500 MG/NS 500 ML 1,500 MG/500 ML BAG 250 MG IVPB (06:19)
--- NOTE | 2025-07-07 07:04 | WPDGIPROGNO ---
Progress Note: A&P Assessment and Plan (1) Cirrhosis: Code(s): K74.60 - Unspecified cirrhosis of liver Status: Acute Assessment and Plan: Patient has advanced cirrhosis with a MELD 3.0 of 23. Current active issue is a urinary bladder perforation being managed conservatively with a Mitchell catheter. While the patient's cirrhosis is currently compensated without evidence of overt decompensation, CT imaging did reveal ascites. We recommend initiating a low-dose Spironolactone regimen (50 mg daily) and obtaining a Nutritional Service consultation for guidance on a low-sodium diet. Continue current management for the documented urinary tract infection and coordinate ongoing general care and bladder catheter care with the Urology Service for the bladder cancer. We can follow the patient in our clinic once discharged and with her current infectious problems resolved. Subjective Date/time seen: 07/07/25 07:04 Interval history: Patient remains afebrile, hemodynamically stable. Today's labs: Hemoglobin 8.0, platelet count 50, sodium 138, potassium 4.1, creatinine 0.9, AST 67, P 42, albumin 2.2 bilirubin 1.4. Objective Data Vital Signs Vital Signs: Vital Signs - 24 hr 07/06/25 08:00 07/06/25 08:00 07/06/25 12:00 Temperature Pulse Rate 88 79 Respiratory Rate Blood Pressure Pulse Oximetry Oxygen Delivery CPAP 07/06/25 14:00 07/06/25 16:00 07/06/25 19:38 Temperature 97.4 F L 97.7 F Pulse Rate 74 69 72 Respiratory Rate 16 18 Blood Pressure 106/32 L 123/41 L Pulse Oximetry 96 100 Oxygen Delivery 07/06/25 20:00 07/06/25 20:00 07/06/25 20:05 Temperature 97.7 F Pulse Rate 73 72 Respiratory Rate 18 Blood Pressure 123/41 L Pulse Oximetry 100 Oxygen Delivery CPAP 07/06/25 20:19 07/06/25 21:19 07/06/25 22:19 Temperature 98.5 F 98.1 F 97.8 F Pulse Rate 71 70 70 Respiratory Rate 18 16 18 Blood Pressure 128/32 L 127/25 L 121/43 L Pulse Oximetry 98 100 100 Oxygen Delivery 07/06/25 23:16 07/06/25 23:41 07/07/25 00:00 Temperature 98.1 F Pulse Rate 72 77 70 Respiratory Rate 18 20 Blood Pressure 125/37 L Pulse Oximetry 100 96 Oxygen Delivery CPAP 07/07/25 03:25 07/07/25 04:00 07/07/25 04:55 Temperature 98.0 F Pulse Rate 79 69 73 Respiratory Rate 22 H 20 Blood Pressure 124/39 L Pulse Oximetry 95 100 Oxygen Delivery CPAP Intake/Output Intake/Output: Intake & Output 07/04/25 07/05/25 07/06/25 07/07/25 23:59 23:59 23:59 23:59 Intake Total 1050 2640 2130 340 Output Total 525 650 400 800 Balance 525 1989 1730 -460 Meds/Results Medications: Active Medications Generic Name Dose Route Start Last Admin Trade Name Freq PRN Reason Stop Dose Admin Acetaminophen 1,000 mg 07/03/25 12:52 07/06/25 09:12 Acetaminophen 500 Mg Tablet PO 1,000 mg Q6H PRN Administration Mild Pain (1-3) or Fever Hydrocodone Bitart/Acetaminophen 1 tab 07/01/25 21:32 07/05/25 08:18 Hydrocodone/Acetaminophen (*Crx) 5-325 Mg Tablet PO 1 tab Q4H PRN Administration Pain Rated 4-6 Calcium Carbonate 200 mg 06/27/25 11:32 Calcium Carbonate (Tums) 500 Mg (200 Mg Elemental) PO Q6H PRN Indigestion Docusate Sodium 100 mg 06/30/25 10:49 07/03/25 09:42 Docusate Sodium 100 Mg Capsule PO 100 mg Q12H PRN Administration Constipation Fentanyl Citrate 25 mcg 07/01/25 14:44 07/01/25 15:32 Fentanyl Citrate Inj (*Crx) 100 Mcg/2 Ml Vial IV PUSH 25 mcg Q2M PRN Administration Pain Meropenem 1 gm/ Sodium 100 mls @ 200 mls/hr 07/04/25 14:00 07/07/25 06:23 Chloride IVPB Infused Q8HR ELISA Infusion Vancomycin HCl 1,500 mg in 500 mls @ 250 mls/hr 07/07/25 06:00 07/07/25 06:19 Vancomycin 1,500 Mg/Ns 500 Ml IVPB 07/07/25 07:59 250 mls/hr ONCE ONE Administration Ondansetron HCl 4 mg 06/27/25 01:12 Ondansetron Inj 4 Mg/2 Ml Vial IV PUSH Q4H PRN Nausea Ondansetron HCl 4 mg 07/01/25 14:44 Ondansetron Inj 4 Mg/2 Ml Vial IV PUSH ONCE PRN Nausea Polyethylene Glycol 17 gm 06/30/25 10:53 07/03/25 09:43 Polyethylene Glycol 3350 17 Gm Powd.Pack PO 17 gm QAM PRN Administration Constipation Sodium Chloride 500 mg 07/06/25 11:55 07/06/25 17:26 Sodium Chloride 500 Mg Tablet PO 500 mg BID ELISA Administration Solifenacin 5 mg 07/02/25 09:00 07/06/25 09:12 Solifenacin 5 Mg Tablet PO 5 mg QAM ELISA Administration Vancomycin HCl 1 each 07/06/25 10:35 Vancomycin For Acute Kidney Injury IVPB PRN PRN Vancomycin Protocol Radiology Results: ITS Impressions Chest X-Ray 06/26/25 18:12 IMPRESSION: 1. Abdomen/Pelvis CTA 06/27/25 06:48 IMPRESSION: 1. Mild pulmonary edema with small pleural effusions. 2. Cirrhosis of the liver. 3. Small volume of ascites. 4. Bladder mass suspicious for urothelial carcinoma. Hematoma in the bladder. 5. Wall thickening of the rectum, consistent with proctitis. Abdomen/Pelvis CT 07/03/25 07:19 IMPRESSION: 1. Highly worrisome for urinary bladder perforation. Pelvis CT 07/05/25 10:51 IMPRESSION: 1. Small bladder leak again identified. Labs Labs: Laboratory Results - last 24 hr 07/06/25 07/06/25 07/06/25 07:40 11:49 15:50 WBC RBC Hgb 6.9 L* Hct 22.5 L MCV MCH MCHC RDW Plt Count MPV Immature Gran % (Auto) Neut % (Auto) Lymph % (Auto) [place] % (Auto) Eos % (Auto) Baso % (Auto) Lymph # (Auto) [place] # (Auto) Eos # (Auto) Baso # (Auto) Abs Immat Gran (auto) Absolute Neuts (auto) Absolute Nucleated RBC Band Neutrophils % Nucleated RBC % Platelet Estimate % Immature Plt Fraction Anisocytosis Ovalocytes Schistocytes Sodium Potassium Chloride Carbon Dioxide Anion Gap BUN Creatinine Estim Creat Clear Calc Estimated GFR Glucose POC Capillary Glucose 143 H 160 H Calcium Magnesium Total Bilirubin AST ALT Alkaline Phosphatase Total Protein Albumin Random Vancomycin Blood Type Antibody Screen Crossmatch 07/06/25 07/06/25 07/06/25 17:07 18:13 23:46 WBC RBC Hgb Hct MCV MCH MCHC RDW Plt Count MPV Immature Gran % (Auto) Neut % (Auto) Lymph % (Auto) [place] % (Auto) Eos % (Auto) Baso % (Auto) Lymph # (Auto) [place] # (Auto) Eos # (Auto) Baso # (Auto) Abs Immat Gran (auto) Absolute Neuts (auto) Absolute Nucleated RBC Band Neutrophils % Nucleated RBC % Platelet Estimate % Immature Plt Fraction Anisocytosis Ovalocytes Schistocytes Sodium Potassium Chloride Carbon Dioxide Anion Gap BUN Creatinine Estim Creat Clear Calc Estimated GFR Glucose POC Capillary Glucose 173 H 146 H Calcium Magnesium Total Bilirubin AST ALT Alkaline Phosphatase Total Protein Albumin Random Vancomycin Blood Type O Positive Antibody Screen Negative Crossmatch See Detail 07/07/25 07/07/25 01:53 05:01 WBC 3.5 L RBC 3.04 L Hgb 8.0 L Hct 25.9 L MCV 85.2 MCH 26.3 MCHC 30.9 L RDW 21.3 H Plt Count 50 L MPV TNP Immature Gran % (Auto) 1.4 H Neut % (Auto) 69.6 Lymph % (Auto) 21.2 [place] % (Auto) 4.9 Eos % (Auto) 2.3 Baso % (Auto) 0.6 Lymph # (Auto) 0.73 L [place] # (Auto) 0.2 Eos # (Auto) 0.1 Baso # (Auto) 0.0 Abs Immat Gran (auto) 0.05 H Absolute Neuts (auto) 2.4 Absolute Nucleated RBC 0.000 Band Neutrophils % Not Reportable Nucleated RBC % 0.0 Platelet Estimate Decreased % Immature Plt Fraction 4.4 Anisocytosis 2+ Ovalocytes 1+ Schistocytes Rare Sodium 128 L Potassium 4.1 Chloride 107 Carbon Dioxide 21 L Anion Gap 0 L BUN 19 H Creatinine 0.90 Estim Creat Clear Calc Not Reportable Estimated GFR > 60 Glucose 146 H POC Capillary Glucose 137 H Calcium 7.5 L Magnesium 2.4 H Total Bilirubin 1.4 H AST 67 H ALT 42 H Alkaline Phosphatase 149 H Total Protein 5.1 L Albumin 2.2 L Random Vancomycin 10.2 Blood Type Antibody Screen Crossmatch
--- NOTE | 2025-07-07 08:19 | WPDUROPN2 ---
Progress Note: A&P Assessment and Plan (1) Postoperative perforation of urinary bladder: Code(s): N99.89 - Other postprocedural complications and disorders of genitourinary system; S37.29XA - Other injury of bladder, initial encounter Status: Acute (2) Bladder mass: Code(s): N32.89 - Other specified disorders of bladder Status: Acute Plan Appreciate Dr. Blair's input re: cirrhosis As before, estraperitoneal bladder perforation should heal with catheter drainage. Will plan cystogram at 2-week post-op Urine culture pending Subjective Subjective Date/Time Seen: 07/07/25 08:19 Interval history: Comfortable, no c/o abd/pelvic discomfort. Tolerating diet Review of Systems Cardiovascular: Cardiovascular: Denies chest pain, Denies lightheadedness, Denies palpitations and Denies dyspnea Respiratory: Respiratory: Denies dyspnea Gastrointestinal: Gastrointestinal: Denies diarrhea, Denies nausea and Denies vomiting Genitourinary: Genitourinary: Denies hematuria and Denies dysuria Endocrine: Endocrine: Denies palpitations Exam Const: General: no acute distress Resp: Effort & Inspection: normal respiratory effort GI: Inspection: non-distended GI Palp: No abdominal tenderness (scant tenderness without guarding/rebound) and No Guarding due to palpation present (GI) Auscultation: normal bowel sounds Urinary Catheter: Urinary Catheter: patent and draining and urine clear Objective Data Vital Signs Vital Signs: Vital Signs - 24 hr 07/06/25 12:00 07/06/25 14:00 07/06/25 16:00 Temperature 97.4 F L Pulse Rate 79 74 69 Respiratory Rate 16 Blood Pressure 106/32 L Pulse Oximetry 96 Oxygen Delivery 07/06/25 19:38 07/06/25 20:00 07/06/25 20:00 Temperature 97.7 F Pulse Rate 72 73 Respiratory Rate 18 Blood Pressure 123/41 L Pulse Oximetry 100 Oxygen Delivery CPAP 07/06/25 20:05 07/06/25 20:19 07/06/25 21:19 Temperature 97.7 F 98.5 F 98.1 F Pulse Rate 72 71 70 Respiratory Rate 18 18 16 Blood Pressure 123/41 L 128/32 L 127/25 L Pulse Oximetry 100 98 100 Oxygen Delivery 07/06/25 22:19 07/06/25 23:16 07/06/25 23:41 Temperature 97.8 F 98.1 F Pulse Rate 70 72 77 Respiratory Rate 18 18 20 Blood Pressure 121/43 L 125/37 L Pulse Oximetry 100 100 96 Oxygen Delivery CPAP 07/07/25 00:00 07/07/25 03:25 07/07/25 04:00 Temperature Pulse Rate 70 79 69 Respiratory Rate 22 H Blood Pressure Pulse Oximetry 95 Oxygen Delivery CPAP 07/07/25 04:55 Temperature 98.0 F Pulse Rate 73 Respiratory Rate 20 Blood Pressure 124/39 L Pulse Oximetry 100 Oxygen Delivery Intake/Output Intake/Output: Intake & Output 07/04/25 07/05/25 07/06/25 07/07/25 23:59 23:59 23:59 23:59 Intake Total 1050 2640 2130 340 Output Total 525 650 400 800 Balance 525 5375 9620 -620 Meds/Results Medications: Active Medications Generic Name Dose Route Start Last Admin Trade Name Freq PRN Reason Stop Dose Admin Acetaminophen 1,000 mg 07/03/25 12:52 07/06/25 09:12 Acetaminophen 500 Mg Tablet PO 1,000 mg Q6H PRN Administration Mild Pain (1-3) or Fever Hydrocodone Bitart/Acetaminophen 1 tab 07/01/25 21:32 07/05/25 08:18 Hydrocodone/Acetaminophen (*Crx) 5-325 Mg Tablet PO 1 tab Q4H PRN Administration Pain Rated 4-6 Calcium Carbonate 200 mg 06/27/25 11:32 Calcium Carbonate (Tums) 500 Mg (200 Mg Elemental) PO Q6H PRN Indigestion Docusate Sodium 100 mg 06/30/25 10:49 07/03/25 09:42 Docusate Sodium 100 Mg Capsule PO 100 mg Q12H PRN Administration Constipation Fentanyl Citrate 25 mcg 07/01/25 14:44 07/01/25 15:32 Fentanyl Citrate Inj (*Crx) 100 Mcg/2 Ml Vial IV PUSH 25 mcg Q2M PRN Administration Pain Meropenem 1 gm/ Sodium 100 mls @ 200 mls/hr 07/04/25 14:00 07/07/25 06:23 Chloride IVPB Infused Q8HR ELISA Infusion Ondansetron HCl 4 mg 06/27/25 01:12 Ondansetron Inj 4 Mg/2 Ml Vial IV PUSH Q4H PRN Nausea Ondansetron HCl 4 mg 07/01/25 14:44 Ondansetron Inj 4 Mg/2 Ml Vial IV PUSH ONCE PRN Nausea Polyethylene Glycol 17 gm 06/30/25 10:53 07/03/25 09:43 Polyethylene Glycol 3350 17 Gm Powd.Pack PO 17 gm QAM PRN Administration Constipation Sodium Chloride 500 mg 07/06/25 11:55 07/06/25 17:26 Sodium Chloride 500 Mg Tablet PO 500 mg BID ELISA Administration Solifenacin 5 mg 07/02/25 09:00 07/06/25 09:12 Solifenacin 5 Mg Tablet PO 5 mg QAM ELISA Administration Vancomycin HCl 1 each 07/06/25 10:35 Vancomycin For Acute Kidney Injury IVPB PRN PRN Vancomycin Protocol Radiology Results: ITS Impressions Chest X-Ray 06/26/25 18:12 IMPRESSION: 1. Abdomen/Pelvis CTA 06/27/25 06:48 IMPRESSION: 1. Mild pulmonary edema with small pleural effusions. 2. Cirrhosis of the liver. 3. Small volume of ascites. 4. Bladder mass suspicious for urothelial carcinoma. Hematoma in the bladder. 5. Wall thickening of the rectum, consistent with proctitis. Abdomen/Pelvis CT 07/03/25 07:19 IMPRESSION: 1. Highly worrisome for urinary bladder perforation. Pelvis CT 07/05/25 10:51 IMPRESSION: 1. Small bladder leak again identified. Labs Labs: Laboratory Results - last 24 hr 07/06/25 07/06/25 07/06/25 11:49 15:50 17:07 WBC RBC Hgb 6.9 L* Hct 22.5 L MCV MCH MCHC RDW Plt Count MPV Immature Gran % (Auto) Neut % (Auto) Lymph % (Auto) [place] % (Auto) Eos % (Auto) Baso % (Auto) Lymph # (Auto) [place] # (Auto) Eos # (Auto) Baso # (Auto) Abs Immat Gran (auto) Absolute Neuts (auto) Absolute Nucleated RBC Band Neutrophils % Nucleated RBC % Platelet Estimate % Immature Plt Fraction Anisocytosis Ovalocytes Schistocytes Sodium Potassium Chloride Carbon Dioxide Anion Gap BUN Creatinine Estim Creat Clear Calc Estimated GFR Glucose POC Capillary Glucose 160 H Calcium Magnesium Total Bilirubin AST ALT Alkaline Phosphatase Total Protein Albumin Random Vancomycin Blood Type O Positive Antibody Screen Negative Crossmatch See Detail 07/06/25 07/06/25 07/07/25 18:13 23:46 01:53 WBC 3.5 L RBC 3.04 L Hgb 8.0 L Hct 25.9 L MCV 85.2 MCH 26.3 MCHC 30.9 L RDW 21.3 H Plt Count 50 L MPV TNP Immature Gran % (Auto) 1.4 H Neut % (Auto) 69.6 Lymph % (Auto) 21.2 [place] % (Auto) 4.9 Eos % (Auto) 2.3 Baso % (Auto) 0.6 Lymph # (Auto) 0.[address] [place] # (Auto) 0.2 Eos # (Auto) 0.1 Baso # (Auto) 0.0 Abs Immat Gran (auto) 0.05 H Absolute Neuts (auto) 2.4 Absolute Nucleated RBC 0.000 Band Neutrophils % Not Reportable Nucleated RBC % 0.0 Platelet Estimate Decreased % Immature Plt Fraction 4.4 Anisocytosis 2+ Ovalocytes 1+ Schistocytes Rare Sodium 128 L Potassium 4.1 Chloride 107 Carbon Dioxide 21 L Anion Gap 0 L BUN 19 H Creatinine 0.90 Estim Creat Clear Calc Not Reportable Estimated GFR > 60 Glucose 146 H POC Capillary Glucose 173 H 146 H Calcium 7.5 L Magnesium 2.4 H Total Bilirubin 1.4 H AST 67 H ALT 42 H Alkaline Phosphatase 149 H Total Protein 5.1 L Albumin 2.2 L Random Vancomycin 10.2 Blood Type Antibody Screen Crossmatch 07/07/25 05:01 WBC RBC Hgb Hct MCV MCH MCHC RDW Plt Count MPV Immature Gran % (Auto) Neut % (Auto) Lymph % (Auto) [place] % (Auto) Eos % (Auto) Baso % (Auto) Lymph # (Auto) [place] # (Auto) Eos # (Auto) Baso # (Auto) Abs Immat Gran (auto) Absolute Neuts (auto) Absolute Nucleated RBC Band Neutrophils % Nucleated RBC % Platelet Estimate % Immature Plt Fraction Anisocytosis Ovalocytes Schistocytes Sodium Potassium Chloride Carbon Dioxide Anion Gap BUN Creatinine Estim Creat Clear Calc Estimated GFR Glucose POC Capillary Glucose 137 H Calcium Magnesium Total Bilirubin AST ALT Alkaline Phosphatase Total Protein Albumin Random Vancomycin Blood Type Antibody Screen Crossmatch
[2025-07-07] MEDS: SODIUM CHLORIDE 500 MG TABLET PO ×2 (08:27→16:55)
[2025-07-07] MEDS: SOLIFENACIN 5 MG TABLET PO (08:27)
--- NOTE | 2025-07-07 09:07 | WPDUROPN2 ---
Subjective Subjective Date/Time Seen: 07/07/25 09:07 Interval history: NAEO; pt resting comfortably in bed. Light pink urine output in Mitchell tubing/bag. Exam Const: General: no acute distress Resp: Effort & Inspection: normal respiratory effort GI: Inspection: non-distended GI Palp: No abdominal tenderness (scant tenderness without guarding/rebound) and No Guarding due to palpation present (GI) Auscultation: normal bowel sounds Urinary Catheter: Urinary Catheter: patent and draining and urine clear (light pink) Objective Data Vital Signs Vital Signs: Vital Signs - 24 hr 07/06/25 12:00 07/06/25 14:00 07/06/25 16:00 Temperature 36.3 C L Pulse Rate 79 74 69 Respiratory Rate 16 Blood Pressure 106/32 L Pulse Oximetry 96 Oxygen Delivery 07/06/25 19:38 07/06/25 20:00 07/06/25 20:00 Temperature 36.5 C Pulse Rate 72 73 Respiratory Rate 18 Blood Pressure 123/41 L Pulse Oximetry 100 Oxygen Delivery CPAP 07/06/25 20:05 07/06/25 20:19 07/06/25 21:19 Temperature 36.5 C 36.9 C 36.7 C Pulse Rate 72 71 70 Respiratory Rate 18 18 16 Blood Pressure 123/41 L 128/32 L 127/25 L Pulse Oximetry 100 98 100 Oxygen Delivery 07/06/25 22:19 07/06/25 23:16 07/06/25 23:41 Temperature 36.6 C 36.7 C Pulse Rate 70 72 77 Respiratory Rate 18 18 20 Blood Pressure 121/43 L 125/37 L Pulse Oximetry 100 100 96 Oxygen Delivery CPAP 07/07/25 00:00 07/07/25 03:25 07/07/25 04:00 Temperature Pulse Rate 70 79 69 Respiratory Rate 22 H Blood Pressure Pulse Oximetry 95 Oxygen Delivery CPAP 07/07/25 04:55 Temperature 36.7 C Pulse Rate 73 Respiratory Rate 20 Blood Pressure 124/39 L Pulse Oximetry 100 Oxygen Delivery Intake/Output Intake/Output: Intake & Output 07/04/25 07/05/25 07/06/25 07/07/25 23:59 23:59 23:59 23:59 Intake Total 1050 2640 2130 580 Output Total 525 650 400 800 Balance 525 [id number] Meds/Results Medications: Active Medications Generic Name Dose Route Start Last Admin Trade Name Freq PRN Reason Stop Dose Admin Acetaminophen 1,000 mg 07/03/25 12:52 07/06/25 09:12 Acetaminophen 500 Mg Tablet PO 1,000 mg Q6H PRN Administration Mild Pain (1-3) or Fever Hydrocodone Bitart/Acetaminophen 1 tab 07/01/25 21:32 07/05/25 08:18 Hydrocodone/Acetaminophen (*Crx) 5-325 Mg Tablet PO 1 tab Q4H PRN Administration Pain Rated 4-6 Calcium Carbonate 200 mg 06/27/25 11:32 Calcium Carbonate (Tums) 500 Mg (200 Mg Elemental) PO Q6H PRN Indigestion Docusate Sodium 100 mg 06/30/25 10:49 07/03/25 09:42 Docusate Sodium 100 Mg Capsule PO 100 mg Q12H PRN Administration Constipation Fentanyl Citrate 25 mcg 07/01/25 14:44 07/01/25 15:32 Fentanyl Citrate Inj (*Crx) 100 Mcg/2 Ml Vial IV PUSH 25 mcg Q2M PRN Administration Pain Meropenem 1 gm/ Sodium 100 mls @ 200 mls/hr 07/04/25 14:00 07/07/25 06:23 Chloride IVPB Infused Q8HR ELISA Infusion Ondansetron HCl 4 mg 06/27/25 01:12 Ondansetron Inj 4 Mg/2 Ml Vial IV PUSH Q4H PRN Nausea Ondansetron HCl 4 mg 07/01/25 14:44 Ondansetron Inj 4 Mg/2 Ml Vial IV PUSH ONCE PRN Nausea Polyethylene Glycol 17 gm 06/30/25 10:53 07/03/25 09:43 Polyethylene Glycol 3350 17 Gm Powd.Pack PO 17 gm QAM PRN Administration Constipation Sodium Chloride 500 mg 07/06/25 11:55 07/07/25 08:27 Sodium Chloride 500 Mg Tablet PO 500 mg BID ELISA Administration Solifenacin 5 mg 07/02/25 09:00 07/07/25 08:27 Solifenacin 5 Mg Tablet PO 5 mg QAM ELISA Administration Vancomycin HCl 1 each 07/06/25 10:35 Vancomycin For Acute Kidney Injury IVPB PRN PRN Vancomycin Protocol Radiology Results: ITS Impressions Chest X-Ray 06/26/25 18:12 IMPRESSION: 1. Abdomen/Pelvis CTA 06/27/25 06:48 IMPRESSION: 1. Mild pulmonary edema with small pleural effusions. 2. Cirrhosis of the liver. 3. Small volume of ascites. 4. Bladder mass suspicious for urothelial carcinoma. Hematoma in the bladder. 5. Wall thickening of the rectum, consistent with proctitis. Abdomen/Pelvis CT 07/03/25 07:19 IMPRESSION: 1. Highly worrisome for urinary bladder perforation. Pelvis CT 07/05/25 10:51 IMPRESSION: 1. Small bladder leak again identified. Labs Labs: Laboratory Results - last 24 hr 07/06/25 07/06/25 07/06/25 11:49 15:50 17:07 WBC RBC Hgb 6.9 L* Hct 22.5 L MCV MCH MCHC RDW Plt Count MPV Immature Gran % (Auto) Neut % (Auto) Lymph % (Auto) [place] % (Auto) Eos % (Auto) Baso % (Auto) Lymph # (Auto) [place] # (Auto) Eos # (Auto) Baso # (Auto) Abs Immat Gran (auto) Absolute Neuts (auto) Absolute Nucleated RBC Band Neutrophils % Nucleated RBC % Platelet Estimate % Immature Plt Fraction Anisocytosis Ovalocytes Schistocytes Sodium Potassium Chloride Carbon Dioxide Anion Gap BUN Creatinine Estim Creat Clear Calc Estimated GFR Glucose POC Capillary Glucose 160 H Calcium Magnesium Total Bilirubin AST ALT Alkaline Phosphatase Total Protein Albumin Random Vancomycin Blood Type O Positive Antibody Screen Negative Crossmatch See Detail 07/06/25 07/06/25 07/07/25 18:13 23:46 01:53 WBC 3.5 L RBC 3.04 L Hgb 8.0 L Hct 25.9 L MCV 85.2 MCH 26.3 MCHC 30.9 L RDW 21.3 H Plt Count 50 L MPV TNP Immature Gran % (Auto) 1.4 H Neut % (Auto) 69.6 Lymph % (Auto) 21.2 [place] % (Auto) 4.9 Eos % (Auto) 2.3 Baso % (Auto) 0.6 Lymph # (Auto) 0.73 L [place] # (Auto) 0.2 Eos # (Auto) 0.1 Baso # (Auto) 0.0 Abs Immat Gran (auto) 0.05 H Absolute Neuts (auto) 2.4 Absolute Nucleated RBC 0.000 Band Neutrophils % Not Reportable Nucleated RBC % 0.0 Platelet Estimate Decreased % Immature Plt Fraction 4.4 Anisocytosis 2+ Ovalocytes 1+ Schistocytes Rare Sodium 128 L Potassium 4.1 Chloride 107 Carbon Dioxide 21 L Anion Gap 0 L BUN 19 H Creatinine 0.90 Estim Creat Clear Calc Not Reportable Estimated GFR > 60 Glucose 146 H POC Capillary Glucose 173 H 146 H Calcium 7.5 L Magnesium 2.4 H Total Bilirubin 1.4 H AST 67 H ALT 42 H Alkaline Phosphatase 149 H Total Protein 5.1 L Albumin 2.2 L Random Vancomycin 10.2 Blood Type Antibody Screen Crossmatch 07/07/25 05:01 WBC RBC Hgb Hct MCV MCH MCHC RDW Plt Count MPV Immature Gran % (Auto) Neut % (Auto) Lymph % (Auto) [place] % (Auto) Eos % (Auto) Baso % (Auto) Lymph # (Auto) [place] # (Auto) Eos # (Auto) Baso # (Auto) Abs Immat Gran (auto) Absolute Neuts (auto) Absolute Nucleated RBC Band Neutrophils % Nucleated RBC % Platelet Estimate % Immature Plt Fraction Anisocytosis Ovalocytes Schistocytes Sodium Potassium Chloride Carbon Dioxide Anion Gap BUN Creatinine Estim Creat Clear Calc Estimated GFR Glucose POC Capillary Glucose 137 H Calcium Magnesium Total Bilirubin AST ALT Alkaline Phosphatase Total Protein Albumin Random Vancomycin Blood Type Antibody Screen Crossmatch
[2025-07-07] MEDS: SPIRONOLACTONE 50 MG TABLET PO (11:31)
[2025-07-07] MEDS: ACETAMINOPHEN 500 MG TABLET 1000 MG PO (13:15)
--- NOTE | 2025-07-07 13:48 | P.PNIM_ITS ---
Subjective Date/time seen: 07/07/25 13:48 Interval history: Reports abdominal pain is a improving. No nausea vomiting tolerating diet. Labs reviewed discussed with the family at bedside. Exam Narrative: General: female in no acute respiratory distress who is nontoxic appearing, resting in bed HEENT: Normocephalic. Atraumatic. Extraocular movement intact. Sclera clear and anicteric.No facial asymmetry. Chest: Lungs are clear to auscultation bilaterally. No wheezes or crackles. CV: Heart was regular rate and rhythm. : garcía in situ with yellow urine in bag Abd: Abdomen was soft. Mildly tender lower abdomen Nondistended. Positive bowel sounds. No rebound Ext: No clubbing, cyanosis, or edema. DP pulses bilaterally. Neuro: Patient is alert. Speech is clear. Objective Data Vital Signs Vital Signs: Vital Signs - 24 hr 07/06/25 14:00 07/06/25 16:00 07/06/25 19:38 Temperature 97.4 F L 97.7 F Pulse Rate 74 69 72 Respiratory Rate 16 18 Blood Pressure 106/32 L 123/41 L Pulse Oximetry 96 100 Oxygen Delivery 07/06/25 20:00 07/06/25 20:00 07/06/25 20:05 Temperature 97.7 F Pulse Rate 73 72 Respiratory Rate 18 Blood Pressure 123/41 L Pulse Oximetry 100 Oxygen Delivery CPAP 07/06/25 20:19 07/06/25 21:19 07/06/25 22:19 Temperature 98.5 F 98.1 F 97.8 F Pulse Rate 71 70 70 Respiratory Rate 18 16 18 Blood Pressure 128/32 L 127/25 L 121/43 L Pulse Oximetry 98 100 100 Oxygen Delivery 07/06/25 23:16 07/06/25 23:41 07/07/25 00:00 Temperature 98.1 F Pulse Rate 72 77 70 Respiratory Rate 18 20 Blood Pressure 125/37 L Pulse Oximetry 100 96 Oxygen Delivery CPAP 07/07/25 03:25 07/07/25 04:00 07/07/25 04:55 Temperature 98.0 F Pulse Rate 79 69 73 Respiratory Rate 22 H 20 Blood Pressure 124/39 L Pulse Oximetry 95 100 Oxygen Delivery CPAP 07/07/25 08:00 07/07/25 08:00 07/07/25 12:00 Temperature Pulse Rate 73 78 72 Respiratory Rate 20 Blood Pressure Pulse Oximetry 100 Oxygen Delivery CPAP Intake/Output Intake/Output: Intake & Output 07/04/25 07/05/25 07/06/25 07/07/25 23:59 23:59 23:59 23:59 Intake Total 1050 2640 2130 700 Output Total 525 650 400 800 Balance 525 1989 1730 -100 Meds/Results Medications: Active Medications Generic Name Dose Route Start Last Admin Trade Name Freq PRN Reason Stop Dose Admin Acetaminophen 1,000 mg 07/03/25 12:52 07/07/25 13:15 Acetaminophen 500 Mg Tablet PO 1,000 mg Q6H PRN Administration Mild Pain (1-3) or Fever Hydrocodone Bitart/Acetaminophen 1 tab 07/01/25 21:32 07/05/25 08:18 Hydrocodone/Acetaminophen (*Crx) 5-325 Mg Tablet PO 1 tab Q4H PRN Administration Pain Rated 4-6 Calcium Carbonate 200 mg 06/27/25 11:32 Calcium Carbonate (Tums) 500 Mg (200 Mg Elemental) PO Q6H PRN Indigestion Docusate Sodium 100 mg 06/30/25 10:49 07/03/25 09:42 Docusate Sodium 100 Mg Capsule PO 100 mg Q12H PRN Administration Constipation Fentanyl Citrate 25 mcg 07/01/25 14:44 07/01/25 15:32 Fentanyl Citrate Inj (*Crx) 100 Mcg/2 Ml Vial IV PUSH 25 mcg Q2M PRN Administration Pain Meropenem 1 gm/ Sodium 100 mls @ 200 mls/hr 07/04/25 14:00 07/07/25 13:15 Chloride IVPB 200 mls/hr Q8HR ELISA Administration Ondansetron HCl 4 mg 06/27/25 01:12 Ondansetron Inj 4 Mg/2 Ml Vial IV PUSH Q4H PRN Nausea Ondansetron HCl 4 mg 07/01/25 14:44 Ondansetron Inj 4 Mg/2 Ml Vial IV PUSH ONCE PRN Nausea Polyethylene Glycol 17 gm 06/30/25 10:53 07/03/25 09:43 Polyethylene Glycol 3350 17 Gm Powd.Pack PO 17 gm QAM PRN Administration Constipation Sodium Chloride 500 mg 07/06/25 11:55 07/07/25 08:27 Sodium Chloride 500 Mg Tablet PO 500 mg BID ELISA Administration Solifenacin 5 mg 07/02/25 09:00 07/07/25 08:27 Solifenacin 5 Mg Tablet PO 5 mg QAM ELISA Administration Spironolactone 50 mg 07/07/25 10:25 07/07/25 11:31 Spironolactone 50 Mg Tablet PO 50 mg QAM ELISA Administration Vancomycin HCl 1 each 07/06/25 10:35 Vancomycin For Acute Kidney Injury IVPB PRN PRN Vancomycin Protocol Radiology Results: ITS Impressions Chest X-Ray 06/26/25 18:12 IMPRESSION: 1. Abdomen/Pelvis CTA 06/27/25 06:48 IMPRESSION: 1. Mild pulmonary edema with small pleural effusions. 2. Cirrhosis of the liver. 3. Small volume of ascites. 4. Bladder mass suspicious for urothelial carcinoma. Hematoma in the bladder. 5. Wall thickening of the rectum, consistent with proctitis. Abdomen/Pelvis CT 07/03/25 07:19 IMPRESSION: 1. Highly worrisome for urinary bladder perforation. Pelvis CT 07/05/25 10:51 IMPRESSION: 1. Small bladder leak again identified. Labs Labs: Laboratory Results - last 24 hr 07/06/25 07/06/25 07/06/25 15:50 17:07 18:13 WBC RBC Hgb 6.9 L* Hct 22.5 L MCV MCH MCHC RDW Plt Count MPV Immature Gran % (Auto) Neut % (Auto) Lymph % (Auto) [place] % (Auto) Eos % (Auto) Baso % (Auto) Lymph # (Auto) [place] # (Auto) Eos # (Auto) Baso # (Auto) Abs Immat Gran (auto) Absolute Neuts (auto) Absolute Nucleated RBC Band Neutrophils % Nucleated RBC % Platelet Estimate % Immature Plt Fraction Anisocytosis Ovalocytes Schistocytes Sodium Potassium Chloride Carbon Dioxide Anion Gap BUN Creatinine Estim Creat Clear Calc Estimated GFR Glucose POC Capillary Glucose 173 H Calcium Magnesium Total Bilirubin AST ALT Alkaline Phosphatase Total Protein Albumin Random Vancomycin Blood Type O Positive Antibody Screen Negative Crossmatch See Detail 07/06/25 07/07/25 07/07/25 23:46 01:53 05:01 WBC 3.5 L RBC 3.04 L Hgb 8.0 L Hct 25.9 L MCV 85.2 MCH 26.3 MCHC 30.9 L RDW 21.3 H Plt Count 50 L MPV TNP Immature Gran % (Auto) 1.4 H Neut % (Auto) 69.6 Lymph % (Auto) 21.2 [place] % (Auto) 4.9 Eos % (Auto) 2.3 Baso % (Auto) 0.6 Lymph # (Auto) 0.73 L [place] # (Auto) 0.2 Eos # (Auto) 0.1 Baso # (Auto) 0.0 Abs Immat Gran (auto) 0.05 H Absolute Neuts (auto) 2.4 Absolute Nucleated RBC 0.000 Band Neutrophils % Not Reportable Nucleated RBC % 0.0 Platelet Estimate Decreased % Immature Plt Fraction 4.4 Anisocytosis 2+ Ovalocytes 1+ Schistocytes Rare Sodium 128 L Potassium 4.1 Chloride 107 Carbon Dioxide 21 L Anion Gap 0 L BUN 19 H Creatinine 0.90 Estim Creat Clear Calc Not Reportable Estimated GFR > 60 Glucose 146 H POC Capillary Glucose 146 H 137 H Calcium 7.5 L Magnesium 2.4 H Total Bilirubin 1.4 H AST 67 H ALT 42 H Alkaline Phosphatase 149 H Total Protein 5.1 L Albumin 2.2 L Random Vancomycin 10.2 Blood Type Antibody Screen Crossmatch 07/07/25 11:46 WBC RBC Hgb Hct MCV MCH MCHC RDW Plt Count MPV Immature Gran % (Auto) Neut % (Auto) Lymph % (Auto) [place] % (Auto) Eos % (Auto) Baso % (Auto) Lymph # (Auto) [place] # (Auto) Eos # (Auto) Baso # (Auto) Abs Immat Gran (auto) Absolute Neuts (auto) Absolute Nucleated RBC Band Neutrophils % Nucleated RBC % Platelet Estimate % Immature Plt Fraction Anisocytosis Ovalocytes Schistocytes Sodium Potassium Chloride Carbon Dioxide Anion Gap BUN Creatinine Estim Creat Clear Calc Estimated GFR Glucose POC Capillary Glucose 148 H Calcium Magnesium Total Bilirubin AST ALT Alkaline Phosphatase Total Protein Albumin Random Vancomycin Blood Type Antibody Screen Crossmatch Assessment and Plan Assessment and Plan (1) Hematuria: Code(s): R31.9 - Hematuria, unspecified Status: Acute Assessment and Plan: Likely 2/2 bladder mass as seen on CT with hematoma in the bladder Hgb 3.1 on admission s/p 3 unit prbc transfused with adequate response Hgb 6.7 on 06/29 and again received 1 unit prbc transfusion with adequate response -the patient has not been on any blood thinners. -continue to monitor H/H, has since been stable - urology consulted s/p for cysto, TURBT with Dr. Escoto on 07/[address] 07/02 -POD 1 cysto, TURBT with Dr. Escoto CBI d/c, urine is yellow urology following hg stable 07/03 hg/hct 8.3/27.[address] ordered. Pancultured 07/04:-CT abdomen followed by CT urogram consistent with bladder wall perforation. Repeat urogram per urology that redemonstration of bladder leak. Follow-up urogram as an outpatient basis. Bladder pathology came back as high-grade urothelial carcinoma invasive follow- up with urology as outpatient basis. (2) Urinary tract infection: Qualifiers: Hematuria presence: with hematuria Urinary tract infection type: acute cystitis Qualified Code(s): N30.01 - Acute cystitis with hematuria Code(s): N39.0 - Urinary tract infection, site not specified Status: Inactive Assessment and Plan: - UC: ecoli pansensitive - previous micro reviewed 06/17/24: klebsiella pneumoniae - started on rocephin on 06/28 07/02- urine culture growing e coli, continue antibiotic 07/03 spiked fever this am, VS stable. Urine/c/s and BC collected. pelvic CT ordered [address] reviewed. Will broaden antibiotics with vancomycin and meropenem Remains afebrile Urine culture pending. Will stop vancomycin today (3) Bladder mass: Code(s): N32.89 - Other specified disorders of bladder Status: Acute Assessment and Plan: Abdomen/pelvis CTA showed bladder mass suspicious for urothelial carcinoma - Urology consulted s/p for cysto, TURBT and Gemcitabine 2gm administered through the cat heter/into the bladder with DR. Escoto on 07/01 maintain garcía catheter for urinary diversion Pathology back with high-grade invasive urothelial carcinoma (4) Obstructive sleep apnea: Code(s): G47.33 - Obstructive sleep apnea (adult) (pediatric) Status: Acute Assessment and Plan: -continue CPAP as per home settings. (5) Elevated blood sugar: Code(s): R73.9 - Hyperglycemia, unspecified Status: Acute Assessment and Plan: -the patient had an elevated blood sugar on admission - A1c 6.3 on 06/27/25 Reviewed glucose and remains stable. (6) Postoperative perforation of urinary bladder: Code(s): N99.89 - Other postprocedural complications and disorders of genitourinary system; S37.29XA - Other injury of bladder, initial encounter Status: Acute Assessment and Plan: Postoperative bladder wall perforation noted on CT Planned expectant management with small size Maintain catheter Continue to monitor (7) Cirrhosis: Code(s): K74.60 - Unspecified cirrhosis of liver Status: Acute Assessment and Plan: As noted on CT This never been worked up in the past per patient Hepatitis profile negative Does have significant history of alcohol use in the past. Never had EGD performed Had spironolactone Plan Thrombocytopenia acute on chronic 103 on 06/2024. Hyponatremia mild continue to monitor Iron deficiency with low ferritin and % desaturation no EGD in the past. Colonoscopy more than 10 years ago. Received IV Venofer GI consult and discussed with him. Hyponatremia worsening. Normal saline treatment lowered it suggestive of SIADH. Will stop IV normal saline add salt tablet. Lasix if needed. Water restriction. Sodium stable
[2025-07-08] VITALS (11 sets, daily range): BP systolic 117–123; BP diastolic 38–40; PULSE 63–71; RESP 16–23; TEMP 36.3–36.6; O2SAT 93–99
[2025-07-08] MEDS: MEROPENEM 1 GM in SODIUM CHLORIDE 0.9% IV 100 ML 200 ML IVPB ×4 (00:02→20:44)
[2025-07-08 06:51] LABS: Hematocrit 27.0 % (37.0-47.0); Hemoglobin 8.3 g/dL (12.0-15.0); Immature Platelet Fraction Pct 5.5 % (0.9-11.2); Mean Corpuscular HGB Conc 30.7 g/dl (32-36); Mean Corpuscular Hemoglobin 25.7 pg (26-34); Mean Corpuscular Volume 83.6 fl (80-100); Platelet Count Result 53 k/mm3 (150-375); Red Blood Count 3.23 M/mm3 (4.2-5.4); White Blood Count 4.1 K/mm3 (4.5-10.0)
[2025-07-08 07:02] LABS: Alanine Aminotransferase 33 U/L (6-35); Albumin Level 2.1 g/dL (3.5-5.1); Alkaline Phosphatase 167 U/L (38-126); Anion Gap -2 mmol/L (4-12); Aspartate Amino Transferase 45 U/L (14-36); Bilirubin,Total 1.0 mg/dL (0.2-1.3); Blood Urea Nitrogen 14 mg/dL (7-17); Calcium 7.6 mg/dL (8.4-10.2); Carbon Dioxide 25 mmol/L (22-30); Chloride 109 mmol/L (98-107); Estimated Glomerular Filt Rate > 60; Glucose 148 mg/dL (65-110); Magnesium 2.3 mg/dL (1.6-2.3); Potassium 4.2 mmol/L (3.4-5.0); Sodium 132 mmol/L (137-145); Total Protein 5.1 g/dL (6.3-8.2)
[2025-07-08 07:43] LABS: Basophils Absolute Manual 0.04 K/mm3 (0.0-0.1); Basophils Percent Manual 1 % (0-1); Lymphocytes Absolute Manual 0.65 K/mm3 (1.1-4.5); Lymphocytes Percent Manual 16.0 % (18-44); Monocytes Absolute Manual 0.16 K/mm3 (0.1-0.90); Monocytes Percent Manual 4 % (3-9); Neutrophils Percent Manual 79 % (46-73); Total Cells Counted 100
[2025-07-08 07:44] LABS: Anisocytosis 1+
[2025-07-08 07:46] LABS: Hypochromasia 1+; Polychromasia Occasional; Schistocytes None Seen
[2025-07-08 07:47] LABS: Ovalocytes 1+
[2025-07-08] MEDS: SPIRONOLACTONE 50 MG TABLET PO (08:12)
[2025-07-08] MEDS: SOLIFENACIN 5 MG TABLET PO (08:12)
[2025-07-08] MEDS: SODIUM CHLORIDE 500 MG TABLET PO (08:12)
--- NOTE | 2025-07-08 11:58 | WPDUROPN2 ---
Progress Note: A&P Assessment and Plan (1) Postoperative perforation of urinary bladder: Code(s): N99.89 - Other postprocedural complications and disorders of genitourinary system; S37.29XA - Other injury of bladder, initial encounter Status: Acute Assessment and Plan: - Maintain Mitchell catheter x2 weeks, anticipate perforation will heal with urinary diversion - Will plan for repeat CT cystogram in 2 weeks to confirm (2) Bladder mass: Code(s): N32.89 - Other specified disorders of bladder Status: Acute Assessment and Plan: - S/p TURBT for large bladder tumor - Pathology confirming high grade pT1 urothelial carcinoma of the bladder - Will ultimately benefit from repeat TURBT followed by treatment discussion; will follow up with Dr. Escoto outpatient to arrange Subjective Subjective Date/Time Seen: 07/08/25 11:58 Interval history: NAEO; resting comfortably in bed. Mitchell catheter draining clear yellow urine. Exam Const: General: no acute distress Resp: Effort & Inspection: normal respiratory effort GI: Inspection: non-distended GI Palp: No abdominal tenderness (scant tenderness without guarding/rebound) and No Guarding due to palpation present (GI) Auscultation: normal bowel sounds Urinary Catheter: Urinary Catheter: patent and draining and urine clear Objective Data Vital Signs Vital Signs: Vital Signs - 24 hr 07/07/25 12:00 07/07/25 14:00 07/07/25 16:00 Temperature 36.4 C Pulse Rate 72 68 68 Respiratory Rate 16 Blood Pressure 114/57 L Pulse Oximetry 97 Oxygen Delivery 07/07/25 19:30 07/07/25 20:40 07/07/25 21:37 Temperature 36.3 C L Pulse Rate 66 68 63 Respiratory Rate 20 23 H Blood Pressure 112/40 L Pulse Oximetry 99 97 Oxygen Delivery CPAP 07/08/25 00:00 07/08/25 02:55 07/08/25 03:06 Temperature 36.3 C L Pulse Rate 63 67 67 Respiratory Rate 20 Blood Pressure 117/38 L Pulse Oximetry 99 Oxygen Delivery CPAP 07/08/25 04:00 07/08/25 08:00 07/08/25 08:00 Temperature Pulse Rate 65 64 Respiratory Rate Blood Pressure Pulse Oximetry Oxygen Delivery Room Air Intake/Output Intake/Output: Intake & Output 07/05/25 07/06/25 07/07/25 07/08/25 23:59 23:59 23:59 23:59 Intake Total 2640 2130 1220 670 Output Total 650 400 800 700 Balance 1989 1730 420 -30 Meds/Results Medications: Active Medications Generic Name Dose Route Start Last Admin Trade Name Freq PRN Reason Stop Dose Admin Acetaminophen 1,000 mg 07/03/25 12:52 07/07/25 13:15 Acetaminophen 500 Mg Tablet PO 1,000 mg Q6H PRN Administration Mild Pain (1-3) or Fever Hydrocodone Bitart/Acetaminophen 1 tab 07/01/25 21:32 07/05/25 08:18 Hydrocodone/Acetaminophen (*Crx) 5-325 Mg Tablet PO 1 tab Q4H PRN Administration Pain Rated 4-6 Calcium Carbonate 200 mg 06/27/25 11:32 Calcium Carbonate (Tums) 500 Mg (200 Mg Elemental) PO Q6H PRN Indigestion Docusate Sodium 100 mg 06/30/25 10:49 07/03/25 09:42 Docusate Sodium 100 Mg Capsule PO 100 mg Q12H PRN Administration Constipation Fentanyl Citrate 25 mcg 07/01/25 14:44 07/01/25 15:32 Fentanyl Citrate Inj (*Crx) 100 Mcg/2 Ml Vial IV PUSH 25 mcg Q2M PRN Administration Pain Meropenem 1 gm/ Sodium 100 mls @ 200 mls/hr 07/04/25 14:00 07/08/25 06:15 Chloride IVPB 200 mls/hr Q8HR ELISA Administration Ondansetron HCl 4 mg 06/27/25 01:12 Ondansetron Inj 4 Mg/2 Ml Vial IV PUSH Q4H PRN Nausea Ondansetron HCl 4 mg 07/01/25 14:44 Ondansetron Inj 4 Mg/2 Ml Vial IV PUSH ONCE PRN Nausea Polyethylene Glycol 17 gm 06/30/25 10:53 07/03/25 09:43 Polyethylene Glycol 3350 17 Gm Powd.Pack PO 17 gm QAM PRN Administration Constipation Sodium Chloride 500 mg 07/06/25 11:55 07/08/25 08:12 Sodium Chloride 500 Mg Tablet PO 500 mg BID ELISA Administration Solifenacin 5 mg 07/02/25 09:00 07/08/25 08:12 Solifenacin 5 Mg Tablet PO 5 mg QAM ELISA Administration Spironolactone 50 mg 07/07/25 10:25 07/08/25 08:12 Spironolactone 50 Mg Tablet PO 50 mg QAM ELISA Administration Radiology Results: ITS Impressions Chest X-Ray 06/26/25 18:12 IMPRESSION: 1. Abdomen/Pelvis CTA 06/27/25 06:48 IMPRESSION: 1. Mild pulmonary edema with small pleural effusions. 2. Cirrhosis of the liver. 3. Small volume of ascites. 4. Bladder mass suspicious for urothelial carcinoma. Hematoma in the bladder. 5. Wall thickening of the rectum, consistent with proctitis. Abdomen/Pelvis CT 07/03/25 07:19 IMPRESSION: 1. Highly worrisome for urinary bladder perforation. Pelvis CT 07/05/25 10:51 IMPRESSION: 1. Small bladder leak again identified. Labs Labs: Laboratory Results - last 24 hr 06/27/25 07/07/25 07/08/25 00:08 23:51 05:42 WBC 4.1 L RBC 3.23 L Hgb 8.3 L Hct 27.0 L MCV 83.6 MCH 25.7 L MCHC 30.7 L RDW 21.7 H Plt Count 53 L MPV TNP Immature Gran % (Auto) Not Reportable Neut % (Auto) Not Reportable Lymph % (Auto) Not Reportable [place] % (Auto) Not Reportable Eos % (Auto) Not Reportable Baso % (Auto) Not Reportable Lymph # (Auto) Not Reportable [place] # (Auto) Not Reportable Eos # (Auto) Not Reportable Baso # (Auto) Not Reportable Abs Immat Gran (auto) Not Reportable Absolute Neuts (auto) Not Reportable Absolute Nucleated RBC Not Reportable Total Counted 100 Neutrophils % (Manual) 79 H Band Neutrophils % Not Reportable Lymphocytes % (Manual) 16.0 L Monocytes % (Manual) 4 Basophils % (Manual) 1 Nucleated RBC % Not Reportable Abs Lymphs (Manual) 0.65 L Abs Monocytes (Manual) 0.16 Abs Basophils (Manual) 0.04 Nucleated RBCs 2 Platelet Estimate Decreased % Immature Plt Fraction 5.5 Polychromasia Occasional Hypochromasia 1+ Anisocytosis 1+ Ovalocytes 1+ Schistocytes None seen Sodium 132 L Potassium 4.2 Chloride 109 H Carbon Dioxide 25 Anion Gap -2 L BUN 14 D Creatinine 0.85 Estim Creat Clear Calc Not Reportable Estimated GFR > 60 Glucose 148 H POC Capillary Glucose 151 H Calcium 7.6 L Magnesium 2.3 Total Bilirubin 1.0 AST 45 H ALT 33 Alkaline Phosphatase 167 H Total Protein 5.1 L Albumin 2.1 L Urine Color Dark red H Random Vancomycin 11.5 07/08/25 11:37 WBC RBC Hgb Hct MCV MCH MCHC RDW Plt Count MPV Immature Gran % (Auto) Neut % (Auto) Lymph % (Auto) [place] % (Auto) Eos % (Auto) Baso % (Auto) Lymph # (Auto) [place] # (Auto) Eos # (Auto) Baso # (Auto) Abs Immat Gran (auto) Absolute Neuts (auto) Absolute Nucleated RBC Total Counted Neutrophils % (Manual) Band Neutrophils % Lymphocytes % (Manual) Monocytes % (Manual) Basophils % (Manual) Nucleated RBC % Abs Lymphs (Manual) Abs Monocytes (Manual) Abs Basophils (Manual) Nucleated RBCs Platelet Estimate % Immature Plt Fraction Polychromasia Hypochromasia Anisocytosis Ovalocytes Schistocytes Sodium Potassium Chloride Carbon Dioxide Anion Gap BUN Creatinine Estim Creat Clear Calc Estimated GFR Glucose POC Capillary Glucose 161 H Calcium Magnesium Total Bilirubin AST ALT Alkaline Phosphatase Total Protein Albumin Urine Color Random Vancomycin
--- NOTE | 2025-07-08 14:51 | PM.IMPN2 ---
Assessment and Plan Assessment and Plan (1) Hematuria: Code(s): R31.9 - Hematuria, unspecified Status: Acute Assessment and Plan: Likely 2/2 bladder mass as seen on CT with hematoma in the bladder Hgb 3.1 on admission s/p 3 unit prbc transfused with adequate response Hgb 6.7 on 06/29 and again received 1 unit prbc transfusion with adequate response -the patient has not been on any blood thinners. -continue to monitor H/H, has since been stable - urology consulted s/p for cysto, TURBT with Dr. Escoto on 07/[address] 07/02 -POD 1 cysto, TURBT with Dr. Escoto CBI d/c, urine is yellow urology following hg stable 07/03 hg/hct 8.3/27.[address] ordered. Pancultured 07/04:-CT abdomen followed by CT urogram consistent with bladder wall perforation. Repeat urogram per urology that redemonstration of bladder leak. Follow-up urogram as an outpatient basis in 1-2 weeks planned. Bladder pathology came back as high-grade urothelial carcinoma invasive follow-up with urology as outpatient basis. (2) Urinary tract infection: Qualifiers: Hematuria presence: with hematuria Urinary tract infection type: acute cystitis Qualified Code(s): N30.01 - Acute cystitis with hematuria Code(s): N39.0 - Urinary tract infection, site not specified Status: Inactive Assessment and Plan: - UC: ecoli pansensitive - previous micro reviewed 06/17/24: klebsiella pneumoniae - started on rocephin on 06/28 07/02- urine culture growing e coli, continue antibiotic 07/03 spiked fever this am, VS stable. Urine/c/s and BC collected. pelvic CT ordered [address] reviewed. Will broaden antibiotics with vancomycin and meropenem Remains afebrile Urine culture still pending. Stop vancomycin. Will complete 5 days course of meropenem which will conclude tomorrow Remains afebrile (3) Bladder mass: Code(s): N32.89 - Other specified disorders of bladder Status: Acute Assessment and Plan: Abdomen/pelvis CTA showed bladder mass suspicious for urothelial carcinoma - Urology consulted s/p for cysto, TURBT and Gemcitabine 2gm administered through the catheter/into the bladder with DR. Escoto on 07/01 maintain garcía catheter for urinary diversion Pathology back with high-grade invasive urothelial carcinoma follow-up with Urology as outpatient basis for further evaluation and management (4) Obstructive sleep apnea: Code(s): G47.33 - Obstructive sleep apnea (adult) (pediatric) Status: Acute Assessment and Plan: -continue CPAP as per home settings. (5) Elevated blood sugar: Code(s): R73.9 - Hyperglycemia, unspecified Status: Acute Assessment and Plan: -the patient had an elevated blood sugar on admission - A1c 6.3 on 06/27/25 Reviewed glucose and remains stable. (6) Postoperative perforation of urinary bladder: Code(s): N99.89 - Other postprocedural complications and disorders of genitourinary system; S37.29XA - Other injury of bladder, initial encounter Status: Acute Assessment and Plan: Postoperative bladder wall perforation noted on CT Planned expectant management with small size Maintain catheter and will have cystogram performed in 1-2 weeks post discharge Continue to monitor (7) Cirrhosis: Code(s): K74.60 - Unspecified cirrhosis of liver Status: Acute Assessment and Plan: As noted on CT This never been worked up in the past per patient Hepatitis profile negative Does have significant history of alcohol use in the past. Never had EGD performed Had spironolactone Will add Lasix today Plan Thrombocytopenia acute on chronic 103 on 06/2024. Iron deficiency with low ferritin and % desaturation no EGD in the past. Colonoscopy more than 10 years ago. Received IV Venofer GI consult and need follow-up as an outpatient basis for EGD and colonoscopy Hyponatremia worsening. Normal saline treatment lowered it suggestive of SIADH. Stopped IV normal saline add salt tablet. Lasix if needed. Water restriction. Sodium stable. Will stop salt tablets. Recheck in a.m. Subjective Date/time seen: 07/08/25 14:51 Interval history: No overnight events. Still has some discomfort in her lower abdomen. No nausea vomiting. Tolerating diet. García in place no further hematuria noted. Family members at bedside and discussed with them Review of Systems Review of Systems: All systems reviewed & are unremarkable except as noted in HPI and below Exam Narrative: General: female in no acute respiratory distress who is nontoxic appearing, resting in bed HEENT: Normocephalic. Atraumatic. Extraocular movement intact. Sclera clear and anicteric.No facial asymmetry. Chest: Lungs are clear to auscultation bilaterally. No wheezes or crackles. CV: Heart was regular rate and rhythm. : garcía in situ with yellow urine in bag Abd: Abdomen was soft. Mildly tender lower abdomen Nondistended. Positive bowel sounds. No rebound Ext: No clubbing, cyanosis, or edema. DP pulses bilaterally. Neuro: Patient is alert. Speech is clear. Objective Data Vital Signs Vital Signs: Vital Signs - 24 hr 07/07/25 16:00 07/07/25 19:30 07/07/25 20:40 Temperature 97.4 F L Pulse Rate 68 66 68 Respiratory Rate 20 Blood Pressure 112/40 L Pulse Oximetry 99 Oxygen Delivery 07/07/25 21:37 07/08/25 00:00 07/08/25 02:55 Temperature 97.4 F L Pulse Rate 63 63 67 Respiratory Rate 23 H 20 Blood Pressure 117/38 L Pulse Oximetry 97 99 Oxygen Delivery CPAP 07/08/25 03:06 07/08/25 04:00 07/08/25 08:00 Temperature Pulse Rate 67 65 Respiratory Rate Blood Pressure Pulse Oximetry Oxygen Delivery CPAP Room Air 07/08/25 08:00 07/08/25 12:00 Temperature Pulse Rate 64 66 Respiratory Rate Blood Pressure Pulse Oximetry Oxygen Delivery Intake/Output Intake/Output: Intake & Output 07/05/25 07/06/25 07/07/25 07/08/25 23:59 23:59 23:59 23:59 Intake Total 2640 2130 1220 870 Output Total 650 400 800 700 Balance 1989 1730 420 170 Meds/Results Medications: Active Medications Generic Name Dose Route Start Last Admin Trade Name Freq PRN Reason Stop Dose Admin Acetaminophen 1,000 mg 07/03/25 12:52 07/07/25 13:15 Acetaminophen 500 Mg Tablet PO 1,000 mg Q6H PRN Administration Mild Pain (1-3) or Fever Hydrocodone Bitart/Acetaminophen 1 tab 07/01/25 21:32 07/05/25 08:18 Hydrocodone/Acetaminophen (*Crx) 5-325 Mg Tablet PO 1 tab Q4H PRN Administration Pain Rated 4-6 Calcium Carbonate 200 mg 06/27/25 11:32 Calcium Carbonate (Tums) 500 Mg (200 Mg Elemental) PO Q6H PRN Indigestion Docusate Sodium 100 mg 06/30/25 10:49 07/03/25 09:42 Docusate Sodium 100 Mg Capsule PO 100 mg Q12H PRN Administration Constipation Fentanyl Citrate 25 mcg 07/01/25 14:44 07/01/25 15:32 Fentanyl Citrate Inj (*Crx) 100 Mcg/2 Ml Vial IV PUSH 25 mcg Q2M PRN Administration Pain Meropenem 1 gm/ Sodium 100 mls @ 200 mls/hr 07/04/25 14:00 07/08/25 13:59 Chloride IVPB 07/09/25 06:29 200 mls/hr Q8HR ELISA Administration Ondansetron HCl 4 mg 06/27/25 01:12 Ondansetron Inj 4 Mg/2 Ml Vial IV PUSH Q4H PRN Nausea Ondansetron HCl 4 mg 07/01/25 14:44 Ondansetron Inj 4 Mg/2 Ml Vial IV PUSH ONCE PRN Nausea Polyethylene Glycol 17 gm 06/30/25 10:53 07/03/25 09:43 Polyethylene Glycol 3350 17 Gm Powd.Pack PO 17 gm QAM PRN Administration Constipation Sodium Chloride 500 mg 07/06/25 11:55 07/08/25 08:12 Sodium Chloride 500 Mg Tablet PO 500 mg BID ELISA Administration Solifenacin 5 mg 07/02/25 09:00 07/08/25 08:12 Solifenacin 5 Mg Tablet PO 5 mg QAM ELISA Administration Spironolactone 50 mg 07/07/25 10:25 07/08/25 08:12 Spironolactone 50 Mg Tablet PO 50 mg QAM ELISA Administration Radiology Results: ITS Impressions Chest X-Ray 06/26/25 18:12 IMPRESSION: 1. Abdomen/Pelvis CTA 06/27/25 06:48 IMPRESSION: 1. Mild pulmonary edema with small pleural effusions. 2. Cirrhosis of the liver. 3. Small volume of ascites. 4. Bladder mass suspicious for urothelial carcinoma. Hematoma in the bladder. 5. Wall thickening of the rectum, consistent with proctitis. Abdomen/Pelvis CT 07/03/25 07:19 IMPRESSION: 1. Highly worrisome for urinary bladder perforation. Pelvis CT 07/05/25 10:51 IMPRESSION: 1. Small bladder leak again identified. Labs Labs: Laboratory Results - last 24 hr 06/27/25 07/07/25 07/08/25 00:08 23:51 05:42 WBC 4.1 L RBC 3.23 L Hgb 8.3 L Hct 27.0 L MCV 83.6 MCH 25.7 L MCHC 30.7 L RDW 21.7 H Plt Count 53 L MPV TNP Immature Gran % (Auto) Not Reportable Neut % (Auto) Not Reportable Lymph % (Auto) Not Reportable Stanton % (Auto) Not Reportable Eos % (Auto) Not Reportable Baso % (Auto) Not Reportable Lymph # (Auto) Not Reportable Stanton # (Auto) Not Reportable Eos # (Auto) Not Reportable Baso # (Auto) Not Reportable Abs Immat Gran (auto) Not Reportable Absolute Neuts (auto) Not Reportable Absolute Nucleated RBC Not Reportable Total Counted 100 Neutrophils % (Manual) 79 H Band Neutrophils % Not Reportable Lymphocytes % (Manual) 16.0 L Monocytes % (Manual) 4 Basophils % (Manual) 1 Nucleated RBC % Not Reportable Abs Lymphs (Manual) 0.65 L Abs Monocytes (Manual) 0.16 Abs Basophils (Manual) 0.04 Nucleated RBCs 2 Platelet Estimate Decreased % Immature Plt Fraction 5.5 Polychromasia Occasional Hypochromasia 1+ Anisocytosis 1+ Ovalocytes 1+ Schistocytes None seen Sodium 132 L Potassium 4.2 Chloride 109 H Carbon Dioxide 25 Anion Gap -2 L BUN 14 D Creatinine 0.85 Estim Creat Clear Calc Not Reportable Estimated GFR > 60 Glucose 148 H POC Capillary Glucose 151 H Calcium 7.6 L Magnesium 2.3 Total Bilirubin 1.0 AST 45 H ALT 33 Alkaline Phosphatase 167 H Total Protein 5.1 L Albumin 2.1 L Urine Color Dark red H Random Vancomycin 11.5 07/08/25 11:37 WBC RBC Hgb Hct MCV MCH MCHC RDW Plt Count MPV Immature Gran % (Auto) Neut % (Auto) Lymph % (Auto) Stanton % (Auto) Eos % (Auto) Baso % (Auto) Lymph # (Auto) Stanton # (Auto) Eos # (Auto) Baso # (Auto) Abs Immat Gran (auto) Absolute Neuts (auto) Absolute Nucleated RBC Total Counted Neutrophils % (Manual) Band Neutrophils % Lymphocytes % (Manual) Monocytes % (Manual) Basophils % (Manual) Nucleated RBC % Abs Lymphs (Manual) Abs Monocytes (Manual) Abs Basophils (Manual) Nucleated RBCs Platelet Estimate % Immature Plt Fraction Polychromasia Hypochromasia Anisocytosis Ovalocytes Schistocytes Sodium Potassium Chloride Carbon Dioxide Anion Gap BUN Creatinine Estim Creat Clear Calc Estimated GFR Glucose POC Capillary Glucose 161 H Calcium Magnesium Total Bilirubin AST ALT Alkaline Phosphatase Total Protein Albumin Urine Color Random Vancomycin
[2025-07-08] MEDS: FUROSEMIDE 20 MG TABLET PO (16:41)
[2025-07-08] MEDS: HYDROcodone/acetaminophen (*CRX) 5-325 MG TABLET 1 TAB PO (17:18)
--- NOTE | 2025-07-08 17:42 | PC.NURSE ---
Patient had bloody urine in [place] at 1650 I called provider who asked that I call urology. I left a message with the exchange, awaiting call from urologist.
[2025-07-09] VITALS: PULSE 69
[2025-07-09 03:09] VITALS: BP 115/40; PULSE 66; RESP 20; TEMP 36.4; O2SAT 99
[2025-07-09 04:00] VITALS: PULSE 73
[2025-07-09 05:01] LABS: Hematocrit 27.7 % (37.0-47.0); Hemoglobin 8.5 g/dL (12.0-15.0); Immature Granulocyte Percent A 4.4 % (0-0.5); Immature Platelet Fraction Pct 4.8 % (0.9-11.2); Lymphocytes Absolute Auto 1.32 K/mm3 (0.9-3.2); Mean Corpuscular HGB Conc 30.7 g/dl (32-36); Mean Corpuscular Hemoglobin 26.3 pg (26-34); Mean Corpuscular Volume 85.8 fl (80-100); Nucleated Red Blood Cells Absolute Auto 0.080 K/mm3 (0.0-0.012); Nucleated Red Blood Cells Perc 1.5 % (0.0-0.2); Platelet Count Result 67 k/mm3 (150-375); Red Blood Count 3.23 M/mm3 (4.2-5.4); White Blood Count 5.2 K/mm3 (4.5-10.0)
[2025-07-09] MEDS: MEROPENEM 1 GM in SODIUM CHLORIDE 0.9% IV 100 ML 200 ML IVPB (05:03)
[2025-07-09 05:15] LABS: Alanine Aminotransferase 29 U/L (6-35); Albumin Level 2.1 g/dL (3.5-5.1); Alkaline Phosphatase 173 U/L (38-126); Anion Gap 0 mmol/L (4-12); Aspartate Amino Transferase 41 U/L (14-36); Bilirubin,Total 1.0 mg/dL (0.2-1.3); Blood Urea Nitrogen 14 mg/dL (7-17); Calcium 7.8 mg/dL (8.4-10.2); Carbon Dioxide 24 mmol/L (22-30); Chloride 108 mmol/L (98-107); Estimated Glomerular Filt Rate 60; Glucose 117 mg/dL (65-110); Magnesium 2.2 mg/dL (1.6-2.3); Potassium 4.1 mmol/L (3.4-5.0); Sodium 132 mmol/L (137-145); Total Protein 5.0 g/dL (6.3-8.2)
[2025-07-09 05:29] LABS: Anisocytosis 1+; Hypochromasia 1+; Polychromasia Occasional; Schistocytes None Seen
[2025-07-09 05:30] LABS: Ovalocytes 1+
--- NOTE | 2025-07-09 06:03 | P.PNUR_ITS ---
Progress Note: A&P Assessment and Plan (1) Cancer of overlapping sites of bladder: Code(s): C67.8 - Malignant neoplasm of overlapping sites of bladder Status: Acute (2) Postoperative perforation of urinary bladder: Code(s): N99.89 - Other postprocedural complications and disorders of genitourinary system; S37.29XA - Other injury of bladder, initial encounter Status: Acute Assessment and Plan: * Bladder pathology: T1, high-grade urothelial ca. / no muscle invasion * Long discussion yesterday with patient, her and daughters regarding pathology findings. This will require re-resection in approximately 6 weeks followed by induction BCG * Urine culture 07/03 shows no growth. From my standpoint, she can go home any time with an indwelling catheter. Will set up cystogram with probable catheter removal week of 07/21/2025. Recommend discharge on suppressive Keflex 250 mg daily. Subjective Subjective Date/Time Seen: 07/09/25 06:03 Interval history: Comfortable, no complaints Review of Systems Review of Systems: All systems reviewed & are unremarkable except as noted in HPI and below Exam Const: General: no acute distress Resp: Effort & Inspection: normal respiratory effort GI: Inspection: non-distended GI Palp: No abdominal tenderness and No Gua rding due to palpation present (GI) Auscultation: normal bowel sounds Urinary Catheter: Urinary Catheter: patent and draining and urine pink Objective Data Vital Signs Vital Signs: Vital Signs - 24 hr 07/08/25 08:00 07/08/25 08:00 07/08/25 12:00 Temperature Pulse Rate 64 66 Respiratory Rate Blood Pressure Pulse Oximetry Oxygen Delivery Room Air 07/08/25 14:00 07/08/25 16:00 07/08/25 20:11 Temperature 97.9 F 97.6 F Pulse Rate 67 70 67 Respiratory Rate 16 20 Blood Pressure 123/40 L 122/39 L Pulse Oximetry 99 93 Oxygen Delivery 07/08/25 20:44 07/08/25 22:52 07/09/25 00:00 Temperature Pulse Rate 71 70 69 Respiratory Rate 23 H Blood Pressure Pulse Oximetry 97 Oxygen Delivery CPAP 07/09/25 03:09 Temperature 97.6 F Pulse Rate 66 Respiratory Rate 20 Blood Pressure 115/40 L Pulse Oximetry 99 Oxygen Delivery Intake/Output Intake/Output: Intake & Output 11/30/25 07/07/25 07/08/25 07/09/25 23:59 23:59 23:59 23:59 Intake Total 2130 1220 1560 200 Output Total 727 093 8778 300 Balance 1730 420 310 -100 Meds/Results Medications: Active Medications Generic Name Dose Route Start Last Admin Trade Name Freq PRN Reason Stop Dose Admin Acetaminophen 1,000 mg 07/03/25 12:52 07/07/25 13:15 Acetaminophen 500 Mg Tablet PO 1,000 mg Q6H PRN Administration Mild Pain (1-3) or Fever Hydrocodone Bitart/Acetaminophen 1 tab 07/01/25 21:32 07/08/25 17:18 Hydrocodone/Acetaminophen (*Crx) 5-325 Mg Tablet PO 1 tab Q4H PRN Administration Pain Rated 4-6 Calcium Carbonate 200 mg 06/27/25 11:32 Calcium Carbonate (Tums) 500 Mg (200 Mg Elemental) PO Q6H PRN Indigestion Docusate Sodium 100 mg 06/30/25 10:49 07/03/25 09:42 Docusate Sodium 100 Mg Capsule PO 100 mg Q12H PRN Administration Constipation Fentanyl Citrate 25 mcg 07/01/25 14:44 07/01/25 15:32 Fentanyl Citrate Inj (*Crx) 100 Mcg/2 Ml Vial IV PUSH 25 mcg Q2M PRN Administration Pain Furosemide 20 mg 07/08/25 17:00 07/08/25 16:41 Furosemide 20 Mg Tablet PO 20 mg BID ELISA Administration Meropenem 1 gm/ Sodium 100 mls @ 200 mls/hr 07/04/25 14:00 07/09/25 05:57 Chloride IVPB 07/09/25 06:29 Infused Q8HR ELISA Infusion Ondansetron HCl 4 mg 06/27/25 01:12 Ondansetron Inj 4 Mg/2 Ml Vial IV PUSH Q4H PRN Nausea Ondansetron HCl 4 mg 07/01/25 14:44 Ondansetron Inj 4 Mg/2 Ml Vial IV PUSH ONCE PRN Nausea Polyethylene Glycol 17 gm 06/30/25 10:53 07/03/25 09:43 Polyethylene Glycol 3350 17 Gm Powd.Pack PO 17 gm QAM PRN Administration Constipation Solifenacin 5 mg 07/02/25 09:00 07/08/25 08:12 Solifenacin 5 Mg Tablet PO 5 mg QAM ELISA Administration Spironolactone 50 mg 07/07/25 10:25 07/08/25 08:12 Spironolactone 50 Mg Tablet PO 50 mg QAM ELISA Administration Radiology Results: ITS Impressions Chest X-Ray 06/26/25 18:12 IMPRESSION: 1. Abdomen/Pelvis CTA 06/27/25 06:48 IMPRESSION: 1. Mild pulmonary edema with small pleural effusions. 2. Cirrhosis of the liver. 3. Small volume of ascites. 4. Bladder mass suspicious for urothelial carcinoma. Hematoma in the bladder. 5. Wall thickening of the rectum, consistent with proctitis. Abdomen/Pelvis CT 07/03/25 07:19 IMPRESSION: 1. Highly worrisome for urinary bladder perforation. Pelvis CT 07/05/25 10:51 IMPRESSION: 1. Small bladder leak again identified. Labs Labs: Laboratory Results - last 24 hr 06/27/25 07/08/25 07/08/25 00:08 05:42 11:37 WBC 4.1 L RBC 3.23 L Hgb 8.3 L Hct 27.0 L MCV 83.6 MCH 25.7 L MCHC 30.7 L RDW 21.7 H Plt Count 53 L MPV TNP Immature Gran % (Auto) Not Reportable Neut % (Auto) Not Reportable Lymph % (Auto) Not Reportable Ev[place] % (Auto) Not Reportable Eos % (Auto) Not Reportable Baso % (Auto) Not Reportable Lymph # (Auto) Not Reportable Evangeline # (Auto) Not Reportable Eos # (Auto) Not Reportable Baso # (Auto) Not Reportable Abs Immat Gran (auto) Not Reportable Absolute Neuts (auto) Not Reportable Absolute Nucleated RBC Not Reportable Total Counted 100 Neutrophils % (Manual) 79 H Band Neutrophils % Not Reportable Lymphocytes % (Manual) 16.0 L Monocytes % (Manual) 4 Basophils % (Manual) 1 Nucleated RBC % Not Reportable Abs Lymphs (Manual) 0.65 L Abs Monocytes (Manual) 0.16 Abs Basophils (Manual) 0.04 Nucleated RBCs 2 Platelet Estimate Decreased % Immature Plt Fraction 5.5 Polychromasia Occasional Hypochromasia 1+ Anisocytosis 1+ Ovalocytes 1+ Schistocytes None seen Sodium 132 L Potassium 4.2 Chloride 109 H Carbon Dioxide 25 Anion Gap -2 L BUN 14 D Creatinine 0.85 Estim Creat Clear Calc Not Reportable Estimated GFR > 60 Glucose 148 H POC Capillary Glucose 161 H Calcium 7.6 L Magnesium 2.3 Total Bilirubin 1.0 AST 45 H ALT 33 Alkaline Phosphatase 167 H Total Protein 5.1 L Albumin 2.1 L Urine Color Dark red H Random Vancomycin 11.5 07/08/25 07/09/25 23:21 04:46 WBC 5.2 RBC 3.23 L Hgb 8.5 L Hct 27.7 L MCV 85.8 MCH 26.3 MCHC 30.7 L RDW 21.8 H Plt Count 67 L MPV 9.9 Immature Gran % (Auto) 4.4 H Neut % (Auto) 59.4 Lymph % (Auto) 25.4 Evangeline % (Auto) 9.8 H Eos % (Auto) 0.6 Baso % (Auto) 0.4 Lymph # (Auto) 1.32 Evangeline # (Auto) 0.5 Eos # (Auto) 0.0 Baso # (Auto) 0.0 Abs Immat Gran (auto) 0.23 H Absolute Neuts (auto) 3.1 Absolute Nucleated RBC 0.080 H Total Counted Neutrophils % (Manual) Band Neutrophils % Not Reportable Lymphocytes % (Manual) Monocytes % (Manual) Basophils % (Manual) Nucleated RBC % 1.5 H Abs Lymphs (Manual) Abs Monocytes (Manual) Abs Basophils (Manual) Nucleated RBCs Platelet Estimate Decreased % Immature Plt Fraction 4.8 Polychromasia Occasional Hypochromasia 1+ Anisocytosis 1+ Ovalocytes 1+ Schistocytes None seen Sodium 132 L Potassium 4.1 Chloride 108 H Carbon Dioxide 24 Anion Gap 0 L BUN 14 Creatinine 0.91 Estim Creat Clear Calc Not Reportable Estimated GFR 60 Glucose 117 H POC Capillary Glucose 166 H Calcium 7.8 L Magnesium 2.2 Total Bilirubin 1.0 AST 41 H ALT 29 Alkaline Phosphatase 173 H Total Protein 5.0 L Albumin 2.1 L Urine Color Random Vancomycin
[2025-07-09 08:00] VITALS: PULSE 67
[2025-07-09] MEDS: FUROSEMIDE 20 MG TABLET PO ×2 (09:11→16:54)
[2025-07-09] MEDS: SOLIFENACIN 5 MG TABLET PO (09:11)
[2025-07-09] MEDS: SPIRONOLACTONE 50 MG TABLET PO (09:11)
[2025-07-09 14:00] VITALS: BP 116/42; PULSE 70; RESP 16; TEMP 37.1; O2SAT 98
--- NOTE | 2025-07-09 16:08 | P.PNIM_ITS ---
Assessment and Plan Assessment and Plan (1) Hematuria: Code(s): R31.9 - Hematuria, unspecified Status: Acute Assessment and Plan: Likely 2/2 bladder mass as seen on CT with hematoma in the bladder Hgb 3.1 on admission s/p 3 unit prbc transfused with adequate response Hgb 6.7 on 06/29 and again received 1 unit prbc transfusion with adequate response -the patient has not been on any blood thinners. -continue to monitor H/H, has since been stable - urology consulted s/p for cysto, TURBT with Dr. Escoto on 07/[address] 07/02 -POD 1 cysto, TURBT with Dr. Escoto CBI d/c, urine is yellow urology following hg stable 07/03 hg/hct 8.3/27.[address] ordered. Pancultured 07/04:-CT abdomen followed by CT urogram consistent with bladder wall perforation. Repeat urogram per urology that redemonstration of bladder leak. Follow-up urogram as an outpatient basis in 1-2 weeks planned. Bladder pathology came back as high-grade urothelial carcinoma invasive follow- up with urology as outpatient basis. (2) Urinary tract infection: Qualifiers: Hematuria presence: with hematuria Urinary tract infection type: acute cystitis Qualified Code(s): N30.01 - Acute cystitis with hematuria Code(s): N39.0 - Urinary tract infection, site not specified Status: Inactive Assessment and Plan: - UC: ecoli pansensitive - previous micro reviewed 06/17/24: klebsiella pneumoniae - started on rocephin on 06/28 07/02- urine culture growing e coli, continue antibiotic 07/03 spiked fever this am, VS stable. Urine/c/s and BC collected. pelvic CT ordered [address] reviewed. Will broaden antibiotics with vancomycin and meropenem Remains afebrile Urine culture still pending. Stop vancomycin. Will complete 5 days course of meropenem which will conclude tomorrow Remains afebrile (3) Bladder mass: Code(s): N32.89 - Other specified disorders of bladder Status: Acute Assessment and Plan: Abdomen/pelvis CTA showed bladder mass suspicious for urothelial carcinoma - Urology consulted s/p for cysto, TURBT and Gemcitabine 2gm administered through the catheter/into the bladder with DR. Escoto on 07/01 maintain garcía catheter for urinary diversion Pathology back with high-grade invasive urothelial carcinoma follow-up with Urology as outpatient basis for further evaluation and management (4) Obstructive sleep apnea: Code(s): G47.33 - Obstructive sleep apnea (adult) (pediatric) Status: Acute Assessment and Plan: -continue CPAP as per home settings. (5) Elevated blood sugar: Code(s): R73.9 - Hyperglycemia, unspecified Status: Acute Assessment and Plan: -the patient had an elevated blood sugar on admission - A1c 6.3 on 06/27/25 Reviewed glucose and remains stable. (6) Postoperative perforation of urinary bladder: Code(s): N99.89 - Other postprocedural complications and disorders of genitourinary system; S37.29XA - Other injury of bladder, initial encounter Status: Acute Assessment and Plan: Postoperative bladder wall perforation noted on CT Planned expectant management with small size Maintain catheter and will have cystogram performed in 1-2 weeks post discharge Continue to monitor (7) Cirrhosis: Code(s): K74.60 - Unspecified cirrhosis of liver Status: Acute Assessment and Plan: As noted on CT This never been worked up in the past per patient Hepatitis profile negative Does have significant history of alcohol use in the past. Never had EGD performed Had spironolactone Will add Lasix today Plan patient with hematuria is found to have a bladder mass bladder pathology showed T1, high-grade urothelial ca. / no muscle invasion and had cystoscopy TURBT with her urologist on 07/02, CBI is d/c as her urine is clear. patient is clinicaly stable, but has not been out of the bed, will have PT evaluate the patient, patient will benefit going to rehab before going home. Thrombocytopenia acute on chronic 103 on 06/2024. Iron deficiency with low ferritin and % desaturation no EGD in the past. Colonoscopy more than 10 years ago. Received IV Venofer GI consult and need follow-up as an outpatient basis for EGD and colonoscopy Hyponatremia worsening. Normal saline treatment lowered it suggestive of SIADH. Stopped IV normal saline add salt tablet. Lasix if needed. Water restriction. Sodium stable. Will stop salt tablets. Recheck in a.m. Subjective Date/time seen: 07/09/25 16:08 Interval history: Comfortable, no complaints patient with hematuria is found to have a bladder mass bladder pathology showed T1, high-grade urothelial ca. / no muscle invasion and had cystoscopy TURBT with her urologist on 07/02, CBI is d/c as her urine is clear. patient is clinicaly stable, but has not been out of the bed, will have PT evaluate the patient, patient will benefit going to rehab before going home. Exam Narrative: Patient is comfortable, NAD HEENT: eyes are clear and none icteric LUNGS:CTA HEART: RR S1S2 ABD: BS+, Soft and nontender Lower extremities: no edema SKIN: nonjaundiced Neuro: grossly intact. Objective Data Vital Signs Vital Signs: Vital Signs - 24 hr 07/08/25 20:11 07/08/25 20:44 07/08/25 22:52 Temperature 36.4 C Pulse Rate 67 71 70 Respiratory Rate 20 23 H Blood Pressure 122/39 L Pulse Oximetry 93 97 Oxygen Delivery CPAP 07/09/25 00:00 07/09/25 03:09 07/09/25 04:00 Temperature 36.4 C Pulse Rate 69 66 73 Respiratory Rate 20 Blood Pressure 115/40 L Pulse Oximetry 99 Oxygen Delivery 07/09/25 08:00 07/09/25 09:10 07/09/25 14:00 Temperature 37.1 C Pulse Rate 67 70 Respiratory Rate 16 Blood Pressure 116/42 L Pulse Oximetry 98 Oxygen Delivery Room Air Intake/Output Intake/Output: Intake & Output 07/06/25 07/07/25 07/08/25 07/09/25 23:59 23:59 23:59 23:59 Intake Total 2130 1220 1560 560 Output Total 153 791 9984 300 Balance 1730 420 310 260 Meds/Results Medications: Active Medications Generic Name Dose Route Start Last Admin Trade Name Freq PRN Reason Stop Dose Admin Acetaminophen 1,000 mg 07/03/25 12:52 07/07/25 13:15 Acetaminophen 500 Mg Tablet PO 1,000 mg Q6H PRN Administration Mild Pain (1-3) or Fever Hydrocodone Bitart/Acetaminophen 1 tab 07/01/25 21:32 07/08/25 17:18 Hydrocodone/Acetaminophen (*Crx) 5-325 Mg Tablet PO 1 tab Q4H PRN Administration Pain Rated 4-6 Calcium Carbonate 200 mg 06/27/25 11:32 Calcium Carbonate (Tums) 500 Mg (200 Mg Elemental) PO Q6H PRN Indigestion Docusate Sodium 100 mg 06/30/25 10:49 07/03/25 09:42 Docusate Sodium 100 Mg Capsule PO 100 mg Q12H PRN Administration Constipation Fentanyl Citrate 25 mcg 07/01/25 14:44 07/01/25 15:32 Fentanyl Citrate Inj (*Crx) 100 Mcg/2 Ml Vial IV PUSH 25 mcg Q2M PRN Administration Pain Furosemide 20 mg 07/08/25 17:00 07/09/25 09:11 Furosemide 20 Mg Tablet PO 20 mg BID ELISA Administration Ondansetron HCl 4 mg 06/27/25 01:12 Ondansetron Inj 4 Mg/2 Ml Vial IV PUSH Q4H PRN Nausea Ondansetron HCl 4 mg 07/01/25 14:44 Ondansetron Inj 4 Mg/2 Ml Vial IV PUSH ONCE PRN Nausea Polyethylene Glycol 17 gm 06/30/25 10:53 07/03/25 09:43 Polyethylene Glycol 3350 17 Gm Powd.Pack PO 17 gm QAM PRN Administration Constipation Solifenacin 5 mg 07/02/25 09:00 07/09/25 09:11 Solifenacin 5 Mg Tablet PO 5 mg QAM ELISA Administration Spironolactone 50 mg 07/07/25 10:25 07/09/25 09:11 Spironolactone 50 Mg Tablet PO 50 mg QAM ELISA Administration Radiology Results: ITS Impressions Chest X-Ray 06/26/25 18:12 IMPRESSION: 1. Abdomen/Pelvis CTA 06/27/25 06:48 IMPRESSION: 1. Mild pulmonary edema with small pleural effusions. 2. Cirrhosis of the liver. 3. Small volume of ascites. 4. Bladder mass suspicious for urothelial carcinoma. Hematoma in the bladder. 5. Wall thickening of the rectum, consistent with proctitis. Abdomen/Pelvis CT 07/03/25 07:19 IMPRESSION: 1. Highly worrisome for urinary bladder perforation. Pelvis CT 07/05/25 10:51 IMPRESSION: 1. Small bladder leak again identified. Labs Labs: Laboratory Results - last 24 hr 07/08/25 07/09/25 07/09/25 23:21 04:46 12:04 WBC 5.2 RBC 3.23 L Hgb 8.5 L Hct 27.7 L MCV 85.8 MCH 26.3 MCHC 30.7 L RDW 21.8 H Plt Count 67 L MPV 9.9 Immature Gran % (Auto) 4.4 H Neut % (Auto) 59.4 Lymph % (Auto) 25.4 Terrell % (Auto) 9.8 H Eos % (Auto) 0.6 Baso % (Auto) 0.4 Lymph # (Auto) 1.32 [place]rell # (Auto) 0.5 Eos # (Auto) 0.0 Baso # (Auto) 0.0 Abs Immat Gran (auto) 0.23 H Absolute Neuts (auto) 3.1 Absolute Nucleated RBC 0.080 H Band Neutrophils % Not Reportable Nucleated RBC % 1.5 H Platelet Estimate Decreased % Immature Plt Fraction 4.8 Polychromasia Occasional Hypochromasia 1+ Anisocytosis 1+ Ovalocytes 1+ Schistocytes None seen Sodium 132 L Potassium 4.1 Chloride 108 H Carbon Dioxide 24 Anion Gap 0 L BUN 14 Creatinine 0.91 Estim Creat Clear Calc Not Reportable Estimated GFR 60 Glucose 117 H POC Capillary Glucose 166 H 167 H Calcium 7.8 L Magnesium 2.2 Total Bilirubin 1.0 AST 41 H ALT 29 Alkaline Phosphatase 173 H Total Protein 5.0 L Albumin 2.1 L
[2025-07-09 22:00] VITALS: BP 125/50; PULSE 97; RESP 16; TEMP 36.2; O2SAT 96
[2025-07-10 06:00] VITALS: BP 132/49; PULSE 62; RESP 20; TEMP 36.3; O2SAT 100
[2025-07-10] MEDS: FUROSEMIDE 20 MG TABLET PO ×2 (08:46→16:58)
[2025-07-10] MEDS: SPIRONOLACTONE 50 MG TABLET PO (08:46)
[2025-07-10] MEDS: SOLIFENACIN 5 MG TABLET PO (08:46)
[2025-07-10 08:59] LABS: Hematocrit 30.4 % (37.0-47.0); Hemoglobin 9.5 g/dL (12.0-15.0); Immature Platelet Fraction Pct 3.7 % (0.9-11.2); Mean Corpuscular HGB Conc 31.3 g/dl (32-36); Mean Corpuscular Hemoglobin 26.5 pg (26-34); Mean Corpuscular Volume 84.9 fl (80-100); Platelet Count Result 90 k/mm3 (150-375); Red Blood Count 3.58 M/mm3 (4.2-5.4); White Blood Count 4.9 K/mm3 (4.5-10.0)
[2025-07-10 09:16] LABS: Anion Gap -1 mmol/L (4-12); Blood Urea Nitrogen 12 mg/dL (7-17); Calcium 8.0 mg/dL (8.4-10.2); Carbon Dioxide 26 mmol/L (22-30); Chloride 107 mmol/L (98-107); Estimated Glomerular Filt Rate > 60; Glucose 119 mg/dL (65-110); Magnesium 1.9 mg/dL (1.6-2.3); Potassium 3.6 mmol/L (3.4-5.0); Sodium 132 mmol/L (137-145)
--- NOTE | 2025-07-10 12:00 | PM.DS ---
DS: Admitting Diagnosis Discharge Date 07/10/25 Admitting Diagnosis Cervical cancer with radiation and chemotherapy. DS: Discharge Diagnosis Discharge Diagnosis (1) Hematuria: Code(s): R31.9 - Hematuria, unspecified Status: Acute Assessment and Plan: Likely 2/2 bladder mass as seen on CT with hematoma in the bladder Hgb 3.1 on admission s/p 3 unit prbc transfused with adequate response Hgb 6.7 on 06/29 and again received 1 unit prbc transfusion with adequate response -the patient has not been on any blood thinners. -continue to monitor H/H, has since been stable - urology consulted s/p for cysto, TURBT with Dr. Escoto on 07/[address] 07/02 -POD 1 cysto, TURBT with Dr. Escoto CBI d/c, urine is yellow urology following hg stable 07/03 hg/hct 8.3/27.[address] ordered. Pancultured 07/04:-CT abdomen followed by CT urogram consistent with bladder wall perforation. Repeat urogram per urology that redemonstration of bladder leak. Follow-up urogram as an outpatient basis in 1-2 weeks planned. Bladder pathology came back as high-grade urothelial carcinoma invasive follow-up with urology as outpatient basis. (2) Urinary tract infection: Qualifiers: Hematuria presence: with hematuria Urinary tract infection type: acute cystitis Qualified Code(s): N30.01 - Acute cystitis with hematuria Code(s): N39.0 - Urinary tract infection, site not specified Status: Inactive Assessment and Plan: - UC: ecoli pansensitive - previous micro reviewed 06/17/24: klebsiella pneumoniae - started on rocephin on 06/28 07/02- urine culture growing e coli, continue antibiotic 07/03 spiked fever this am, VS stable. Urine/c/s and BC collected. pelvic CT ordered [address] reviewed. Will broaden antibiotics with vancomycin and meropenem Remains afebrile Urine culture still pending. Stop vancomycin. Will complete 5 days course of meropenem which will conclude tomorrow Remains afebrile (3) Bladder mass: Code(s): N32.89 - Other specified disorders of bladder Status: Acute Assessment and Plan: Abdomen/pelvis CTA showed bladder mass suspicious for urothelial carcinoma - Urology consulted s/p for cysto, TURBT and Gemcitabine 2gm administered through the catheter/into the bladder with DR. Escoto on 07/01 maintain garcía catheter for urinary diversion Pathology back with high-grade invasive urothelial carcinoma follow-up with Urology as outpatient basis for further evaluation and management (4) Obstructive sleep apnea: Code(s): G47.33 - Obstructive sleep apnea (adult) (pediatric) Status: Acute Assessment and Plan: -continue CPAP as per home settings. (5) Elevated blood sugar: Code(s): R73.9 - Hyperglycemia, unspecified Status: Acute Assessment and Plan: -the patient had an elevated blood sugar on admission - A1c 6.3 on 06/27/25 Reviewed glucose and remains stable. (6) Postoperative perforation of urinary bladder: Code(s): N99.89 - Other postprocedural complications and disorders of genitourinary system; S37.29XA - Other injury of bladder, initial encounter Status: Acute Assessment and Plan: Postoperative bladder wall perforation noted on CT Planned expectant management with small size Maintain catheter and will have cystogram performed in 1-2 weeks post discharge Continue to monitor (7) Cirrhosis: Code(s): K74.60 - Unspecified cirrhosis of liver Status: Acute Assessment and Plan: As noted on CT This never been worked up in the past per patient Hepatitis profile negative Does have significant history of alcohol use in the past. Never had EGD performed Had spironolactone Will add Lasix today Plan patient with hematuria is found to have a bladder mass bladder pathology showed T1, high-grade urothelial ca. / no muscle invasion and had cystoscopy TURBT with her urologist on 07/02, CBI is d/c as her urine is clear. patient is clinicaly stable, but has not been out of the bed, will have PT evaluate the patient, patient will benefit going to rehab before going home. Thrombocytopenia acute on chronic 103 on 06/2024. Iron deficiency with low ferritin and % desaturation no EGD in the past. Colonoscopy more than 10 years ago. Received IV Venofer GI consult and need follow-up as an outpatient basis for EGD and colonoscopy Hyponatremia worsening. Normal saline treatment lowered it suggestive of SIADH. Stopped IV normal saline add salt tablet. Lasix if needed. Water restriction. Sodium stable. Will stop salt tablets. Recheck in a.m. DS: Summary Hospital Course Hospital Course: patient with hematuria is found to have a bladder mass bladder pathology showed T1, high-grade urothelial ca. / no muscle invasion and had cystoscopy TURBT with her urologist on 07/02, CBI is d/c as her urine is clear. patient is clinicaly stable, but has not been out of the bed, will have PT evaluate the patient, patient will benefit going to rehab before going home. patient is clinically stable and her baseline, will discharge home today. Time Spent with Patient Time attestation: Total time spent providing and/or coordinating discharge services: Exam Narrative: Patient is comfortable, NAD HEENT: eyes are clear and none icteric LUNGS:CTA HEART: RR S1S2 ABD: BS+, Soft and nontender Lower extremities: no edema SKIN: nonjaundiced Neuro: grossly intact. DS: Data Data Completed and Pending Completed studies during hospitalization: Pending at discharge 07/01/25 14:31 Surgical [PTH] Routine Labs on day of discharge: Labs from last 24 hours 07/10/25 07/09/25 07/09/25 08:45 21:29 12:04 WBC 4.9 RBC 3.58 L Hgb 9.5 L Hct 30.4 L MCV 84.9 MCH 26.5 MCHC 31.3 L RDW 22.5 H Plt Count 90 L MPV 9.4 % Immature Plt Fraction 3.7 Sodium 132 L Potassium 3.6 Chloride 107 Carbon Dioxide 26 Anion Gap -1 L BUN 12 Creatinine 0.88 Estim Creat Clear Calc Not Reportable Estimated GFR > 60 Glucose 119 H POC Capillary Glucose 162 H 167 H Calcium 8.0 L Magnesium 1.9 Preliminary micro results at discharge 07/03/25 06:50 Blood Culture - Preliminary Blood 07/03/25 06:49 Blood Culture - Preliminary Blood Discharge Plan Discharge Attending physician on discharge: Chris Langford Consulting providers: Lisa Drummond; Anahy Esquivel; Jose Blackman; Momo Blair; Joseluis Aguilar; Phylicia Lorenz; Michelle Meeks; Richmond Liu; Vick Delcid; Keaton Escoto; Adi Fuchs; Alvin Meléndez; Alma Melendez; Heath Valencia; Babar Geronimo V.; Nick Brink; Fausto Hartley Discharging Clinician: Jessica Morgan Patient Disposition: Home with Home Health Service Activity: as tolerated Diet: heart healthy Discharge Instructions: Patient to follow discharge care instruction from her urologist and follow up as scheduled, patient to follow up with her primary care provider as soon as possible, Patient Instructions: Antibiotic Form, Low-Sodium Diet (DC) Patient Language: Slovenian Stand Alone Forms: General Discharge Information Follow-up/Referrals: Allen Simon MD [Physician, Urology] PHYSICIAN,MEDICAL MANAGEMENT SPECIALIST [Primary Care Provider, Internal Medicine] Discharge Medications: New polyethylene glycol 3350 [Miralax] 17 gram Powder In Packet 17 g PO QAM PRN (Reason: Constipation) Qty: 30 0RF docusate sodium 100 mg Capsule 100 mg PO Q12H PRN (Reason: Constipation) Qty: 30 0RF calcium carbonate 500 mg calcium (1,250 mg) Tablet,Chewable 200 mg PO Q6H PRN (Reason: Indigestion) Qty: 30 0RF furosemide 20 mg Tablet 20 mg PO BID Qty: 60 0RF spironolactone [Aldactone] 50 mg Tablet 50 mg PO QAM Qty: 30 0RF solifenacin [Vesicare] 5 mg Tablet 5 mg PO QAM Qty: 30 0RF cephalexin 250 mg capsule 250 mg PO ONCE Qty: 30 0RF Date of admission: 06/27/25 14:40 Primary Care Provider: PHYSICIAN,MEDICAL MANAGEMENT SPECIALIST Admitting Provider: Chris Langford Attending physician on admission: Jessica Morgan Condition: Stable
[2025-07-10 14:00] VITALS: BP 126/41; PULSE 74; RESP 14; TEMP 37.3; O2SAT 98
== END 2025-07-10 17:55 | disposition home or self-care (01) | DRG 669 ==
LOC: ANHED 06-27 02:03 → ANH3MEDSUR 06-27 02:09 → ANH2MED 06-27 03:10
PROVIDERS: Emergency Medicine; Internal Medicine; Nurse Practitioner; Nurse Practitioner Adult Health; Urology; Admitting Provider Internal Medicine; Emergency Provider Student in an Organized Health Care Education/Training Program; Visit Provider Family Medicine
PROC: 0TBB8ZZ Excision of Bladder, Via Natural or Artificial Opening Endoscopic (ICD-10-PCS; principal; 2025-07-01 12:30)
DX: C67.8 Malignant neoplasm of overlapping sites of bladder (principal); E87.1 Hypo-osmolality and hyponatremia; N99.71 Accidental puncture and laceration of a genitourinary system organ or structure during a genitourinary system procedure; N17.9 Acute kidney failure, unspecified; N30.01 Acute cystitis with hematuria; B96.20 Unspecified Escherichia coli [E. coli] as the cause of diseases classified elsewhere; R50.82 Postprocedural fever; N32.89 Other specified disorders of bladder; D50.9 Iron deficiency anemia, unspecified; D69.6 Thrombocytopenia, unspecified; G47.33 Obstructive sleep apnea (adult) (pediatric); K74.60 Unspecified cirrhosis of liver; R73.9 Hyperglycemia, unspecified; Z85.41 Personal history of malignant neoplasm of cervix uteri; Z92.21 Personal history of antineoplastic chemotherapy; Z92.3 Personal history of irradiation; Z87.891 Personal history of nicotine dependence; Z99.89 Dependence on other enabling machines and devices; Z90.49 Acquired absence of other specified parts of digestive tract
CPT/HCPCS: 36415; 36430; 51720; 71046; 72192; 72193; 74174; 74176; 80048; 80053; 80074; 80202; 81001; 82607; 82728; 82746; 82948; 83010; 83036; 83540; 83550; 83605; 83735; 84145; 85014; 85018; 85025; 85027; 85046; 85055; 85610; 85730; 86850; 86900; 86901; 86923; 87040; 87086; 87186; 88307; 93005; 96374; 96375; 97161; 99285; A9270; G0378; J0696; J1171; J1756; J1836; J2185; J2405; J2470; J2704; J3010; J3373; J7030; J7050; J7120; J9201; P9016; Q9967

== ENCOUNTER 2025-07-23 10:50 | Outpatient (CLI) | payer MEDICAID, SELFPAY ==
--- NOTE | ~2025-07-23 | XR_ITS ---
EXAM/PROCEDURE: XR cystogram HISTORY: gross hernia; CHECKING FOR PREFORATED BLADDER COMPARISON: None TECHNIQUE: Standard technique for water-soluble contrast enhanced retrograde fluoroscopic cystogram. Catheter was in place on patient's arrival. Fluoroscopy time: 0.4 minutes DAP: 119.515 [place] per square centimeter Number of images: 17 Contrast: Only about 50 mL of water soluble sterile contrast mixture were instilled retrograde via gravity before patient began complaining of significant pain. The infusion was stopped immediately, with several images obtained and followed by prompt draining of the contrast. FINDINGS: On the agricultural engineering technicians image, surgical clips overlie the mid pelvis along with phlebolith-appearing calcifications. Vascular calcifications also noted. Nonfilling of the urinary bladder, irregular appearance of the dome of the bladder is present. No extravasation of contrast seen. On post void images, no contrast seen within the pelvis. IMPRESSION: Limited exam with only about 50 mL of contrast instilled retrograde via gravity with no leakage/extravasation identified. The dome of the bladder has irregular appearance consistent with scarring or surgical changes. Reviewed, dictated and finalized at location A. [facility] [employer] IMPRESSION: Limited exam with only about 50 mL of contrast instilled retrograde via gravity with no leakage/extravasation identified. The dome of the bladder has irregula r appearance consistent with scarring or surgical changes.
== END 2025-07-23 10:51 | disposition home or self-care (01) ==
PROVIDERS: PCP Emergency Medicine; Visit Provider Urology
DX: R31.0 Gross hematuria (principal)
CPT/HCPCS: 51600; 74430; Q9967